=== PATIENT | female | born 1960 | race American Indian/Alaskan Native ===

== ENCOUNTER 2017-12-24 08:17 | Emergency (ER) | payer OTHER ==
[2017-12-24 08:37] VITALS: BP 159/86
[2017-12-24 09:20] LABS: Basophils # (Auto) 0.1 K/mm3 (0.0-0.1); Basophils % (Auto) 0.8 % (0.0-1.8); Eosinophils % (Auto) 0.2 % (0.0-4.3); Hematocrit 38.7 % (30.3-42.9); Lymphocytes # (Auto) 0.5 K/mm3 (1.2-5.4); Lymphocytes % (Auto) 5.5 % (13.4-35.0); Mean Corpuscular HGB Conc 31 % (30-34); Mean Corpuscular Volume 78 fl (79-97); Monocytes # (Auto) 0.4 K/mm3 (0.0-0.8); Monocytes % (Auto) 4.7 % (0.0-7.3); Platelet Count 497 K/mm3 (140-440); Red Blood Count 4.94 M/mm3 (3.65-5.03)
[2017-12-24 09:23] LABS: Mean Corpuscular Hemoglobin 24 pg (28-32); Red Cell Distribution Width 20.6 % (13.2-15.2)
[2017-12-24 09:38] LABS: Alanine Aminotransferase < 5 units/L (7-56); Albumin 3.9 g/dL (3.9-5); BUN/Creatinine Ratio 19; Blood Urea Nitrogen 21 mg/dL (7-17); Calcium 9.1 mg/dL (8.4-10.2); Hemolysis Index 4
== END 2017-12-24 11:07 | disposition left against medical advice (07) ==
LOC: ED 08:17
DX: R07.9 Chest pain, unspecified (principal); Z53.21 Procedure and treatment not carried out due to patient leaving prior to being seen by health care provider
CPT/HCPCS: 36415; 80053; 85025

== ENCOUNTER 2018-01-06 10:37 | Inpatient (IN) | payer OTHER ==
[2018-01-06] MEDS ORDERED: MORPHINE IV PRN (10:44)
[2018-01-06] MEDS: REGLAN IV SCH ×2 (12:31→18:21)
[2018-01-06] MEDS: ZOFRAN IV PRN ×2 (12:31→18:22)
[2018-01-06] MEDS: MORPHINE IV PRN ×2 (12:32→16:25)
[2018-01-06] MEDS: D5/0.45NS 1,000 ML IV SCH ×2 (12:33→19:40)
[2018-01-06 13:10] LABS: Basophils % (Auto) 0.4 % (0.0-1.8); Hematocrit 40.7 % (30.3-42.9); Lymphocytes # (Auto) 0.4 K/mm3 (1.2-5.4); Lymphocytes % (Auto) 5.3 % (13.4-35.0); Mean Corpuscular HGB Conc 32 % (30-34); Mean Corpuscular Volume 78 fl (79-97); Monocytes # (Auto) 0.6 K/mm3 (0.0-0.8); Monocytes % (Auto) 7.6 % (0.0-7.3); Platelet Count 423 K/mm3 (140-440); Red Blood Count 5.19 M/mm3 (3.65-5.03)
[2018-01-06 13:14] LABS: Mean Corpuscular Hemoglobin 25 pg (28-32); Red Cell Distribution Width 21.7 % (13.2-15.2)
[2018-01-06 13:18] LABS: Albumin 3.7 g/dL (3.9-5); Calcium 9.7 mg/dL (8.4-10.2)
[2018-01-06 13:21] LABS: INR 0.95 (0.87-1.13)
[2018-01-06 13:22] LABS: Partial Thromboplastin Time 28.3 Sec. (24.2-36.6)
[2018-01-06] MEDS: LOVENOX SUB-Q SCH (16:26)
[2018-01-06] MEDS: PROTONIX IV SCH (16:27)
--- NOTE | 2018-01-06 18:00 | History and Physical Report ---
History of Present Illness Date of examination: 01/06/18 Date of admission: 01/06/18 11:08 Chief complaint: Abdominal pain, n/V and inability to keep any food down for 4 days History of present illness: Pt is a 57 y/o lady with a history of Chronic afib, Diastolic heart failure, HTN , gastric bypass, pancreatitis who presented to my office today in company of her complaing of inability to keep any food down on account on intractable nausea sn vomting. vomits 4-5 x a day. Bilious. Associated with Upper abdominal pain. Dull in nature, 8-10/10 in severity. nonradiating. No aggravating or relieving factors. Denies any hematemesis or melena. No fever or chills. Pt was wheeled into my office on a wheel chair in severe abdominal pain with a bag continuing greenish vomitus. Direct admission was requested as pt reaffirmed that pt has not been able to eat for the past 4 days. On admission BUN was elevate and creatinine were eldvated to 19 and 1.4 respectively. transaminases were levated twith a total bili of 4.5 and elevated lipase of 239. Pt ws commence on iv hydration NPO, iv zofran pepcid and levaquin and Past History Past Medical History: atrial fib, diabetes, GERD, heart failure, hypertension Past Surgical History: Other (gastric bypas) Social history: denies: smoking, alcohol abuse, prescription drug abuse Family history: no significant family history Medications and Allergies Allergies Allergy/AdvReac Type Severity Reaction Status Date / Time amoxicillin [Amoxicillin] Allergy Unknown Verified 12/24/17 08:33 NSAIDS (Non-Steroidal Allergy Bleeding Verified 12/24/17 08:33 Anti-Inflamma prednisone Allergy Diarrhea Verified 12/24/17 08:33 Home Medications Medication Instructions Recorded Confirmed Last Taken Type Hydralazine HCl [hydrALAZINE] 100 mg PO TID 09/25/13 12/24/17 01/02/18 History Apixaban [Eliquis] 5 mg PO BID #60 tablet 12/29/17 01/02/18 Rx AtorvaSTATin [Lipitor] 20 mg PO QHS #30 tablet 12/29/17 01/02/18 Rx Bumetanide [Bumex 1 mg tab] 2 mg PO QDAY #30 tablet 12/29/17 01/02/18 Rx Carvedilol [Coreg] 12.5 mg PO BID #60 tablet 12/29/17 01/02/18 Rx Escitalopram [Lexapro] 10 mg PO DAILY #30 tablet 12/29/17 01/02/18 Rx Lisinopril [Zestril TAB] 20 mg PO BID #60 tablet 12/29/17 01/02/18 Rx Ondansetron [Zofran Odt] 4 mg PO Q8H PRN #30 tab.rapdis 12/29/17 01/02/18 Rx Spironolactone [Aldactone] 25 mg PO QDAY #30 tablet 12/29/17 01/02/18 Rx Sucralfate [Carafate] 1 gm PO Q6HR 30 Days oral.liqd 12/29/17 01/07/18 Rx Active Meds: Active Medications Enoxaparin Sodium (Lovenox) 40 mg SUB-Q QDAY [facility] Last Admin: 01/06/18 16:26 Dose: 40 mg Dextrose/Sodium Chloride (D5/0.45ns) 1,000 mls @ 150 mls/hr IV DIRECT [facility] Last Admin: 01/06/18 12:33 Dose: 150 mls/hr Metoclopramide HCl (Reglan) 10 mg IV Q8H [facility] Last Admin: 01/06/18 12:31 Dose: 10 mg Morphine Sulfate (Morphine) 2 mg IV Q4H PRN PRN Reason: Pain, Moderate (4-6) Last Admin: 01/06/18 16:25 Dose: 2 mg Ondansetron HCl (Zofran) 4 mg IV Q6H PRN PRN Reason: Nausea And Vomiting Last Admin: 01/06/18 12:31 Dose: 4 mg Pantoprazole Sodium (Protonix) 40 mg IV Q12H [facility] Last Admin: 01/06/18 16:27 Dose: 40 mg Review of Systems Constitutional: anorexia, fatigue, malaise, lethargy Ears, nose, mouth and throat: no deferred, no ear pain, no ear discharge Breasts: no deferred, no normal Cardiovascular: no chest pain, no orthopnea, no palpitations Respiratory: no cough, no cough with sputum, no excessive sputum Gastrointestinal: abdominal pain, nausea, vomiting, no diarrhea, no BRBPR Genitourinary Female: dyspareunia Musculoskeletal: no neck pain, no shooting arm pain, no low back pain Integumentary: no rash, no pruritis, no redness, no sores, no wounds Neurological: no head injury, no transient paralysis, no paralysis, no weakness , no parathesias, no tingling Psychiatric: anxiety, no memory loss, no change in sleep habits, no sleep disturbances Endocrine: no cold intolerance, no heat intolerance, no polyphagia, no excessive thirst Hematologic/Lymphatic: no easy bruising, no easy bleeding Allergic/Immunologic: no urticaria, no allergic rhinitis Exam - Constitutional Vitals: Temp Pulse Resp BP Pulse Ox 99.5 F 71 16 181/106 98 01/06/18 15:27 01/06/18 15:27 01/06/18 16:25 01/06/18 15:27 01/06/18 15:27 General appearance: Present: no acute distress, mild distress, well-nourished - EENT Eyes: Present: PERRL - Neck Neck: Present: supple, normal ROM - Respiratory Respiratory effort: normal Respiratory: bilateral: CTA - Cardiovascular Heart Sounds: Present: S1 & S2. Absent: rub, click - Extremities Extremities: pulses symmetrical, No edema Peripheral Pulses: within normal limits - Abdominal General gastrointestinal: Present: soft, non-tender, non-distended, normal bowel sounds - Integumentary Integumentary: Present: clear, warm, dry - Musculoskeletal Musculoskeletal: generalized weakness - Psychiatric Psychiatric: appropriate mood/affect, intact judgment & insight - Neurologic Neurologic: CNII-XII intact, moves all extremities Results - Labs CBC & Chem 7: 01/07/18 04:45 01/07/18 04:45 Labs: Abnormal lab results 01/06/18 01/06/18 01/06/18 Range/Units 12:15 12:15 12:15 RBC 5.19 H (3.65-5.03) M/mm3 MCV 78 L (79-97) fl MCH 25 L (28-32) pg RDW 21.7 H (13.2-15.2) % Lymph % (Auto) 5.3 L (13.4-35.0) % [place] % (Auto) 7.6 H (0.0-7.3) % Lymph # 0.4 L (1.2-5.4) K/mm3 Seg Neutrophils % 86.7 H (40.0-70.0) % Potassium 3.5 L (3.6-5.0) mmol/L Chloride 92.7 L (98-107) mmol/L Carbon Dioxide 16 L (22-30) mmol/L BUN 19 H (7-17) mg/dL Creatinine 1.4 H (0.7-1.2) mg/dL Glucose 116 H (65-100) mg/dL Phosphorus 2.20 L (2.5-4.5) mg/dL Total Bilirubin 4.50 H (0.1-1.2) mg/dL AST 200 H (5-40) units/L ALT 193 H (7-56) units/L Alkaline Phosphatase 887 H (35-129) units/L Albumin 3.7 L (3.9-5) g/dL Amylase (27-131) units/L Lipase (13-60) units/L 01/06/18 01/06/18 Range/Units 12:15 12:15 RBC (3.65-5.03) M/mm3 MCV (79-97) fl MCH (28-32) pg RDW (13.2-15.2) % Lymph % (Auto) (13.4-35.0) % [place] % (Auto) (0.0-7.3) % Lymph # (1.2-5.4) K/mm3 Seg Neutrophils % (40.0-70.0) % Potassium (3.6-5.0) mmol/L Chloride (98-107) mmol/L Carbon Dioxide (22-30) mmol/L BUN (7-17) mg/dL Creatinine (0.7-1.2) mg/dL Glucose (65-100) mg/dL Phosphorus (2.5-4.5) mg/dL Total Bilirubin (0.1-1.2) mg/dL AST (5-40) units/L ALT (7-56) units/L Alkaline Phosphatase (35-129) units/L Albumin (3.9-5) g/dL Amylase 239 H (27-131) units/L Lipase 251 H (13-60) units/L Assessment and Plan - Possible stoma stenosis from Gastic bypass NPO, IVF, iv protonix an zofran GI consult - ROCÍO- likey form acute tubular necrosis iv hydration and trend BUN CR - Gastroporesis NPO iv mophin and Zofran - GERD ibvprotonix - Acute on Chronic pancreatitis NPO IV hydration -Abormal liver enzymes Abdomina US for any evidence of biliray obstruction - Hypokalemai and hypophosphatemia Supplement DVT and GI ppx with lovenox and pepcid Spent 35 min during this admission
[2018-01-07] MEDS: APRESOLINE IV PRN (00:06)
[2018-01-07] MEDS: MORPHINE IV PRN ×6 (00:09→22:18)
[2018-01-07] MEDS: PROTONIX IV SCH ×2 (00:25→11:57)
[2018-01-07] MEDS: REGLAN IV SCH ×3 (03:14→19:36)
--- NOTE | 2018-01-07 03:21 | Ultrasound Report ---
FINAL REPORT EXAM: US ABDOMEN COMPLETE HISTORY: abdminal pain COMPARISON: CT of the abdomen and pelvis from December 2017. TECHNIQUE: Several real-time grayscale and color Doppler images were obtained. FINDINGS: There is increased echogenicity of the liver compatible with fatty infiltration. Dilatation the common bile duct measuring up to 10 millimeters. Gallbladder surgically absent. Dilatation the common bile duct may relate to patient's post cholecystectomy state. The spleen measures 7.7 centimeters in length within normal limits. The right kidney measures 10.5 centimeters in length. Left kidney measures 9.4 centimeters. No hydronephrosis. 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 Patient body habitus and bowel gas limits evaluation. Bowel gas obscures the pancreas. Technologist measures soft tissue structure in the right upper abdomen and questions mass. The major soft tissue structure represents wall thickened distal stomach. Similar findings seen on recent CT of the abdomen and pelvis. Recent CT of the abdomen pelvis demonstrated wall thickening and fat stranding at the margin of the distal stomach. Findings are concerning for gastritis. IMPRESSION: Gallbladder surgically absent. Mild dilatation the common bile duct which may relate to patient's post cholecystectomy state. Fatty infiltration of the liver. Persistent wall thickening of the distal stomach and gastric antrum concerning for gastritis. Neoplastic process involving the stomach is not excluded.
[2018-01-07] MEDS: D5W IV SCH ×2 (03:51→15:25)
[2018-01-07] MEDS: KCL IV SCH ×2 (03:51→15:25)
[2018-01-07] MEDS: NACL IV SCH ×2 (03:51→15:25)
[2018-01-07 05:15] LABS: Hemoglobin 11.5 gm/dl (10.1-14.3); Mean Corpuscular HGB Conc 33 % (30-34); Mean Corpuscular Volume 78 fl (79-97); Platelet Count 344 K/mm3 (140-440); Red Blood Count 4.51 M/mm3 (3.65-5.03)
[2018-01-07 05:20] LABS: Mean Corpuscular Hemoglobin 25 pg (28-32); Red Cell Distribution Width 21.6 % (13.2-15.2)
[2018-01-07 05:27] LABS: Albumin 3.2 g/dL (3.9-5); Calcium 8.8 mg/dL (8.4-10.2)
[2018-01-07 06:50] LABS: Band Neutrophils # (Manual) 0.6 K/mm3; Basophils % (Manual) 0 % (0.0-1.8); Eosinophils % (Manual) 0 % (0.0-4.3); Total Cells Counted 100
[2018-01-07 06:51] LABS: Anisocytosis 1+; Hypochromasia Rare; Macrocytosis Few
[2018-01-07] MEDS: LOVENOX SUB-Q SCH (09:31)
[2018-01-07] MEDS: APRESOLINE PO SCH ×2 (09:32→22:07)
[2018-01-07] MEDS: ZESTRIL PO SCH ×2 (09:32→22:07)
[2018-01-07] MEDS: COREG PO SCH ×2 (09:32→22:07)
[2018-01-07] MEDS: ZOFRAN IV PRN ×2 (09:35→18:10)
[2018-01-07] MEDS ORDERED: COREG PO SCH ×2 (10:00)
--- NOTE | 2018-01-07 20:58 | Progress Note ---
Assessment and Plan - Abdominal pain with N/V. Possible stomal stenosis from Gastric bypass - Pt had Lissette-En-Y in 2002 Continue with NPO, IVF, iv protonix an zofran GI consulted - ROCÍO vi hydration, Trend BUN and Cr - GERD Protonix Avoid NSAIDS - Acute on Chronic pancreatitis NPO IV hydration - Abnormal Liver enzymes- Total bili and transaminases Abdominal US Showed gastric wall thickening CBD dilatation thought to be secondary to post cholesystectomy for any evidence of biliary obstruction - Thickening of the wall of the stomach, concerning for neoplasm Awaitng GI consult for possible EGD and Bx - Hypokalemai and hypophosphatemia Supplement further DVT and GI ppx with lovenox and pepcid Subjective Date of service: 01/07/18 Principal diagnosis: Abdominla pain with N?V, pancratitis and fatty liver disease Interval history: Abdominal pain getting better. Nauseated but no vomiting Objective - Constitutional Vitals: Vital Signs - 12hr 01/07/18 14:27 Temperature 99.0 F Pulse Rate 51 L Respiratory 16 Rate Blood Pressure 125/73 O2 Sat by Pulse 98 Oximetry General appearance: Present: no acute distress, well-nourished - EENT Eyes: PERRL, EOM intact Ears: bilateral: bulging - Neck Neck: supple, normal ROM - Respiratory Respiratory: bilateral: CTA - Cardiovascular Rhythm: regular Heart Sounds: Present: S1 & S2. Absent: gallop, rub Extremities: pulses intact, No edema, normal color, Full ROM - Gastrointestinal General gastrointestinal: Present: soft, non-tender, non-distended, normal bowel sounds - Integumentary Integumentary: clear, warm, dry - Musculoskeletal Musculoskeletal: 1, strength equal bilaterally - Neurologic Neurologic: moves all extremities - Psychiatric Psychiatric: memory intact, appropriate mood/affect, intact judgment & insight - Labs CBC & Chem 7: 01/08/18 06:51 01/08/18 06:51 Labs: Abnormal lab results 01/07/18 01/07/18 Range/Units 04:45 04:45 MCV 78 L (79-97) fl MCH 25 L (28-32) pg RDW 21.6 H (13.2-15.2) % Seg Neuts % (Manual) 87.0 H (40.0-70.0) % Lymphocytes % (Manual) 1.0 L (13.4-35.0) % Lymphocytes # (Manual) 0.1 L (1.2-5.4) K/mm3 Potassium 3.3 L (3.6-5.0) mmol/L BUN 21 H (7-17) mg/dL Glucose 123 H (65-100) mg/dL Total Bilirubin 6.10 H (0.1-1.2) mg/dL AST 241 H (5-40) units/L ALT 158 H (7-56) units/L Alkaline Phosphatase 766 H (35-129) units/L Albumin 3.2 L (3.9-5) g/dL
[2018-01-08] MEDS: PROTONIX IV SCH ×2 (00:11→12:11)
[2018-01-08] MEDS: ZOFRAN IV PRN ×3 (00:11→23:08)
[2018-01-08] MEDS ORDERED: KCL IV SCH (01:00)
[2018-01-08] MEDS ORDERED: D5W IV SCH (01:00)
[2018-01-08] MEDS ORDERED: NACL IV SCH (01:00)
[2018-01-08] MEDS ORDERED: D5W/0.45% NACL/KCL 40 MEQ 40 MEQ/1,000 ML BAG IV SCH (01:00)
[2018-01-08 01:53] LABS: BUN/Creatinine Ratio 17; Blood Urea Nitrogen 19 mg/dL (7-17); Calcium 8.7 mg/dL (8.4-10.2); Hemolysis Index 17
[2018-01-08] MEDS: REGLAN IV SCH ×3 (03:22→18:33)
[2018-01-08] MEDS: NACL 0.9% 1000 ML 1,000 ML IV SCH ×2 (03:57→23:24)
[2018-01-08] MEDS: MORPHINE IV PRN ×5 (04:16→23:01)
[2018-01-08 07:30] LABS: Hematocrit 32.1 % (30.3-42.9); Hemoglobin 10.3 gm/dl (10.1-14.3); Mean Corpuscular HGB Conc 32 % (30-34); Mean Corpuscular Volume 78 fl (79-97); Platelet Count 293 K/mm3 (140-440); Red Blood Count 4.09 M/mm3 (3.65-5.03)
[2018-01-08 07:37] LABS: Mean Corpuscular Hemoglobin 25 pg (28-32); Red Cell Distribution Width 22.3 % (13.2-15.2)
[2018-01-08 07:49] LABS: Alanine Aminotransferase 138 units/L (7-56); Albumin 3.1 g/dL (3.9-5); BUN/Creatinine Ratio 18; Blood Urea Nitrogen 20 mg/dL (7-17); Calcium 8.7 mg/dL (8.4-10.2); Hemolysis Index 0
[2018-01-08] MEDS: LOVENOX SUB-Q SCH (09:11)
[2018-01-08] MEDS: APRESOLINE PO SCH ×2 (09:12→22:08)
[2018-01-08] MEDS: ZESTRIL PO SCH ×2 (09:12→22:09)
[2018-01-08] MEDS: COREG PO SCH ×2 (09:12→22:08)
[2018-01-08 10:57] LABS: Basophils % (Manual) 0 % (0.0-1.8); Eosinophils % (Manual) 0 % (0.0-4.3); Hypochromasia 1+; Total Cells Counted 100
[2018-01-08 10:58] LABS: Target Cells Few
[2018-01-08 10:59] LABS: Platelet Estimate Consistent w Auto
--- NOTE | 2018-01-08 11:24 | Event Note ---
Date: 01/08/18 - full GI consult dictated - MRCP given increase lFT's - EGD when stable
--- NOTE | 2018-01-08 12:05 | Progress Note ---
Assessment and Plan - Abdominal pain with nausea and vomiting. Possibly from stomal stenosis from Gastric bypass - Pt had Lissette-en-Y in 2002 Continue with NPO, IVF, iv protonix and zofran GI consulted. Input noted and appreciated. Pt stable CT of 12/25/18 showed none specific consolidation of fat strand adjacent to the distal end of the stomach and pancreas. consideration was for possible gastritis with inflammatory changes extending anteriorly adjacent to the stomach and mesentery Pt has a history of cervical cancer s/p surgery with ovarian cancer in 1995 - Thickening of the wall of the stomach, concerning for neoplasm GI input noted. For MRCP and EGD Discussed [facility] GI Dr. Pedersen - Elevated total bilirubin and Live enzymes Abdominal US Showed gastric wall thickening CBD dilatation thought to be secondary to post cholesystectomy. No other evidence of biliary obstruction - ROCÍO vi hydration, Trend BUN and Cr - GERD Protonix Avoid NSAIDS - Acute on Chronic Pancreatitis NPO IV hydration, - Elevated Alkaline Phosphatase; No evidence of obstruction. Worrisome for neoplasm - Hypokalemai and hypophosphatemia - corrected DVT and GI ppx with lovenox and pepcid Subjective Date of service: 01/08/18 Principal diagnosis: Abdominla pain with N?V, pancratitis and fatty liver disease Interval history: Pt seen and examined. Abdominal pain getting better. Nauseated but no vomiting. Reviewed lab reports as well as contaminated land consultant notes Objective - Constitutional Vitals: Vital Signs - 12hr 01/08/18 01/08/18 01/08/18 04:16 07:25 09:12 Temperature 98.0 F Pulse Rate 60 Respiratory 18 20 Rate Blood Pressure 125/71 121/75 O2 Sat by Pulse 97 Oximetry General appearance: Present: no acute distress, well-nourished - EENT Eyes: PERRL, EOM intact - Neck Neck: supple, normal ROM - Respiratory Respiratory effort: normal Respiratory: bilateral: CTA - Cardiovascular Rhythm: regular Heart Sounds: Present: S1 & S2. Absent: gallop, rub Extremities: pulses intact, No edema, normal color, Full ROM - Gastrointestinal General gastrointestinal: Present: soft, non-tender, non-distended, normal bowel sounds - Integumentary Integumentary: clear, warm, dry - Musculoskeletal Musculoskeletal: strength equal bilaterally - Neurologic Neurologic: moves all extremities - Psychiatric Psychiatric: memory intact, appropriate mood/affect, intact judgment & insight - Labs CBC & Chem 7: 01/08/18 06:51 01/08/18 06:51 Labs: Abnormal lab results 01/08/18 01/08/18 01/08/18 Range/Units 01:18 06:51 06:51 MCV 78 L (79-97) fl MCH 25 L (28-32) pg RDW 22.3 H (13.2-15.2) % Seg Neuts % (Manual) 92.0 H (40.0-70.0) % Lymphocytes % (Manual) 2.0 L (13.4-35.0) % Lymphocytes # (Manual) 0.1 L (1.2-5.4) K/mm3 Sodium 135 L (137-145) mmol/L Carbon Dioxide 20 L (22-30) mmol/L BUN 19 H 20 H (7-17) mg/dL Glucose 102 H 101 H (65-100) mg/dL Total Bilirubin 6.60 H (0.1-1.2) mg/dL AST 223 H (5-40) units/L ALT 138 H (7-56) units/L Alkaline Phosphatase 727 H (35-129) units/L Total Protein 5.6 L (6.3-8.2) g/dL Albumin 3.1 L (3.9-5) g/dL
--- NOTE | 2018-01-08 16:04 | Consultation ---
INDICATION: 1. Nausea and vomiting. 2. Abdominal pain. HISTORY OF PRESENT ILLNESS: The patient is a 57-year-old white female with a history of chronic AFib, heart failure, hypertension, status post gastric bypass and pancreatitis, now presents for abdominal pain. The patient reports that she has been unable to keep food down for the last 4-5 days. She reports she is having bilious emesis. She reports abdominal pain being in the epigastric area. She denies lower GI symptoms including diarrhea, constipation, or rectal bleeding. The patient reports she was at home for 4-5 days, her symptoms have persisted and subsequently, she was brought to the Emergency Room. GI is consulted to aid in management. The patient again with a history of AFib as noted above. PAST MEDICAL HISTORY: 1. AFib. 2. Diabetes. 3. GERD. 4. Heart failure. 5. Hypertension. PAST SURGICAL HISTORY: Status post gastric bypass. MEDICATIONS: See chart. ALLERGIES: AMOXICILLIN, NSAIDs, and PREDNISONE. SOCIAL HISTORY: Denies alcohol, tobacco, or IV drug abuse. FAMILY HISTORY: Negative for colon cancer, IBD, or liver disease. REVIEW OF SYSTEMS: GENERAL: Reports mild weakness. HEENT: No visual complaints or tinnitus. PULMONARY: No shortness of breath. CARDIOVASCULAR: No chest pain. GASTROINTESTINAL: Reports abdominal pain. All points of a 13-point review of systems otherwise negative. PHYSICAL EXAMINATION: VITAL SIGNS: Temperature of 98.0, pulse 60, respirations 20, and blood pressure 125/71. GENERAL: Fairly nourished female, in no acute distress. HEENT: Pupils are equal, round, and reactive. PULMONARY: Clear to auscultation bilaterally. CARDIOVASCULAR: Regular rate and rhythm. Normal S1, S2. ABDOMEN: Positive bowel sounds, soft. SKIN: No obvious rashes. LABORATORY DATA: Pertinent for white count of 5.3, hemoglobin and hematocrit of 10.3 and 32.1, and platelet count of 293. Chem-7 within normal limits. Total bilirubin 6.6, AST, ALT of 223 and 138 with an alkaline phosphatase of 727. Amylase and lipase initially 239 and 251. IMAGING: Recent ultrasound showed patient status post cholecystectomy with mildly dilated common bile duct and fatty liver. The patient reportedly had a recent CT scan showing inflammation around the stomach area. ASSESSMENT AND PLAN: A 57-year-old white female with a history of status post gastric bypass with chronic pancreatitis, now presents with abdominal pain with an increased lipase and increased liver function tests. The patient had a recent CT scan, raising the possibility of inflammation in the stomach. The patient now with noted increased liver function tests. Management as noted below. Pain secondary to peptic ulcer disease versus pancreatitis versus other. PLAN: 1. We will review CT scan and ultrasound done recently. 2. We will get liver-related labs including acute hepatitis panel. 3. MRCP to rule out biliary obstruction due to increase in liver function tests. 4. EGD based on MRCP results. 5. Antiemetics and pain medication per primary team. 6. Avoid liver toxic drugs. 7. We will follow. JOB# [id number] CAB/LYDIA MTDD
[2018-01-09] MEDS: PROTONIX IV SCH ×2 (00:18→12:11)
[2018-01-09] MEDS: MORPHINE IV PRN ×5 (03:20→21:54)
[2018-01-09] MEDS: REGLAN IV SCH ×3 (03:23→18:03)
[2018-01-09 06:19] LABS: Basophils % (Auto) 0.3 % (0.0-1.8); Eosinophils # (Auto) 0.1 K/mm3 (0.0-0.4); Eosinophils % (Auto) 1.2 % (0.0-4.3); Hematocrit 29.6 % (30.3-42.9); Hemoglobin 9.5 gm/dl (10.1-14.3); Lymphocytes # (Auto) 0.2 K/mm3 (1.2-5.4); Lymphocytes % (Auto) 3.6 % (13.4-35.0); Mean Corpuscular HGB Conc 32 % (30-34); Mean Corpuscular Volume 79 fl (79-97); Monocytes # (Auto) 0.7 K/mm3 (0.0-0.8); Monocytes % (Auto) 11.3 % (0.0-7.3); Platelet Count 298 K/mm3 (140-440); Red Blood Count 3.76 M/mm3 (3.65-5.03)
[2018-01-09 06:20] LABS: Mean Corpuscular Hemoglobin 25 pg (28-32); Red Cell Distribution Width 22.3 % (13.2-15.2)
[2018-01-09 06:41] LABS: Alanine Aminotransferase 126 units/L (7-56); Albumin 2.8 g/dL (3.9-5); BUN/Creatinine Ratio 19; Blood Urea Nitrogen 17 mg/dL (7-17); Calcium 8.4 mg/dL (8.4-10.2); Hemolysis Index 0
--- NOTE | 2018-01-09 11:20 | Cat Scan Report ---
CT ABDOMEN PELVIS WITH AND WITHOUT CONTRAST: HISTORY: Abdominal pain, evaluate for biliary obstruction. COMPARISON: CT abdomen pelvis with contrast dated 12/25/17. CT abdomen pelvis with contrast dated 08/16/15. TECHNIQUE: Helical CT in 1.25mm intervals before and after IV contrast. Sagittal and coronal reconstructions. FINDINGS: Lung bases: Mild cardiomegaly. The visualized lung bases are well aerated. Liver: Within normal limits. Biliary system: The gallbladder has been surgically removed. There is moderate intrahepatic biliary dilatation. The proximal common bile duct and hepatic ducts are dilated. There may be a stricture in the distal common bile duct. No obvious choledocholithiasis. Pancreas: Unremarkable. Spleen: Normal. Kidneys/ureters/bladder: Mild cortical thickening is suspected in both kidneys. There is an 8mm stone in the right renal pelvis. 2 calyceal stones in the inferior right kidney measure less than 5 mm. No left nephrolithiasis. The ureters and bladder are unremarkable. Adrenal glands: Low-density nodule measuring 1 cm in the left adrenal gland probably represents an adrenal adenoma. The right adrenal gland is within normal limits. Aorta: Mildly ectatic with scattered calcifications. Intestines: Previous surgical changes are noted in the proximal stomach. There appears to be diffuse gastric wall thickening in the antral region. The gastric wall measures up to 1.4 cm in this area. There is consolidation anterior and inferior to the stomach within the mesentery. There also appear to be multiple enlarged mesenteric lymph nodes inferior to the stomach. One of the largest lymph nodes measures 3.2 x 2.3 cm. The small bowel loops and colon are grossly unremarkable. Appendix: Appendectomy changes are suspected. Pelvic viscera: Hysterectomy. Ascites: None. Adenopathy: None. Musculoskeletal: The bony structures are mildly demineralized with degenerative change. No focal bony lesion is identified. The sacral neural stimulator device is noted. IMPRESSION: Abnormal stomach. Previous surgical changes in the stomach are noted, correlate with history. There appears to be marked gastric antral thickening with soft tissue or inflammatory infiltration into the mesentery. Enlarged mesenteric lymph nodes are identified. A neoplastic process such as gastric adenocarcinoma or gastric lymphoma should be considered. An inflammatory origin for this is thought less likely but could also be considered. Moderate delay dilatation. The probable stricture of the distal common bile duct. Right nephrolithiasis, nonobstructing. Surgical changes as described.
[2018-01-09] MEDS: LOVENOX SUB-Q SCH (11:46)
[2018-01-09] MEDS: COREG PO SCH ×2 (11:47→21:52)
[2018-01-09] MEDS: ZESTRIL PO SCH ×2 (11:47→21:46)
[2018-01-09] MEDS: APRESOLINE PO SCH ×2 (11:48→21:46)
--- NOTE | 2018-01-09 12:53 | Gastroenterology Progress Note ---
Assessment and Plan GI: upper abdominal pain w/ noted increasing LFT's - pt unable to get MRCP and will repeat ct scan today - probable egd in am based on ct scan results - pt may need ercp or other intervention based on ct scan but given previous surgery ERCP will be difficult - continue other meds and diet - will follow Subjective Date of service: 01/09/18 Principal diagnosis: Abdominla pain with N?V, pancratitis and fatty liver disease Interval history: pt reports some upper abdominal pain, denies other complaints Objective - Constitutional Vitals: Temp Pulse Resp BP Pulse Ox 99.0 F 57 L 20 148/77 95 01/09/18 07:17 01/09/18 07:17 01/09/18 07:17 01/09/18 11:47 01/09/18 07:17 General appearance: no acute distress - Respiratory Respiratory: bilateral: CTA - Cardiovascular Rhythm: regular Heart Sounds: Present: S1 & S2 - Gastrointestinal General gastrointestinal: Present: soft, non-tender, non-distended - Labs CBC & Chem 7: 01/09/18 05:03 01/09/18 05:03 Labs: Laboratory Results - last 24 hr 01/09/18 01/09/18 01/09/18 05:03 05:03 05:03 WBC 6.0 RBC 3.76 Hgb 9.5 L Hct 29.6 L MCV 79 MCH 25 L MCHC 32 RDW 22.3 H Plt Count 298 Lymph % (Auto) 3.6 L [place] % (Auto) 11.3 H Eos % (Auto) 1.2 Baso % (Auto) 0.3 Lymph # 0.2 L [place] # 0.7 Eos # 0.1 Baso # 0.0 Seg Neutrophils % 83.6 H Seg Neutrophils # 5.0 Sodium 137 Potassium 3.9 Chloride 102.1 Carbon Dioxide 22 Anion Gap 17 BUN 17 Creatinine 0.9 Estimated GFR > 60 BUN/Creatinine Ratio 19 Glucose 106 H Calcium 8.4 Total Bilirubin 7.00 H AST 212 H ALT 126 H Alkaline Phosphatase 698 H Total Protein 5.4 L Albumin 2.8 L Albumin/Globulin Ratio 1.1 Lipase 145 H
--- NOTE | 2018-01-09 14:59 | Progress Note ---
Assessment and Plan - Abdominal pain with N/V. resolving with NPO Pt had Lissette-En-Y in 2002 Continue with clear liquid and IVF, iv protonix an zofran - Possible gastric neoplasm per CT abdomen and pelvis that was done 01/09/18 with enlarged mesentric lymph nodes for EGD. GI following - Abnormal Liver enzymes- Total bili and transaminases- worsening Abdominal US Showed gastric wall thickening CBD dilatation likley secondarry to obstruction per CT abdomen and pelvis - ROCÍO - resolved vi hydration, Trend BUN and Cr - GERD Protonix Avoid NSAIDS - Acute on Chronic pancreatitis NPO IV hydration - Hypokalemai and hypophosphatemia Supplement further DVT and GI ppx with lovenox and pepcid Subjective Date of service: 01/09/18 Principal diagnosis: Abdominla pain with N?V, pancratitis and fatty liver disease Interval history: Abdominal pain getting better. Nauseated but no vomiting Objective - Constitutional Vitals: Vital Signs - 12hr 01/09/18 01/09/18 01/09/18 03:20 07:17 11:47 Temperature 99.0 F Pulse Rate 57 L Respiratory 20 20 Rate Blood Pressure 149/75 148/77 O2 Sat by Pulse 95 Oximetry General appearance: Present: no acute distress, well-nourished - EENT Eyes: PERRL, EOM intact, scleral icterus - Neck Neck: supple, normal ROM - Respiratory Respiratory effort: normal Respiratory: bilateral: CTA - Cardiovascular Rhythm: regular Heart Sounds: Present: S1 & S2. Absent: gallop, rub Extremities: pulses intact, No edema, normal color, Full ROM - Gastrointestinal General gastrointestinal: Present: soft, non-tender, non-distended, normal bowel sounds - Integumentary Integumentary: clear, warm, dry - Musculoskeletal Musculoskeletal: 1, strength equal bilaterally - Neurologic Neurologic: moves all extremities - Psychiatric Psychiatric: memory intact, appropriate mood/affect, intact judgment & insight - Labs CBC & Chem 7: 01/09/18 05:03 01/09/18 05:03 Labs: Abnormal lab results 01/09/18 01/09/18 01/09/18 Range/Units 05:03 05:03 05:03 Hgb 9.5 L (10.1-14.3) gm/dl Hct 29.6 L (30.3-42.9) % MCH 25 L (28-32) pg RDW 22.3 H (13.2-15.2) % Lymph % (Auto) 3.6 L (13.4-35.0) % [place] % (Auto) 11.3 H (0.0-7.3) % Lymph # 0.2 L (1.2-5.4) K/mm3 Seg Neutrophils % 83.6 H (40.0-70.0) % Glucose 106 H (65-100) mg/dL Total Bilirubin 7.00 H (0.1-1.2) mg/dL AST 212 H (5-40) units/L ALT 126 H (7-56) units/L Alkaline Phosphatase 698 H (35-129) units/L Total Protein 5.4 L (6.3-8.2) g/dL Albumin 2.8 L (3.9-5) g/dL Lipase 145 H (13-60) units/L
[2018-01-09] MEDS: NACL 0.9% 1000 ML 1,000 ML IV SCH (16:20)
[2018-01-10] MEDS: PROTONIX IV SCH ×2 (00:02→12:30)
[2018-01-10] MEDS: ZOFRAN IV PRN (00:02)
[2018-01-10] MEDS ORDERED: AMBIEN PO ONE (01:24)
[2018-01-10] MEDS: REGLAN IV SCH ×3 (03:23→18:14)
[2018-01-10] MEDS: MORPHINE IV PRN ×4 (03:24→21:44)
[2018-01-10] MEDS: NACL 0.9% 1000 ML 1,000 ML IV SCH ×3 (07:11→21:49)
--- NOTE | 2018-01-10 09:58 | Progress Note ---
Assessment and Plan - Abdominal pain with N/V resolving Pt had Lissette-En-Y in 2002 Continue with clear liquid and IVF, iv protonix an zofran - Possible gastric neoplasm per CT abdomen and pelvis that was done 01/09/18 with enlarged mesentric lymph nodes Gastric wall thickening for EGD. GI following - Abnormal Liver enzymes- Total bili and transaminases- worsening Abdominal US Showed gastric wall thickening CBD dilatation likley secondarry to obstruction per CT abdomen and pelvis - GERD Protonix Avoid NSAIDS - Hypokalemai and hypophosphatemia Supplement further DVT and GI ppx with lovenox and pepcid Subjective Date of service: 01/10/18 Principal diagnosis: Abdominla pain with N?V, pancratitis and fatty liver disease Interval history: Abdominal pain getting better. Nauseated but no vomiting Objective - Constitutional Vitals: Vital Signs - 12hr 01/09/18 01/09/18 01/10/18 22:00 23:28 07:18 Temperature 98.6 F 98.8 F Pulse Rate 56 L 54 L Pulse Rate [ 70 Right Radial] Respiratory 18 16 Rate Blood Pressure 117/59 148/79 O2 Sat by Pulse 97 97 98 Oximetry General appearance: Present: no acute distress, well-nourished - EENT Eyes: PERRL, EOM intact - Neck Neck: supple, normal ROM - Respiratory Respiratory effort: normal Respiratory: bilateral: CTA - Cardiovascular Rhythm: regular Heart Sounds: Present: S1 & S2. Absent: gallop, rub Extremities: pulses intact, No edema, normal color, Full ROM - Gastrointestinal General gastrointestinal: Present: soft, non-tender, non-distended, normal bowel sounds - Integumentary Integumentary: clear, warm, dry - Musculoskeletal Musculoskeletal: 1, strength equal bilaterally - Neurologic Neurologic: moves all extremities - Psychiatric Psychiatric: memory intact, appropriate mood/affect, intact judgment & insight - Labs CBC & Chem 7: 01/09/18 05:03 01/09/18 05:03
[2018-01-10] MEDS: LOVENOX SUB-Q SCH (10:34)
[2018-01-10 11:10] LABS: Iron 52 ug/dL (37-170); Total Iron Binding Capacity 248 mcg/dL (250-450)
[2018-01-10] MEDS ORDERED: DILAUDID ONE (13:33)
--- NOTE | 2018-01-10 13:57 | Anesthesia Day of Surgery ---
Anesthesia Day of Surgery - Day of Surgery Patient Examined: Yes Patient H&P Reviewed: Yes Patient is NPO: Yes Beta Blockers: Yes Cardiac Clearance: No Pulmonary Clearance: No
--- NOTE | 2018-01-10 13:57 | Anesthesia Consultation ---
Anesthesia Consult and Med Hx Date of service: 01/10/18 - Airway Anesthetic Teeth Evaluation: Good ROM Head & Neck: Adequate Mental/Hyoid Distance: Adequate Mallampati Class: Class III Intubation Access Assessment: Probably Good - Pulmonary Exam CTA: Yes - Cardiac Exam Cardiac Exam: No Murmur - Pre-Operative Health Status ASA Pre-Surgery Classification: ASA3 (HTN,CHF AFIB) Proposed Anesthetic Plan: MAC - Pulmonary Hx Smoking: No Hx Asthma: Yes Hx Respiratory Symptoms: No SOB: No COPD: No Hx Pneumonia: No Hx Sleep Apnea: No - Cardiovascular System Hx Hypertension: Yes Hx Coronary Artery Disease: Yes (HX. CHF) Hx Heart Attack/AMI: No Hx Angina: No Hx Cardia Arrhythmia: Yes (A fib ) Hx Pacemaker: No Hx Internal Defibrillator: No Hx Valvular Heart Disease: No Hx Heart Murmur: (hx. AFIB) Hx Peripheral Vascular Disease: No - Central Nervous System Hx Neuromuscular Disorder: No Hx Seizures: No CVA: No Hx Psychiatric Problems: No - Gastrointestinal Hx Ulcer: Yes (x3) Hx Gastroesophageal Reflux Disease: No (NAUSEA) - Endocrine Hx Renal Disease: No Hx End Stage Renal Disease: No Hx Cirrhosis: No Hx Liver Disease: No Hx Insulin Dependent Diabetes: No Hx Non-Insulin Dependent Diabetes: No Hx Thyroid Disease: No Hx Hypothyroidism: No Hx Hyperthyroidism: No - Hematic Hx Anemia: Yes Hx Sickle Cell Disease: No - Other Systems Hx Alcohol Use: No Hx Substance Use: No Hx Cancer: Yes Hx Obesity: Yes (BMI 35)
[2018-01-10] MEDS ORDERED: DIPRIVAN 10 MG/ML IV ONE ×2 (14:25)
[2018-01-10] MEDS ORDERED: WATER FOR IRRIG STERILE IR ONE (14:26)
--- NOTE | 2018-01-10 15:16 | Post Operative Note ---
Pre-op diagnosis: abdominal pain Post-op diagnosis: same Findings: EGD: hiatal hernia - gastric bypass noted - moderate/severe inflammation with ulcers and irregular inflamed mucosa noted extending anastomosis to duodenal side anastomosis (bx's) - though irregular not obviously malignant - remaining duodenum appeared normal Procedure: EGD Anesthesia: MAC Surgeon: RADHA LANDEROS Estimated blood loss: none Pathology: list Specimen disposition: to lab Condition: stable Disposition: floor
[2018-01-10] MEDS: APRESOLINE PO SCH ×2 (17:28→21:51)
[2018-01-10] MEDS: COREG PO SCH ×2 (17:28→21:52)
[2018-01-10] MEDS: ZESTRIL PO SCH ×2 (17:29→21:52)
[2018-01-10] MEDS: CARAFATE PO SCH (18:13)
[2018-01-11] MEDS: CARAFATE PO SCH ×5 (00:34→23:31)
[2018-01-11] MEDS: PROTONIX IV SCH ×2 (00:34→15:46)
[2018-01-11] MEDS: MORPHINE IV PRN ×6 (02:35→23:31)
[2018-01-11] MEDS: REGLAN IV SCH ×3 (02:35→19:14)
[2018-01-11 07:14] LABS: Hemoglobin 9.1 gm/dl (10.1-14.3); Red Blood Count 3.56 M/mm3 (3.65-5.03)
[2018-01-11 07:15] LABS: Mean Corpuscular HGB Conc 33 % (30-34); Mean Corpuscular Volume 79 fl (79-97); Platelet Count 266 K/mm3 (140-440)
[2018-01-11 07:18] LABS: Mean Corpuscular Hemoglobin 26 pg (28-32); Red Cell Distribution Width 22.7 % (13.2-15.2)
[2018-01-11 07:28] LABS: INR 0.97 (0.87-1.13)
--- NOTE | 2018-01-11 07:45 | Operative Report ---
INDICATION: 1. Abnormal CT scan. 2. Abdominal pain. MEDICATIONS: Propofol per [facility]ENO ATTENDANT. COMPLICATIONS: None. DESCRIPTION OF PROCEDURE: The patient was brought to procedure suite. The patient had the procedure discussed with her at length. All risks, complications, and benefits were discussed, which the patient signed for the procedure performed. The patient was placed in left lateral decubitus position. Mouth block was placed in the patient's oral cavity. After adequate sedation medication as above, endoscope placed in the mouth and brought to the level of the second portion of duodenum. Retroflexion view was performed. The patient's vital signs remained stable throughout the procedure. FINDINGS: There is a medium hiatal hernia at GE junction at 30 cm from the gums. Esophagus otherwise appeared grossly normal. There was noted to be ____ over the surgical site from gastric bypass noted in the distal gastric body. The proximal stomach was visualized, otherwise appeared to be normal. There was moderate erythema with inflammation and ulceration noted around the anastomosis site. Biopsies were taken. Just distal to the anastomosis site on duodenum side, there was noted to be 2 ulcers approximately 8 mm, white based, and superficial. Surrounding these ulcers was irregular, inflamed, erythematous mucosa of almost a circumferential pattern going towards the efferent limb. This was about a two-third circumferential just beyond the surgical site. Site was irregular and inflamed. There was still possible malignant would favor more ulcers with inflammation and erythema, but again malignancy is still possible. Multiple biopsies were taken and sent to pathology. The visualized afferent and efferent limbs of small bowel; otherwise, appeared normal. Retroflexion showed no other pathology other than noted above. The patient tolerated the procedure well. No complications during the procedure. IMPRESSION: 1. Hiatal hernia. 2. Otherwise, normal esophagus. 3. Proximal stomach to area of gastric bypass intact. 4. Inflamed, irregular, erythematous raised mucosa around the anastomosis and just distal to that with noted ulcers, multiple biopsies taken. Favor ulcer with inflammation, but malignancy is still possible. 5. Duodenum otherwise appeared normal. RECOMMENDATIONS: 1. Followup biopsy results. 2. PPI b.i.d. and Carafate suspension q.i.d. 3. Start p.o. 4. Given EGD findings and the patient is status post gastric bypass, the patient is not a great candidate for ERCP given possible biliary obstruction. We will consider other options. 5. We will follow. [facility]# [id number] YELENA/NTS
[2018-01-11 08:08] LABS: Alanine Aminotransferase 89 units/L (7-56); Albumin 2.8 g/dL (3.9-5); BUN/Creatinine Ratio 19; Blood Urea Nitrogen 13 mg/dL (7-17); Calcium 8.4 mg/dL (8.4-10.2); Hemolysis Index 1
[2018-01-11 08:57] LABS: Anisocytosis 2+; Basophils % (Manual) 0 % (0.0-1.8); Hypochromasia 1+; Target Cells Rare; Total Cells Counted 100
[2018-01-11 08:58] LABS: Platelet Estimate Consistent w Auto
--- NOTE | 2018-01-11 09:29 | Progress Note ---
Assessment and Plan - Abdominal pain with N/V resolving EGD showed "Moderate/severe inflammation with ulcers and irregular inflamed mucosa noted extending into anastomosis of gastric bypass site and to duodenal side of anastomosis (bx's) though irregular not obviously malignant. Hiatial hernia noted" Pt had Lissette-En-Y Gastic bypass in 2002 Continue with clear liquid and IVF, iv protonix and zofran - Possible gastric neoplasm per CT abdomen and pelvis that was done 01/09/18 with enlarged mesentric lymph nodes Gastric wall thickening for EGD. GI following -Biliary iobstruction Could this possilby be a pancreatic head neoplasm? Transminases improving. Alkaline Phosphatse and T. bili stil increasingTotal bili and transaminases- worsening Abdominal US Showed gastric wall thickening CBD dilatation likley secondarry to obstruction per CT abdomen and pelvis - Anemia of chonic disease - GERD Protonix Avoid NSAIDS - Hypokalemai and hypophosphatemia Supplement further DVT and GI ppx with lovenox and pepcid Subjective Date of service: 01/11/18 Principal diagnosis: Abdominla pain with N?V, pancratitis and fatty liver disease Interval history: Abdominal pain getting better. Nauseated but no vomiting. Had EGD yesterday Objective - Constitutional Vitals: Vital Signs - 12hr 01/11/18 07:23 Temperature 99.4 F Pulse Rate 54 L Respiratory 20 Rate Blood Pressure 143/70 O2 Sat by Pulse 96 Oximetry General appearance: Present: no acute distress, well-nourished - EENT Eyes: PERRL, EOM intact - Neck Neck: supple, normal ROM - Respiratory Respiratory effort: normal Respiratory: bilateral: CTA - Cardiovascular Rhythm: regular Heart Sounds: Present: S1 & S2. Absent: gallop, rub Extremities: pulses intact, No edema, normal color, Full ROM - Gastrointestinal General gastrointestinal: Present: soft, non-tender - Integumentary Integumentary: clear, warm, dry - Musculoskeletal Musculoskeletal: 1, strength equal bilaterally - Neurologic Neurologic: moves all extremities - Psychiatric Psychiatric: memory intact, appropriate mood/affect, intact judgment & insight - Labs CBC & Chem 7: 01/11/18 05:08 01/11/18 05:08 Labs: Abnormal lab results 01/10/18 01/10/18 01/11/18 Range/Units 10:21 10:21 05:08 RBC 3.56 L (3.65-5.03) M/mm3 Hgb 9.1 L (10.1-14.3) gm/dl Hct 28.0 L (30.3-42.9) % MCH 26 L (28-32) pg RDW 22.7 H (13.2-15.2) % Seg Neuts % (Manual) 95.0 H (40.0-70.0) % Lymphocytes % (Manual) 0 L (13.4-35.0) % Lymphocytes # (Manual) 0.0 L (1.2-5.4) K/mm3 Carbon Dioxide (22-30) mmol/L Glucose (65-100) mg/dL TIBC 248 L (250-450) mcg/dL Total Bilirubin (0.1-1.2) mg/dL AST (5-40) units/L ALT (7-56) units/L Alkaline Phosphatase (35-129) units/L Total Protein (6.3-8.2) g/dL Albumin (3.9-5) g/dL Vitamin B12 1087 H (211-911) pg/mL 01/11/18 Range/Units 05:08 RBC (3.65-5.03) M/mm3 Hgb (10.1-14.3) gm/dl Hct (30.3-42.9) % MCH (28-32) pg RDW (13.2-15.2) % Seg Neuts % (Manual) (40.0-70.0) % Lymphocytes % (Manual) (13.4-35.0) % Lymphocytes # (Manual) (1.2-5.4) K/mm3 Carbon Dioxide 20 L (22-30) mmol/L Glucose 112 H (65-100) mg/dL TIBC (250-450) mcg/dL Total Bilirubin 8.00 H (0.1-1.2) mg/dL AST 111 H (5-40) units/L ALT 89 H (7-56) units/L Alkaline Phosphatase 767 H (35-129) units/L Total Protein 5.4 L (6.3-8.2) g/dL Albumin 2.8 L (3.9-5) g/dL Vitamin B12 (211-911) pg/mL
[2018-01-11] MEDS: ZESTRIL PO SCH ×2 (10:32→21:07)
[2018-01-11] MEDS: LOVENOX SUB-Q SCH ×2 (10:33→10:50)
[2018-01-11] MEDS: COREG PO SCH ×2 (10:34→21:05)
[2018-01-11] MEDS: APRESOLINE PO SCH ×2 (10:35→21:07)
[2018-01-11] MEDS: NACL 0.9% 1000 ML 1,000 ML IV SCH (10:47)
--- NOTE | 2018-01-11 10:52 | Consultation ---
History of Present Illness - Reason for Consult Consult date: 01/11/18 - History of Present Illness 57 y/o female seen in consult for possible biliary obstruction. She presented with severe n/v for several days. Workup included EGD, which demonstrated significant ulceration in duodenum, but no obvious signs of malignancy. Her relevant surgical history includes gastric bypass surgery in 2002, cholecystectomy, and placement of a bladder stimulator. She has diastolic CHF and Afib for which she takes Eliquis at home. She has not taken this for ten days due to n/v. No other anticoagulant/antiplatelet use. She cannot get MRCP due to the stimulator. Past History Past Medical History: atrial fib, diabetes, GERD, heart failure, hypertension Past Surgical History: Other (gastric bypas) Social history: denies: smoking, alcohol abuse, prescription drug abuse Family history: no significant family history Medications and Allergies Allergies Allergy/AdvReac Type Severity Reaction Status Date / Time amoxicillin [Amoxicillin] Allergy Unknown Verified 12/24/17 08:33 NSAIDS (Non-Steroidal Allergy Bleeding Verified 12/24/17 08:33 Anti-Inflamma prednisone Allergy Diarrhea Verified 12/24/17 08:33 Home Medications Medication Instructions Recorded Confirmed Last Taken Type Hydralazine HCl [hydrALAZINE] 100 mg PO TID 09/25/13 12/24/17 01/02/18 History Apixaban [Eliquis] 5 mg PO BID #60 tablet 12/29/17 01/02/18 Rx AtorvaSTATin [Lipitor] 20 mg PO QHS #30 tablet 12/29/17 01/02/18 Rx Bumetanide [Bumex 1 mg tab] 2 mg PO QDAY #30 tablet 12/29/17 01/02/18 Rx Carvedilol [Coreg] 12.5 mg PO BID #60 tablet 12/29/17 01/02/18 Rx Escitalopram [Lexapro] 10 mg PO DAILY #30 tablet 12/29/17 01/02/18 Rx Lisinopril [Zestril TAB] 20 mg PO BID #60 tablet 12/29/17 01/02/18 Rx Ondansetron [Zofran Odt] 4 mg PO Q8H PRN #30 tab.rapdis 12/29/17 01/02/18 Rx Spironolactone [Aldactone] 25 mg PO QDAY #30 tablet 12/29/17 01/02/18 Rx Sucralfate [Carafate] 1 gm PO Q6HR 30 Days oral.liqd 12/29/17 01/07/18 Rx Active Meds: Active Medications Carvedilol (Coreg) 12.5 mg PO BID [facility] Last Admin: 01/11/18 10:34 Dose: 12.5 mg Enoxaparin Sodium (Lovenox) 40 mg SUB-Q QDAY [facility] Last Admin: 01/11/18 10:50 Dose: Not Given Hydralazine HCl (Apresoline) 10 mg IV Q6HR PRN PRN Reason: Systolic BP greater than 160 Last Admin: 01/07/18 00:06 Dose: 10 mg Hydralazine HCl (Apresoline) 100 mg PO BID [facility] Last Admin: 01/11/18 10:35 Dose: 100 mg Sodium Chloride (Nacl 0.9% 1000 Ml) 1,000 mls @ 75 mls/hr IV DIRECT [facility] Last Admin: 01/11/18 10:47 Dose: 75 mls/hr Lisinopril (Zestril) 20 mg PO BID [facility] Last Admin: 01/11/18 10:32 Dose: 20 mg Metoclopramide HCl (Reglan) 10 mg IV Q8H [facility] Last Admin: 01/11/18 02:35 Dose: 10 mg Morphine Sulfate (Morphine) 4 mg IV Q4H PRN PRN Reason: Pain , Severe (7-10) Last Admin: 01/11/18 10:36 Dose: 4 mg Ondansetron HCl (Zofran) 4 mg IV Q6H PRN PRN Reason: Nausea And Vomiting Last Admin: 01/10/18 00:02 Dose: 4 mg Pantoprazole Sodium (Protonix) 40 mg IV Q12H [facility] Stop: 01/11/18 14:59 Last Admin: 01/11/18 00:34 Dose: 40 mg Pantoprazole Sodium (Protonix) 40 mg PO BID [facility] Sucralfate (Carafate) 1 gm PO Q6HR [facility] Last Admin: 01/11/18 05:54 Dose: 1 gm Exam - Constitutional Vitals: Temp Pulse Resp BP Pulse Ox 99.4 F 54 L 20 143/70 96 01/11/18 07:23 01/11/18 10:34 01/11/18 07:23 01/11/18 10:34 01/11/18 07:23 General appearance: Present: no acute distress - EENT Eyes: Present: PERRL ENT: hearing intact, clear oral mucosa - Neck Neck: Present: supple, normal ROM - Respiratory Respiratory effort: normal - Abdominal General gastrointestinal: Present: soft, non-tender, non-distended, normal bowel sounds - Psychiatric Psychiatric: appropriate mood/affect - Neurologic Neurologic: CNII-XII intact Results - Labs CBC & Chem 7: 01/11/18 05:08 01/11/18 05:08 Labs: Abnormal lab results 01/10/18 01/10/18 01/10/18 Range/Units 10:21 10:21 13:56 RBC (3.65-5.03) M/mm3 Hgb (10.1-14.3) gm/dl Hct (30.3-42.9) % MCH (28-32) pg RDW (13.2-15.2) % Seg Neuts % (Manual) (40.0-70.0) % Lymphocytes % (Manual) (13.4-35.0) % Lymphocytes # (Manual) (1.2-5.4) K/mm3 Carbon Dioxide (22-30) mmol/L Glucose (65-100) mg/dL POC Glucose 110 H (70-105) TIBC 248 L (250-450) mcg/dL Total Bilirubin (0.1-1.2) mg/dL AST (5-40) units/L ALT (7-56) units/L Alkaline Phosphatase (35-129) units/L Total Protein (6.3-8.2) g/dL Albumin (3.9-5) g/dL Vitamin B12 1087 H (211-911) pg/mL 01/11/18 01/11/18 Range/Units 05:08 05:08 RBC 3.56 L (3.65-5.03) M/mm3 Hgb 9.1 L (10.1-14.3) gm/dl Hct 28.0 L (30.3-42.9) % MCH 26 L (28-32) pg RDW 22.7 H (13.2-15.2) % Seg Neuts % (Manual) 95.0 H (40.0-70.0) % Lymphocytes % (Manual) 0 L (13.4-35.0) % Lymphocytes # (Manual) 0.0 L (1.2-5.4) K/mm3 Carbon Dioxide 20 L (22-30) mmol/L Glucose 112 H (65-100) mg/dL POC Glucose (70-105) TIBC (250-450) mcg/dL Total Bilirubin 8.00 H (0.1-1.2) mg/dL AST 111 H (5-40) units/L ALT 89 H (7-56) units/L Alkaline Phosphatase 767 H (35-129) units/L Total Protein 5.4 L (6.3-8.2) g/dL Albumin 2.8 L (3.9-5) g/dL Vitamin B12 (211-911) pg/mL - Imaging and Cardiology CT scan - abdomen: report reviewed, image reviewed US - abdomen: report reviewed, image reviewed Assessment and Plan There is concern for biliary obstruction given her elevated AP, Tbili, and AST/ ALT. Lipase is only marginally elevated. Etiology of the potential obstruction includes mucosal inflammation near the ampulla, much less likely malignancy. Calculi are not likely due to her history of cholecystectomy. The abdominal exan is relatively benign, but per nursing, she is on a significant amount of narcotic medication. Her CBD is dilated on US and CT, but this could be due to being post cholecystectomy. While MRCP would have been the ideal evaluation, this is precluded due to the stimulator. I will perform PTC with possible intervention. This was discussed in detail with the patient.
[2018-01-11] MEDS ORDERED: XYLOCAINE 2% INFILTRATI ONE (12:02)
[2018-01-11] MEDS ORDERED: HEPARIN 10,000 UNITS/10 ML ONE (12:02)
[2018-01-11] MEDS ORDERED: NACL 0.9% 500 ML IR ONE (12:02)
--- NOTE | 2018-01-11 12:09 | Gastroenterology Progress Note ---
Assessment and Plan GI: pt w/ abdominal pain, ct scan possible gastric pathology - EGD w/ irregular ulcerated mucosa surgical area/duodenum - follow EGD bx results - continue PPI/Carafate Biliary: increase LFT's w/ possible biliary stricture - given EGD findings and s/p gastric bypass ercp not good option - pt for PTC today, further rec based on ptc results Subjective Date of service: 01/11/18 Principal diagnosis: Abdominla pain with N?V, pancratitis and fatty liver disease Interval history: reprots still some abdominal pain but improved Objective - Constitutional Vitals: Temp Pulse Resp BP Pulse Ox 99.3 F 69 18 142/73 97 01/11/18 11:47 01/11/18 11:47 01/11/18 11:47 01/11/18 11:47 01/11/18 11:47 General appearance: no acute distress - Respiratory Respiratory: bilateral: CTA - Cardiovascular Rhythm: regular Heart Sounds: Present: S1 & S2 - Gastrointestinal General gastrointestinal: Present: soft, non-tender, non-distended - Labs CBC & Chem 7: 01/11/18 05:08 01/11/18 05:08 Labs: Laboratory Results - last 24 hr 01/10/18 01/11/18 01/11/18 13:56 05:08 05:08 WBC 7.1 RBC 3.56 L Hgb 9.1 L Hct 28.0 L MCV 79 MCH 26 L MCHC 33 RDW 22.7 H Plt Count 266 Add Manual Diff Complete Total Counted 100 Seg Neuts % (Manual) 95.0 H Band Neutrophils % 0 Lymphocytes % (Manual) 0 L Reactive Lymphs % (Man) 0 Monocytes % (Manual) 4.0 Eosinophils % (Manual) 1.0 Basophils % (Manual) 0 Metamyelocytes % 0 Myelocytes % 0 Promyelocytes % 0 Blast Cells % 0 Nucleated RBC % Not Reportable Seg Neutrophils # Man 6.7 Band Neutrophils # 0.0 Lymphocytes # (Manual) 0.0 L Abs React Lymphs (Man) 0.0 Monocytes # (Manual) 0.3 Eosinophils # (Manual) 0.1 Basophils # (Manual) 0.0 Metamyelocytes # 0.0 Myelocytes # 0.0 Promyelocytes # 0.0 Blast Cells # 0.0 WBC Morphology Not Reportable Hypersegmented Neuts Not Reportable Hyposegmented Neuts Not Reportable Hypogranular Neuts Not Reportable Smudge Cells Not Reportable Toxic Granulation Not Reportable Toxic Vacuolation Not Reportable Dohle Bodies Not Reportable Pelger-Huet Anomaly Not Reportable Fermin Rods Not Reportable Platelet Estimate Consistent w auto Clumped Platelets Not Reportable Plt Clumps, EDTA Not Reportable Large Platelets Not Reportable Giant Platelets Not Reportable Platelet Satelliting Not Reportable Plt Morphology Comment Not Reportable RBC Morphology Not Reportable Dimorphic RBCs Not Reportable Polychromasia Not Reportable Hypochromasia 1+ Poikilocytosis Not Reportable Anisocytosis 2+ Microcytosis 1+ Macrocytosis Not Reportable Spherocytes Not Reportable Pappenheimer Bodies Not Reportable Sickle Cells Not Reportable Target Cells Rare Tear Drop Cells Not Reportable Ovalocytes Not Reportable Helmet Cells Not Reportable [place] Bodies Not Reportable [place] Rings Not Reportable Ola Cells Not Reportable Bite Cells Not Reportable Crenated Cell Not Reportable Elliptocytes Not Reportable Acanthocytes (Spur) Not Reportable Rouleaux Not Reportable Hemoglobin C Crystals Not Reportable Schistocytes Not Reportable Malaria parasites Not Reportable Marko Bodies Not Reportable Hem Pathologist Commnt No PT 13.4 INR 0.97 Sodium Potassium Chloride Carbon Dioxide Anion Gap BUN Creatinine Estimated GFR BUN/Creatinine Ratio Glucose POC Glucose 110 H Calcium Total Bilirubin AST ALT Alkaline Phosphatase Total Protein Albumin Albumin/Globulin Ratio 01/11/18 05:08 WBC RBC Hgb Hct MCV MCH MCHC RDW Plt Count Add Manual Diff Total Counted Seg Neuts % (Manual) Band Neutrophils % Lymphocytes % (Manual) Reactive Lymphs % (Man) Monocytes % (Manual) Eosinophils % (Manual) Basophils % (Manual) Metamyelocytes % Myelocytes % Promyelocytes % Blast Cells % Nucleated RBC % Seg Neutrophils # Man Band Neutrophils # Lymphocytes # (Manual) Abs React Lymphs (Man) Monocytes # (Manual) Eosinophils # (Manual) Basophils # (Manual) Metamyelocytes # Myelocytes # Promyelocytes # Blast Cells # WBC Morphology Hypersegmented Neuts Hyposegmented Neuts Hypogranular Neuts Smudge Cells Toxic Granulation Toxic Vacuolation Dohle Bodies Pelger-Huet Anomaly [place] Rods Platelet Estimate Clumped Platelets Plt Clumps, EDTA Large Platelets Giant Platelets Platelet Satelliting Plt Morphology Comment RBC Morphology Dimorphic RBCs Polychromasia Hypochromasia Poikilocytosis Anisocytosis Microcytosis Macrocytosis Spherocytes Pappenheimer Bodies Sickle Cells Target Cells Tear Drop Cells Ovalocytes Helmet Cells Cast[place] Bodies [place] Rings Hyacinth Cells Bite Cells Crenated Cell Elliptocytes Acanthocytes (Spur) Rouleaux Hemoglobin C Crystals Schistocytes Malaria parasites Marko Bodies Hem Pathologist Commnt PT INR Sodium 138 Potassium 3.8 Chloride 104.5 Carbon Dioxide 20 L Anion Gap 17 BUN 13 Creatinine 0.7 Estimated GFR > 60 BUN/Creatinine Ratio 19 Glucose 112 H POC Glucose Calcium 8.4 Total Bilirubin 8.00 H AST 111 H ALT 89 H Alkaline Phosphatase 767 H Total Protein 5.4 L Albumin 2.8 L Albumin/Globulin Ratio 1.1
[2018-01-11] MEDS ORDERED: NACL 0.9% 250ML 250 ML ONE (12:12)
[2018-01-11] MEDS ORDERED: LEVAQUIN 500MG/100ML 500 MG/100 ML BAG IV ONE (12:15)
[2018-01-11] MEDS: VERSED ONE ×4 (12:42→13:35)
[2018-01-11] MEDS: SUBLIMAZE ONE ×5 (12:42→13:09)
[2018-01-11] MEDS ORDERED: SUBLIMAZE ONE (13:24)
[2018-01-11] MEDS: ZOFRAN IV PRN (14:34)
--- NOTE | 2018-01-11 14:59 | Event Note ---
Date: 01/11/18 Spoke with both the GI physician and primary physician. A percutaneous biliary drain has been placed. There can occasionally be a SIRS response after biliary system manipulation. As such, I suggested that the patient be placed on broad- spectrum IV antibiotics, be given a fluid bolus, and be monitored more closely for the next 12 hours or so.
--- NOTE | 2018-01-11 15:05 | Operative Report ---
Operative Report Operative Report: Procedure: 1. Percutaneous transhepatic cholangiography 2. Percutaneous placement of a transhepatic biliary drainage catheter Date of Procedure: 01/11/2018 History/Indication: 57-year-old female with a history of gastric bypass and cholecystectomy, now presenting with several days of nausea and vomiting. Her LFTs, bilirubin, and alkaline phosphatase were all found to be elevated. MRCP is contraindicated due to a neural stimulator. Physician: Félix Eagle MD Technique/Procedural Details: The patient was placed in the supine position. Preoperative Levaquin was administered. The patient was prepped and draped in the usual sterile fashion. A timeout was performed. Preliminary sonographic evaluation of the right upper quadrant was performed. An appropriate access site was chosen using both ultrasound and fluoroscopic landmarks. Local anesthetic was administered. Under fluoroscopic guidance, a 21-gauge needle was advanced into the liver between the right 10th and 11th rib space. A small amount of contrast was injected until the biliary system was opacified. A inferior/posterior right biliary radical was identified and accessed under fluoroscopic guidance. An 018 [place] wire was advanced through the needle and into the distal common bile duct. A 4 [place] vertebral catheter was advanced over the wire, and the wire was removed. Contrast injection was performed to confirm placement. A Glidewire was used to allow the 4 [place] vertebral catheter to maneuver into the small bowel. Contrast was again injected to confirm placement within the small bowel. The vertebral catheter was exchanged for multiple tissue dilators over a superstiff Amplatz wire. Thereafter, an 8 [place] Flexima biliary catheter was advanced into the small bowel. Contrast was again injected. The locking loop was formed. A drainage bag was connected. The catheter was secured to the skin with 2-0 Prolene and a stat lock. A post drainage image was acquired. Sterile dressings were placed. The patient tolerated the procedure well and remained hemodynamically stable throughout. Discussion: There is dilatation of the central and more peripheral bile ducts bilaterally. Additionally, the entirety of the biliary tree appears somewhat irregular, suggestive of an ongoing/chronic process. There is severe dilatation of the midportion of the common bile duct, with distal stenosis. The opacified portion of the afferent limb appears normal. There is successful placement of an 8 [place] biliary drainage catheter via a right posterior/inferior biliary radical. The newly placed drain pills and decompresses the biliary system adequately. Further evaluation of the etiology of common bile duct stenosis will have to be performed. This may be done either via MRI after explant of the neurostimulator , which the patient says she does not use any longer. Additionally, a further attempt at ERCP with visualization of the common bile duct, possibly in the form of a rendezvous procedure, can be considered as well. These details were discussed with the referring hogshead hand. Specimen: None EBL: <5 cc Sedation start time: 12:42 Sedation end time: 13:58
[2018-01-11] MEDS: PROTONIX PO SCH (21:07)
[2018-01-11 23:17] LABS: ANA Screen, IFA Positive (Negative)
[2018-01-12] MEDS: APRESOLINE IV PRN ×2 (01:10→16:19)
[2018-01-12] MEDS: REGLAN IV SCH ×3 (03:03→20:28)
[2018-01-12] MEDS: MORPHINE IV PRN ×2 (03:03→06:52)
[2018-01-12] MEDS: NACL 0.9% 1000 ML 1,000 ML IV SCH ×2 (03:09→20:28)
[2018-01-12 06:46] LABS: Hematocrit 28.3 % (30.3-42.9); Hemoglobin 8.9 gm/dl (10.1-14.3); Mean Corpuscular HGB Conc 31 % (30-34); Mean Corpuscular Volume 80 fl (79-97); Platelet Count 276 K/mm3 (140-440); Red Blood Count 3.51 M/mm3 (3.65-5.03)
[2018-01-12] MEDS: CARAFATE PO SCH ×3 (06:52→20:33)
[2018-01-12 06:55] LABS: Mean Corpuscular Hemoglobin 25 pg (28-32); Red Cell Distribution Width 23.2 % (13.2-15.2)
[2018-01-12 07:00] LABS: Alanine Aminotransferase 67 units/L (7-56); Albumin 2.7 g/dL (3.9-5); BUN/Creatinine Ratio 19; Blood Urea Nitrogen 13 mg/dL (7-17); Calcium 8.3 mg/dL (8.4-10.2); Hemolysis Index 4
[2018-01-12 07:37] LABS: Total Cells Counted 100
[2018-01-12 07:38] LABS: Basophils % (Manual) 0 % (0.0-1.8); Eosinophils % (Manual) 0 % (0.0-4.3); RBC Morphology Normal
--- NOTE | 2018-01-12 08:43 | Progress Note ---
Assessment and Plan - Gastric vs biliary malignancy. EGD showed "Moderate/severe inflammation with ulcers and irregular inflamed mucosa noted extending into anastomosis of gastric bypass site and to duodenal side of anastomosis (bx's) though irregular not obviously malignant. Hiatial hernia noted" Pt had Lissette-En-Y Gastic bypass in 2002 Oncology consult. Communicatdd with Dr. Anderson Continue with clear liquid and IVF, iv protonix and zofran optimize pain control -Biliary obstruction Possilbe CA head of pancrease Could this possilby be a pancreatic head neoplasm? Transminases improving. Alkaline Phosphatse and T. bili stil increasing Total bili and transaminases- worsening Abdominal US Showed gastric wall thickening CBD dilatation likley secondarry to obstruction per CT abdomen and pelvis - Anemia of chonic disease - GERD Protonix Avoid NSAIDS - Hypokalemai and hypophosphatemia Supplement further DVT and GI ppx with lovenox and pepcid Subjective Date of service: 01/12/18 Principal diagnosis: Abdominla pain with N?V, pancratitis and fatty liver disease Interval history: Abdominal pain getting worse. Nauseated but no vomiting. Had EGD 01/10/18 Objective - Constitutional Vitals: Vital Signs - 12hr 01/12/18 01:03 Temperature 99.1 F Pulse Rate 80 Respiratory 17 Rate Blood Pressure 184/90 O2 Sat by Pulse 95 Oximetry General appearance: Present: no acute distress, well-nourished - EENT Eyes: PERRL, EOM intact Ears: bilateral: normal - Neck Neck: supple, normal ROM - Respiratory Respiratory effort: normal Respiratory: bilateral: CTA - Breasts Breasts: normal - Cardiovascular Rhythm: regular Heart Sounds: Present: S1 & S2. Absent: gallop, rub Extremities: pulses intact, No edema, normal color, Full ROM - Gastrointestinal General gastrointestinal: Present: tender, normal bowel sounds - Integumentary Integumentary: clear, warm, dry - Musculoskeletal Musculoskeletal: 1, strength equal bilaterally - Neurologic Neurologic: moves all extremities - Psychiatric Psychiatric: memory intact, appropriate mood/affect, intact judgment & insight - Labs CBC & Chem 7: 01/12/18 05:50 01/12/18 05:50 Labs: Abnormal lab results 01/09/18 01/10/18 01/11/18 Range/Units 05:03 13:56 05:08 RBC (3.65-5.03) M/mm3 Hgb (10.1-14.3) gm/dl Hct (30.3-42.9) % MCH (28-32) pg RDW (13.2-15.2) % Seg Neuts % (Manual) 95.0 H (40.0-70.0) % Lymphocytes % (Manual) 0 L (13.4-35.0) % Seg Neutrophils # Man (1.8-7.7) K/mm3 Lymphocytes # (Manual) 0.0 L (1.2-5.4) K/mm3 Sodium (137-145) mmol/L Carbon Dioxide (22-30) mmol/L Glucose (65-100) mg/dL POC Glucose 110 H (70-105) Calcium (8.4-10.2) mg/dL Total Bilirubin (0.1-1.2) mg/dL AST (5-40) units/L ALT (7-56) units/L Alkaline Phosphatase (35-129) units/L Total Protein (6.3-8.2) g/dL Albumin (3.9-5) g/dL SOHAIL Screen Positive H (Negative) SOHAIL Titer 1:320 H (Negative) 01/12/18 01/12/18 Range/Units 05:50 05:50 RBC 3.51 L (3.65-5.03) M/mm3 Hgb 8.9 L (10.1-14.3) gm/dl Hct 28.3 L (30.3-42.9) % MCH 25 L (28-32) pg RDW 23.2 H (13.2-15.2) % Seg Neuts % (Manual) 79.0 H (40.0-70.0) % Lymphocytes % (Manual) (13.4-35.0) % Seg Neutrophils # Man 8.4 H (1.8-7.7) K/mm3 Lymphocytes # (Manual) (1.2-5.4) K/mm3 Sodium 133 L (137-145) mmol/L Carbon Dioxide 19 L (22-30) mmol/L Glucose 101 H (65-100) mg/dL POC Glucose (70-105) Calcium 8.3 L (8.4-10.2) mg/dL Total Bilirubin 4.10 H (0.1-1.2) mg/dL AST 58 H (5-40) units/L ALT 67 H (7-56) units/L Alkaline Phosphatase 688 H (35-129) units/L Total Protein 5.5 L (6.3-8.2) g/dL Albumin 2.7 L (3.9-5) g/dL SOHAIL Screen (Negative) SOHAIL Titer (Negative)
[2018-01-12] MEDS ORDERED: DILAUDID IV PRN ×2 (08:52→11:44)
[2018-01-12] MEDS ORDERED: ZOSYN/NS 3.375GM/50ML 3.375 GM/50 ML BAG IV SCH (09:00)
[2018-01-12] MEDS: FLAGYL 500 MG/100 ML 500 MG/100 ML BAG IV SCH ×3 (10:15→22:25)
[2018-01-12] MEDS: APRESOLINE PO SCH ×2 (11:16→22:26)
[2018-01-12] MEDS: COREG PO SCH ×2 (11:17→22:30)
[2018-01-12] MEDS: PROTONIX PO SCH ×2 (11:17→22:26)
[2018-01-12] MEDS: ZESTRIL PO SCH ×2 (11:17→22:26)
[2018-01-12] MEDS ORDERED: DILAUDID IV ONE (11:47)
[2018-01-12] MEDS: LEVAQUIN 750MG/150ML 750 MG/150 ML BAG IV SCH (12:15)
[2018-01-12] MEDS: LOVENOX SUB-Q SCH (12:16)
[2018-01-12] MEDS ORDERED: ZOSYN/NS 2.25 GM/50ML 2.25 GM/50 ML BAG IV SCH (14:00)
[2018-01-12] MEDS: DILAUDID IV PRN ×2 (16:15→20:27)
--- NOTE | 2018-01-12 17:30 | Gastroenterology Progress Note ---
Assessment and Plan GI: pt presents w/ abdominal pain, abnormal ct scan with possible gastric malignancy/biliary stricture with increase lft's - EGD bx's pre-junior consistent with malignancy, final results pending - s/p PTC - awaiting Oncology consult - discussed w/ EUH surgery, would prefer pt to have biliary drain capped off and then be seen as outpt for further management - follow labs - can consider d/c when stable - no changes, will follow Subjective Date of service: 01/12/18 Principal diagnosis: Abdominla pain with N?V, pancratitis and fatty liver disease Interval history: - reports still w/ abdominal pain but improving Objective - Constitutional Vitals: Temp Pulse Resp BP Pulse Ox 99.8 F H 87 20 173/87 93 01/12/18 16:13 01/12/18 16:13 01/12/18 16:13 01/12/18 16:19 01/12/18 16:13 General appearance: no acute distress - Respiratory Respiratory: bilateral: CTA - Cardiovascular Rhythm: regular Heart Sounds: Present: S1 & S2 - Gastrointestinal General gastrointestinal: Present: soft, non-tender, non-distended - Labs CBC & Chem 7: 01/12/18 05:50 01/12/18 05:50 Labs: Laboratory Results - last 24 hr 01/09/18 01/10/18 01/12/18 05:03 10:21 05:50 WBC 10.6 RBC 3.51 L Hgb 8.9 L Hct 28.3 L MCV 80 MCH 25 L MCHC 31 RDW 23.2 H Plt Count 276 Add Manual Diff Complete Total Counted 100 Seg Neuts % (Manual) 79.0 H Band Neutrophils % 0 Lymphocytes % (Manual) 17.0 Reactive Lymphs % (Man) 0 Monocytes % (Manual) 4.0 Eosinophils % (Manual) 0 Basophils % (Manual) 0 Metamyelocytes % 0 Myelocytes % 0 Promyelocytes % 0 Blast Cells % 0 Nucleated RBC % Not Reportable Seg Neutrophils # Man 8.4 H Band Neutrophils # 0.0 Lymphocytes # (Manual) 1.8 Abs React Lymphs (Man) 0.0 Monocytes # (Manual) 0.4 Eosinophils # (Manual) 0.0 Basophils # (Manual) 0.0 Metamyelocytes # 0.0 Myelocytes # 0.0 Promyelocytes # 0.0 Blast Cells # 0.0 WBC Morphology Not Reportable Hypersegmented Neuts Not Reportable Hyposegmented Neuts Not Reportable Hypogranular Neuts Not Reportable Smudge Cells Not Reportable Toxic Granulation Not Reportable Toxic Vacuolation Not Reportable Dohle Bodies Not Reportable Pelger-Huet Anomaly Not Reportable Fermin Rods Not Reportable Platelet Estimate Not Reportable Clumped Platelets Not Reportable Plt Clumps, EDTA Not Reportable Large Platelets Not Reportable Giant Platelets Not Reportable Platelet Satelliting Not Reportable Plt Morphology Comment Not Reportable RBC Morphology Normal Dimorphic RBCs Not Reportable Polychromasia Not Reportable Hypochromasia Not Reportable Poikilocytosis Not Reportable Anisocytosis Not Reportable Microcytosis Not Reportable Macrocytosis Not Reportable Spherocytes Not Reportable Pappenheimer Bodies Not Reportable Sickle Cells Not Reportable Target Cells Not Reportable Tear Drop Cells Not Reportable Ovalocytes Not Reportable Helmet Cells Not Reportable [place] Bodies Not Reportable [place] Rings Not Reportable [place] Cells Not Reportable Bite Cells Not Reportable Crenated Cell Not Reportable Elliptocytes Not Reportable Acanthocytes (Spur) Not Reportable Rouleaux Not Reportable Hemoglobin C Crystals Not Reportable Schistocytes Not Reportable Malaria parasites Not Reportable Marko Bodies Not Reportable Hem Pathologist Commnt No Sodium Potassium Chloride Carbon Dioxide Anion Gap BUN Creatinine Estimated GFR BUN/Creatinine Ratio Glucose Calcium Total Bilirubin AST ALT Alkaline Phosphatase Total Protein Albumin Albumin/Globulin Ratio RBC Folic Acid 927 SOHAIL Screen Positive H SOHAIL Titer 1:320 H SOHAIL Pattern Nucleolar 01/12/18 05:50 WBC RBC Hgb Hct MCV MCH MCHC RDW Plt Count Add Manual Diff Total Counted Seg Neuts % (Manual) Band Neutrophils % Lymphocytes % (Manual) Reactive Lymphs % (Man) Monocytes % (Manual) Eosinophils % (Manual) Basophils % (Manual) Metamyelocytes % Myelocytes % Promyelocytes % Blast Cells % Nucleated RBC % Seg Neutrophils # Man Band Neutrophils # Lymphocytes # (Manual) Abs React Lymphs (Man) Monocytes # (Manual) Eosinophils # (Manual) Basophils # (Manual) Metamyelocytes # Myelocytes # Promyelocytes # Blast Cells # WBC Morphology Hypersegmented Neuts Hyposegmented Neuts Hypogranular Neuts Smudge Cells Toxic Granulation Toxic Vacuolation Dohle Bodies Pelger-Huet Anomaly [place] Rods Platelet Estimate Clumped Platelets Plt Clumps, EDTA Large Platelets Giant Platelets Platelet Satelliting Plt Morphology Comment RBC Morphology Dimorphic RBCs Polychromasia Hypochromasia Poikilocytosis Anisocytosis Microcytosis Macrocytosis Spherocytes Pappenheimer Bodies Sickle Cells Target Cells Tear Drop Cells Ovalocytes Helmet Cells [place] Bodies [place] Rings Hyacinth Cells Bite Cells Crenated Cell Elliptocytes Acanthocytes (Spur) Rouleaux Hemoglobin C Crystals Schistocytes Malaria parasites Marko Bodies Hem Pathologist Commnt Sodium 133 L Potassium 3.7 Chloride 100.5 Carbon Dioxide 19 L Anion Gap 17 BUN 13 Creatinine 0.7 Estimated GFR > 60 BUN/Creatinine Ratio 19 Glucose 101 H Calcium 8.3 L Total Bilirubin 4.10 H AST 58 H ALT 67 H Alkaline Phosphatase 688 H Total Protein 5.5 L Albumin 2.7 L Albumin/Globulin Ratio 1.0 RBC Folic Acid SOHAIL Screen SOHAIL Titer SOHAIL Pattern
--- NOTE | 2018-01-12 19:06 | Hem/Onc Consultation ---
History of Present Illness - Reason for Consult Consult date: 01/12/18 - History of Present Illness dictated awaiting path will d/w gi Past History Past Medical History: atrial fib, diabetes, GERD, heart failure, hypertension Past Surgical History: Other (gastric bypas) Social history: denies: smoking, alcohol abuse, prescription drug abuse Family history: no significant family history Medications and Allergies Allergies Allergy/AdvReac Type Severity Reaction Status Date / Time amoxicillin [Amoxicillin] Allergy Unknown Verified 12/24/17 08:33 NSAIDS (Non-Steroidal Allergy Bleeding Verified 12/24/17 08:33 Anti-Inflamma prednisone Allergy Diarrhea Verified 12/24/17 08:33 Home Medications Medication Instructions Recorded Confirmed Last Taken Type Hydralazine HCl [hydrALAZINE] 100 mg PO TID 09/25/13 12/24/17 01/02/18 History Apixaban [Eliquis] 5 mg PO BID #60 tablet 12/29/17 01/02/18 Rx AtorvaSTATin [Lipitor] 20 mg PO QHS #30 tablet 12/29/17 01/02/18 Rx Bumetanide [Bumex 1 mg tab] 2 mg PO QDAY #30 tablet 12/29/17 01/02/18 Rx Carvedilol [Coreg] 12.5 mg PO BID #60 tablet 12/29/17 01/02/18 Rx Escitalopram [Lexapro] 10 mg PO DAILY #30 tablet 12/29/17 01/02/18 Rx Lisinopril [Zestril TAB] 20 mg PO BID #60 tablet 12/29/17 01/02/18 Rx Ondansetron [Zofran Odt] 4 mg PO Q8H PRN #30 tab.rapdis 12/29/17 01/02/18 Rx Spironolactone [Aldactone] 25 mg PO QDAY #30 tablet 12/29/17 01/02/18 Rx Sucralfate [Carafate] 1 gm PO Q6HR 30 Days oral.liqd 12/29/17 01/07/18 Rx Active Meds: Active Medications Carvedilol (Coreg) 12.5 mg PO BID [facility] Last Admin: 01/12/18 11:17 Dose: 12.5 mg Enoxaparin Sodium (Lovenox) 40 mg SUB-Q QDAY [facility] Last Admin: 01/12/18 12:16 Dose: 40 mg Hydralazine HCl (Apresoline) 10 mg IV Q6HR PRN PRN Reason: Systolic BP greater than 160 Last Admin: 01/12/18 16:19 Dose: 10 mg Hydralazine HCl (Apresoline) 100 mg PO BID [facility] Last Admin: 01/12/18 11:16 Dose: 100 mg Hydromorphone HCl (Dilaudid) 2 mg IV Q4H PRN PRN Reason: Pain , Severe (7-10) Last Admin: 01/12/18 16:15 Dose: 2 mg Sodium Chloride (Nacl 0.9% 1000 Ml) 1,000 mls @ 75 mls/hr IV DIRECT [facility] Last Admin: 01/12/18 03:09 Dose: 75 mls/hr Levofloxacin/Dextrose (Levaquin 750mg/150ml) 750 mg in 150 mls @ 100 mls/hr IV Q24HR [facility] Last Admin: 01/12/18 12:15 Dose: 100 mls/hr Metronidazole (Flagyl 500 Mg/100 Ml) 500 mg in 100 mls @ 100 mls/hr IV Q8HR [facility] Last Admin: 01/12/18 16:16 Dose: 100 mls/hr Lisinopril (Zestril) 20 mg PO BID [facility] Last Admin: 01/12/18 11:17 Dose: 20 mg Metoclopramide HCl (Reglan) 10 mg IV Q8H [facility] Last Admin: 01/12/18 12:14 Dose: 10 mg Ondansetron HCl (Zofran) 4 mg IV Q6H PRN PRN Reason: Nausea And Vomiting Last Admin: 01/11/18 14:34 Dose: 4 mg Pantoprazole Sodium (Protonix) 40 mg PO BID [facility] Last Admin: 01/12/18 11:17 Dose: 40 mg Sucralfate (Carafate) 1 gm PO Q6HR [facility] Last Admin: 01/12/18 12:16 Dose: 1 gm Exam - Constitutional Vitals: Last Vital Signs Temp 99.8 F H 01/12/18 16:13 Pulse 87 01/12/18 16:13 Resp 20 01/12/18 16:13 BP 173/87 01/12/18 16:19 Pulse Ox 93 01/12/18 16:13 Results - Labs lab Results: Laboratory Results - last 24 hr 01/09/18 01/10/18 01/12/18 05:03 10:21 05:50 WBC 10.6 RBC 3.51 L Hgb 8.9 L Hct 28.3 L MCV 80 MCH 25 L MCHC 31 RDW 23.2 H Plt Count 276 Add Manual Diff Complete Total Counted 100 Seg Neuts % (Manual) 79.0 H Band Neutrophils % 0 Lymphocytes % (Manual) 17.0 Reactive Lymphs % (Man) 0 Monocytes % (Manual) 4.0 Eosinophils % (Manual) 0 Basophils % (Manual) 0 Metamyelocytes % 0 Myelocytes % 0 Promyelocytes % 0 Blast Cells % 0 Nucleated RBC % Not Reportable Seg Neutrophils # Man 8.4 H Band Neutrophils # 0.0 Lymphocytes # (Manual) 1.8 Abs React Lymphs (Man) 0.0 Monocytes # (Manual) 0.4 Eosinophils # (Manual) 0.0 Basophils # (Manual) 0.0 Metamyelocytes # 0.0 Myelocytes # 0.0 Promyelocytes # 0.0 Blast Cells # 0.0 WBC Morphology Not Reportable Hypersegmented Neuts Not Reportable Hyposegmented Neuts Not Reportable Hypogranular Neuts Not Reportable Smudge Cells Not Reportable Toxic Granulation Not Reportable Toxic Vacuolation Not Reportable Dohle Bodies Not Reportable Pelger-Huet Anomaly Not Reportable Fermin Rods Not Reportable Platelet Estimate Not Reportable Clumped Platelets Not Reportable Plt Clumps, EDTA Not Reportable Large Platelets Not Reportable Giant Platelets Not Reportable Platelet Satelliting Not Reportable Plt Morphology Comment Not Reportable RBC Morphology Normal Dimorphic RBCs Not Reportable Polychromasia Not Reportable Hypochromasia Not Reportable Poikilocytosis Not Reportable Anisocytosis Not Reportable Microcytosis Not Reportable Macrocytosis Not Reportable Spherocytes Not Reportable Pappenheimer Bodies Not Reportable Sickle Cells Not Reportable Target Cells Not Reportable Tear Drop Cells Not Reportable Ovalocytes Not Reportable Helmet Cells Not Reportable [place] Bodies Not Reportable [place] Rings Not Reportable [place] Cells Not Reportable Bite Cells Not Reportable Crenated Cell Not Reportable Elliptocytes Not Reportable Acanthocytes (Spur) Not Reportable Rouleaux Not Reportable Hemoglobin C Crystals Not Reportable Schistocytes Not Reportable Malaria parasites Not Reportable Marko Bodies Not Reportable Hem Pathologist Commnt No Sodium Potassium Chloride Carbon Dioxide Anion Gap BUN Creatinine Estimated GFR BUN/Creatinine Ratio Glucose Calcium Total Bilirubin AST ALT Alkaline Phosphatase Total Protein Albumin Albumin/Globulin Ratio RBC Folic Acid 927 SOHAIL Screen Positive H SOHAIL Titer 1:320 H SOHAIL Pattern Nucleolar 01/12/18 05:50 WBC RBC Hgb Hct MCV MCH MCHC RDW Plt Count Add Manual Diff Total Counted Seg Neuts % (Manual) Band Neutrophils % Lymphocytes % (Manual) Reactive Lymphs % (Man) Monocytes % (Manual) Eosinophils % (Manual) Basophils % (Manual) Metamyelocytes % Myelocytes % Promyelocytes % Blast Cells % Nucleated RBC % Seg Neutrophils # Man Band Neutrophils # Lymphocytes # (Manual) Abs React Lymphs (Man) Monocytes # (Manual) Eosinophils # (Manual) Basophils # (Manual) Metamyelocytes # Myelocytes # Promyelocytes # Blast Cells # WBC Morphology Hypersegmented Neuts Hyposegmented Neuts Hypogranular Neuts Smudge Cells Toxic Granulation Toxic Vacuolation Dohle Bodies Pelger-Huet Anomaly [place] Rods Platelet Estimate Clumped Platelets Plt Clumps, EDTA Large Platelets Giant Platelets Platelet Satelliting Plt Morphology Comment RBC Morphology Dimorphic RBCs Polychromasia Hypochromasia Poikilocytosis Anisocytosis Microcytosis Macrocytosis Spherocytes Pappenheimer Bodies Sickle Cells Target Cells Tear Drop Cells Ovalocytes Helmet Cells [place] Bodies [place] Rings [place] Cells Bite Cells Crenated Cell Elliptocytes Acanthocytes (Spur) Rouleaux Hemoglobin C Crystals Schistocytes Malaria parasites Marko Bodies Hem Pathologist Commnt Sodium 133 L Potassium 3.7 Chloride 100.5 Carbon Dioxide 19 L Anion Gap 17 BUN 13 Creatinine 0.7 Estimated GFR > 60 BUN/Creatinine Ratio 19 Glucose 101 H Calcium 8.3 L Total Bilirubin 4.10 H AST 58 H ALT 67 H Alkaline Phosphatase 688 H Total Protein 5.5 L Albumin 2.7 L Albumin/Globulin Ratio 1.0 RBC Folic Acid SOHAIL Screen SOHAIL Titer SOHAIL Pattern
[2018-01-13] MEDS: CARAFATE PO SCH ×4 (00:05→17:09)
--- NOTE | 2018-01-13 00:20 | Consultation ---
REFERRING PHYSICIAN: Dr. Becki Ramos. REASON FOR CONSULTATION: GI malignancy. HISTORY OF PRESENT ILLNESS: The patient is a very pleasant female with history of chronic atrial fibrillation, diastolic heart failure, hypertension, gastric bypass in 2002, history of pancreatitis in the past. She also has had history of cervical and ovarian cancer back in 1995 requiring hysterectomy who presented to the hospital with worsening nausea, vomiting in the last few weeks. The patient states over the last year she has had nausea, vomiting and in fact, about 2 years ago, even underwent EGD, which was unremarkable. Because of persistent nausea, vomiting, which was not relieved with any medication, to the point she was not able to take her pills. She was directly admitted to the hospital. Her lab work in the hospital did show evidence of elevated bilirubin along with liver function tests. Her alkaline phosphatase was 887, bilirubin 4.5, AST 200, ALT 193. She also had elevated lipase and amylase. The patient did undergo ultrasound of the abdomen first on 01/06/2018 where she was found to have mild dilatation of the common bile duct and fatty infiltration of the liver. There was persistent wall thickening in the distal stomach and gastric antrum concerning gastritis. She then underwent a CT of the abdomen and pelvis on 01/09/2018 where she was found to have previous surgical changes in the stomach from gastric bypass, but there appeared to be marked gastric antral thickening of the soft tissue or inflammatory infiltration into the mesentery. The enlarged mesenteric lymph nodes were identified. There was right nephrolithiasis which was nonobstructing. The patient underwent EGD on 01/10/2018 and she was found to have moderate to severe inflammation with ulcers and irregular inflamed mucosa extending anastomosis to duodenal site where the biopsies were done. Because of her obstructive jaundice, the patient underwent percutaneous transhepatic cholangiography and percutaneous placement of transhepatic biliary drainage catheter. Her pathology was back on her stomach and duodenal biopsies and although it is preliminary it is consistent with malignant cells, awaiting special stains. Because of diagnosis of malignancy, Hematology consult was called. The patient states that she has had significant abdominal pain. PAST MEDICAL HISTORY: Positive as mentioned in history of present illness of history of cervical cancer and ovarian cancer in the past. FAMILY HISTORY: Positive for ovarian cancer in the mother. No history of breast cancer in the family, but there is history of breast masses in her. The patient has had breast reduction many years ago. SOCIAL HISTORY: Does not smoke or drink. PHYSICAL EXAMINATION: GENERAL: The patient is awake and oriented. HEENT: Unremarkable. CHEST: Clear. BREASTS: Bilateral breasts showed breast reduction. No masses noted. LUNGS: Chest is clear. HEART: Irregularly irregular. ABDOMEN: Slightly distended. There is a right upper quadrant drainage tube with biliary contents in the bag. EXTREMITIES: No clubbing, cyanosis, or edema. ASSESSMENT AND PLAN: 1. Abnormal duodenal mucosa at the site of anastomosis, biopsy showing malignant cells. Awaiting final pathology. 2. Mesenteric lymph nodes. 3. History of ovarian and cervical cancer in the past. RECOMMENDATION AND PLAN: At this time, awaiting final pathology. I will discuss this case with Dr. Pedersen also. Once we have the final pathology will be discussing chemotherapy, etc. I will order CA-125, CA 19-9 and CEA. We will follow. JOB# [id number] SIERRAS/NTS
[2018-01-13] MEDS: DILAUDID IV PRN ×6 (00:34→22:36)
[2018-01-13] MEDS: ZOFRAN IV PRN ×3 (00:35→22:37)
[2018-01-13] MEDS: REGLAN IV SCH ×3 (03:07→18:45)
[2018-01-13] MEDS: FLAGYL 500 MG/100 ML 500 MG/100 ML BAG IV SCH ×3 (05:36→22:26)
[2018-01-13 06:12] LABS: Basophils % (Auto) 0.1 % (0.0-1.8); Hemoglobin 8.5 gm/dl (10.1-14.3); Lymphocytes # (Auto) 0.2 K/mm3 (1.2-5.4); Lymphocytes % (Auto) 1.4 % (13.4-35.0); Mean Corpuscular HGB Conc 32 % (30-34); Mean Corpuscular Hemoglobin 25 pg (28-32); Mean Corpuscular Volume 80 fl (79-97); Monocytes # (Auto) 1.4 K/mm3 (0.0-0.8); Monocytes % (Auto) 11.2 % (0.0-7.3); Platelet Count 265 K/mm3 (140-440); Red Blood Count 3.36 M/mm3 (3.65-5.03)
[2018-01-13 06:13] LABS: Red Cell Distribution Width 23.4 % (13.2-15.2)
[2018-01-13 06:20] LABS: INR 0.96 (0.87-1.13)
[2018-01-13 06:34] LABS: Alanine Aminotransferase 48 units/L (7-56); Albumin 2.5 g/dL (3.9-5); BUN/Creatinine Ratio 20; Blood Urea Nitrogen 14 mg/dL (7-17); Calcium 8.5 mg/dL (8.4-10.2); Hemolysis Index 0
[2018-01-13] MEDS: LEVAQUIN 750MG/150ML 750 MG/150 ML BAG IV SCH (09:29)
[2018-01-13] MEDS: APRESOLINE PO SCH ×2 (09:30→22:26)
[2018-01-13] MEDS: COREG PO SCH ×2 (09:30→22:27)
[2018-01-13] MEDS: ZESTRIL PO SCH ×2 (09:30→22:27)
[2018-01-13] MEDS: PROTONIX PO SCH ×2 (09:30→22:26)
[2018-01-13] MEDS: LOVENOX SUB-Q SCH (11:50)
[2018-01-13] MEDS: NACL 0.9% 1000 ML 1,000 ML IV SCH (13:17)
--- NOTE | 2018-01-13 16:05 | Gastroenterology Progress Note ---
Assessment and Plan GI: pt w/ egd bx's consistent with malignancy, biliary obstruction s/p stent placement - LFT's continue to improve - case discussed w/ Dr. Anderson, final EGD pending - IR (Dr. Carranza) to see later today - if can be stable opt to have outpt f/u [facility] - consider transfer based on progress - no changes, will follow Subjective Date of service: 01/13/18 Principal diagnosis: Abdominla pain with N?V, pancratitis and fatty liver disease Interval history: - pt reports feeling somewhat better Objective - Constitutional Vitals: Temp Pulse Resp BP Pulse Ox 98.7 F 67 18 146/85 93 01/13/18 07:38 01/13/18 09:30 01/13/18 09:53 01/13/18 09:30 01/13/18 07:38 General appearance: no acute distress - EENT Eyes: PERRL - Respiratory Respiratory: bilateral: CTA - Cardiovascular Rhythm: regular Heart Sounds: Present: S1 & S2 - Gastrointestinal General gastrointestinal: Present: soft, non-tender, non-distended - Labs CBC & Chem 7: 01/13/18 05:06 01/13/18 05:06 Labs: Laboratory Results - last 24 hr 01/13/18 01/13/18 01/13/18 05:06 05:06 05:06 WBC 12.2 H RBC 3.36 L Hgb 8.5 L Hct 27.0 L MCV 80 MCH 25 L MCHC 32 RDW 23.4 H Plt Count 265 Lymph % (Auto) 1.4 L [place] % (Auto) 11.2 H Eos % (Auto) 0.0 Baso % (Auto) 0.1 Lymph # 0.2 L [place] # 1.4 H Eos # 0.0 Baso # 0.0 Seg Neutrophils % 87.3 H Seg Neutrophils # 10.6 H PT 13.3 INR 0.96 Sodium 136 L Potassium 3.9 Chloride 100.0 Carbon Dioxide 21 L Anion Gap 19 BUN 14 Creatinine 0.7 Estimated GFR > 60 BUN/Creatinine Ratio 20 Glucose 108 H Calcium 8.5 Total Bilirubin 3.00 H AST 23 ALT 48 Alkaline Phosphatase 519 H Total Protein 5.6 L Albumin 2.5 L Albumin/Globulin Ratio 0.8
[2018-01-13] MEDS ORDERED: NORCO 7.5/325 PO PRN (16:35)
--- NOTE | 2018-01-13 17:15 | Progress Note ---
Assessment and Plan 57-year-old female with obstructive jaundice of unclear etiology. Total bilirubin is trending down. Once it has plateaued, then capping trial can be performed. Given pleuritic chest pain and shoulder pain, I will order a chest x-ray, but I suspect this is secondary to biliary tube placement. Patient will require Powerade or Gatorade and will need to drink enough of this so that it is a one-to-one ratio with bile loss to prevent dehydration and electrolyte loss. Will continue to follow Subjective Date of service: 01/13/18 Principal diagnosis: Abdominla pain with N?V, pancratitis and fatty liver disease Interval history: Has diffuse abdominal pain. Pain partially improved from biliary drain placement, but now has pleuritic pain due to the intercostal location of the biliary tube which is expected. Complains of some shoulder pain. Objective - Constitutional Vitals: Vital Signs - 12hr 01/13/18 01/13/18 01/13/18 05:22 06:37 07:38 Temperature 99.3 F 98.7 F Pulse Rate 66 67 Respiratory 18 20 20 Rate Blood Pressure 146/85 Blood Pressure 158/76 [Left] O2 Sat by Pulse 98 93 Oximetry 01/13/18 01/13/18 01/13/18 09:23 09:30 09:53 Temperature Pulse Rate 67 Respiratory 18 18 Rate Blood Pressure 146/85 Blood Pressure [Left] O2 Sat by Pulse Oximetry 01/13/18 15:41 Temperature 99.6 F Pulse Rate 70 Respiratory 20 Rate Blood Pressure 140/83 Blood Pressure [Left] O2 Sat by Pulse 95 Oximetry General appearance: Present: no acute distress - EENT Eyes: EOM intact ENT: hearing intact - Respiratory Respiratory effort: normal Extremities: normal color - Gastrointestinal General gastrointestinal: Present: tender (diffuse mild abdominal discomfort with more discomfort around the biliary drain), other (normal appearing bile in bag, 300 mL) - Psychiatric Psychiatric: appropriate mood/affect, cooperative - Labs CBC & Chem 7: 01/13/18 05:06 01/13/18 05:06 Labs: Abnormal lab results 01/13/18 01/13/18 Range/Units 05:06 05:06 WBC 12.2 H (4.5-11.0) K/mm3 RBC 3.36 L (3.65-5.03) M/mm3 Hgb 8.5 L (10.1-14.3) gm/dl Hct 27.0 L (30.3-42.9) % MCH 25 L (28-32) pg RDW 23.4 H (13.2-15.2) % Lymph % (Auto) 1.4 L (13.4-35.0) % [place] % (Auto) 11.2 H (0.0-7.3) % Lymph # 0.2 L (1.2-5.4) K/mm3 [place] # 1.4 H (0.0-0.8) K/mm3 Seg Neutrophils % 87.3 H (40.0-70.0) % Seg Neutrophils # 10.6 H (1.8-7.7) K/mm3 Sodium 136 L (137-145) mmol/L Carbon Dioxide 21 L (22-30) mmol/L Glucose 108 H (65-100) mg/dL Total Bilirubin 3.00 H (0.1-1.2) mg/dL Alkaline Phosphatase 519 H (35-129) units/L Total Protein 5.6 L (6.3-8.2) g/dL Albumin 2.5 L (3.9-5) g/dL
--- NOTE | 2018-01-13 17:30 | Progress Note ---
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 Biopsy report following showed malignant cell of unknown origin though irregular not obviously malignant. Hiatial hernia noted" Pt had Lissette-En-Y Gastic bypass in 2002 Continue with clear liquid and IVF, iv protonix and zofran. graded oral feeding commence GI followign Oncologist Dr. Anderson following - Possible gastric neoplasm per CT abdomen and pelvis that was done 01/09/18 with enlarged mesentric lymph nodes Gastric wall thickening for EGD. GI following -Biliary obstruction s/p stent placement 12/14/17 by IR with drainage of bile and improving serum T.bili and Alk Phosph levels To cap drainage when drainage plateaus and transfer to [place] or f/u with GI as out pt. Transminases improving. Alkaline Phosphatse and T. bili stil increasingTotal bili and transaminases- worsening Abdominal US Showed gastric wall thickening CBD dilatation likley secondarry distal obstruction - Anemia of chonic disease - Hypokalemai and hypophosphatemia Supplement further DVT and GI ppx with lovenox and pepcid Subjective Date of service: 01/13/18 Principal diagnosis: Abdominla pain with N?V, pancratitis and fatty liver disease Interval history: Pt seen and examined. Abdominal pain getting better. Nauseated but no vomiting. Had EGD 01/10/18 and stent placement on 01/11/18. still draining bile. No fever or chills Objective - Constitutional Vitals: Vital Signs - 12hr 01/13/18 01/13/18 01/13/18 06:37 07:38 09:23 Temperature 99.3 F 98.7 F Pulse Rate 66 67 Respiratory 20 20 18 Rate Blood Pressure 146/85 Blood Pressure 158/76 [Left] O2 Sat by Pulse 98 93 Oximetry 01/13/18 01/13/18 01/13/18 09:30 09:53 15:41 Temperature 99.6 F Pulse Rate 67 70 Respiratory 18 20 Rate Blood Pressure 146/85 140/83 Blood Pressure [Left] O2 Sat by Pulse 95 Oximetry General appearance: Present: no acute distress, well-nourished - EENT Eyes: PERRL, EOM intact Ears: bilateral: normal - Neck Neck: supple, normal ROM - Respiratory Respiratory effort: normal Respiratory: bilateral: CTA - Cardiovascular Rhythm: regular Heart Sounds: Present: S1 & S2. Absent: gallop, rub Extremities: pulses intact, No edema, normal color, Full ROM - Gastrointestinal General gastrointestinal: Present: soft, non-tender, non-distended, normal bowel sounds - Integumentary Integumentary: clear, warm, dry - Musculoskeletal Musculoskeletal: 1, strength equal bilaterally - Neurologic Neurologic: moves all extremities - Psychiatric Psychiatric: memory intact, appropriate mood/affect, intact judgment & insight - Labs CBC & Chem 7: 01/13/18 05:06 01/13/18 05:06 Labs: Abnormal lab results 01/13/18 01/13/18 Range/Units 05:06 05:06 WBC 12.2 H (4.5-11.0) K/mm3 RBC 3.36 L (3.65-5.03) M/mm3 Hgb 8.5 L (10.1-14.3) gm/dl Hct 27.0 L (30.3-42.9) % MCH 25 L (28-32) pg RDW 23.4 H (13.2-15.2) % Lymph % (Auto) 1.4 L (13.4-35.0) % [place] % (Auto) 11.2 H (0.0-7.3) % Lymph # 0.2 L (1.2-5.4) K/mm3 [place] # 1.4 H (0.0-0.8) K/mm3 Seg Neutrophils % 87.3 H (40.0-70.0) % Seg Neutrophils # 10.6 H (1.8-7.7) K/mm3 Sodium 136 L (137-145) mmol/L Carbon Dioxide 21 L (22-30) mmol/L Glucose 108 H (65-100) mg/dL Total Bilirubin 3.00 H (0.1-1.2) mg/dL Alkaline Phosphatase 519 H (35-129) units/L Total Protein 5.6 L (6.3-8.2) g/dL Albumin 2.5 L (3.9-5) g/dL
--- NOTE | 2018-01-13 20:30 | XRay Report ---
FINAL REPORT EXAM: XR CHEST 1V AP HISTORY: pleuritic pain, likely secondary to biliary interv TECHNIQUE: upright single view chest PRIORS: None. FINDINGS: Cardiac and mediastinal contours are unremarkable. No focal pulmonary infiltrate is identified. No pleural fluid collection seen. Pulmonary vasculature is unremarkable. IMPRESSION: Negative single-view chest
[2018-01-14] MEDS: CARAFATE PO SCH ×5 (00:57→23:44)
[2018-01-14] MEDS: DILAUDID IV PRN ×5 (02:42→23:43)
[2018-01-14] MEDS: REGLAN IV SCH ×2 (02:43→19:11)
[2018-01-14] MEDS: NACL 0.9% 1000 ML 1,000 ML IV SCH (02:54)
[2018-01-14] MEDS: FLAGYL 500 MG/100 ML 500 MG/100 ML BAG IV SCH ×3 (05:55→22:46)
[2018-01-14] MEDS: ZOFRAN IV PRN ×3 (06:39→23:43)
--- NOTE | 2018-01-14 09:01 | Hem/Onc Progress Note ---
Assessment and Plan path adeno- awaiting sp stains limited tissue to process- d/w Dr horner- pathologist. may need more tissue with EUS and bx at [facility] if necessary will add po oxycodone for better pain control Subjective Date of service: 01/14/18 Interval history: Pt c/o pain in the site of tube. q 4 h dilaudid not lasting for q4 Objective - Constitutional Vitals: Last Vital Signs Temp 99.1 F 01/14/18 07:49 Pulse 70 01/14/18 07:49 Resp 20 01/14/18 07:49 BP 137/61 01/14/18 07:49 Pulse Ox 91 01/14/18 07:49 Pain Intensity (0-10): 6/10 General appearance: mild distress Performance status: 3-limited selfcare - Neck Neck: supple - Respiratory Respiratory effort: Positive: normal Respiratory: bilateral: diminished - Cardiovascular Rhythm: regular Extremities: No edema - Gastrointestinal General gastrointestinal: Present: soft, other (biliary drainage tube present)
--- NOTE | 2018-01-14 09:23 | Progress Note ---
Assessment and Plan - Gastric vs biliary malignancy. intrabiliary drain inseted by IP 01/11/18 still draining much - 1050 over the past 24 hrs Oncology consult. Communicated with Dr. Anderson Continue increase fluid and regular diet and IVF, iv protonix and zofran Pain control with narcotics -Biliary obstruction s/p CBD drain with decreasign T. bili Possilbe CA head of pancrease Transminases improving. Alkaline Phosphatse and T. bili decreasing - Anemia of chonic disease - GERD Protonix Avoid NSAIDS DVT and GI ppx with lovenox and pepcid Disposition: To cap biliary drain and d/c home or transfer to [place] per GI Subjective Date of service: 01/14/18 Principal diagnosis: Abdominla pain with N?V, pancratitis and fatty liver disease Interval history: Abdominal pain getting worse. Nauseated but no vomiting. Had EGD 01/10/18 and Stent placement by IP 01/11/18 Objective - Constitutional Vitals: Vital Signs - 12hr 01/13/18 01/13/18 01/13/18 22:00 22:19 22:27 Temperature Pulse Rate 72 76 Respiratory 20 19 Rate Respiratory 18 Rate [Abdomen] Respiratory 18 Rate [Head] Respiratory 18 Rate [Medial Chest] Blood Pressure 145/63 145/63 O2 Sat by Pulse 95 97 Oximetry 01/13/18 01/13/18 01/13/18 22:36 22:56 23:06 Temperature 99.4 F Pulse Rate 78 Respiratory 20 18 20 Rate Respiratory Rate [Abdomen] Respiratory Rate [Head] Respiratory Rate [Medial Chest] Blood Pressure 147/78 O2 Sat by Pulse 92 Oximetry 01/14/18 01/14/18 01/14/18 02:42 03:12 06:39 Temperature Pulse Rate Respiratory 20 18 18 Rate Respiratory Rate [Abdomen] Respiratory Rate [Head] Respiratory Rate [Medial Chest] Blood Pressure O2 Sat by Pulse Oximetry 01/14/18 01/14/18 07:06 07:49 Temperature 99.1 F Pulse Rate 70 Respiratory 18 20 Rate Respiratory Rate [Abdomen] Respiratory Rate [Head] Respiratory Rate [Medial Chest] Blood Pressure 137/61 O2 Sat by Pulse 91 Oximetry General appearance: Present: no acute distress, well-nourished - EENT Eyes: PERRL, EOM intact - Neck Neck: supple, normal ROM - Respiratory Respiratory effort: normal Respiratory: bilateral: CTA - Cardiovascular Rhythm: regular Heart Sounds: Present: S1 & S2. Absent: gallop, rub Extremities: pulses intact, No edema, normal color, Full ROM - Gastrointestinal General gastrointestinal: Present: soft, non-tender, non-distended, normal bowel sounds, other (Drain from the CBD still producin much- 1050ml past 24 hr) - Integumentary Integumentary: clear, warm, dry - Musculoskeletal Musculoskeletal: 1, strength equal bilaterally - Neurologic Neurologic: moves all extremities - Psychiatric Psychiatric: memory intact, appropriate mood/affect, intact judgment & insight - Labs CBC & Chem 7: 01/17/18 05:29 03 05:29
[2018-01-14] MEDS: LEVAQUIN 750MG/150ML 750 MG/150 ML BAG IV SCH (09:29)
[2018-01-14] MEDS: LOVENOX SUB-Q SCH (09:29)
[2018-01-14] MEDS: COREG PO SCH ×2 (09:30→22:45)
[2018-01-14] MEDS: APRESOLINE PO SCH ×2 (09:30→22:44)
[2018-01-14] MEDS: ROXICODONE PO PRN ×2 (09:31→14:12)
[2018-01-14] MEDS: PROTONIX PO SCH ×2 (09:32→22:44)
[2018-01-14] MEDS: ZESTRIL PO SCH ×2 (09:32→22:44)
[2018-01-14 11:37] LABS: Alanine Aminotransferase 32 units/L (7-56); Albumin 2.6 g/dL (3.9-5); BUN/Creatinine Ratio 19; Blood Urea Nitrogen 15 mg/dL (7-17); Calcium 8.7 mg/dL (8.4-10.2); Hemolysis Index 1
--- NOTE | 2018-01-14 15:56 | Gastroenterology Progress Note ---
Assessment and Plan GI: pt biliary stricture s/p PTC, h/o gastric bypass s/p egd w/ malignancy unclear etiology noted - Onc input noted - LFT's improving - probably d/c w/ follow up [place] when cleared by IR and Oncology - no changes at this time, will follow Subjective Date of service: 01/14/18 Principal diagnosis: Abdominla pain with N?V, pancratitis and fatty liver disease Interval history: - reports feeling better, denies specific GI complaints Objective - Constitutional Vitals: Temp Pulse Resp BP Pulse Ox 99.1 F 70 18 137/61 91 01/14/18 07:49 01/14/18 09:32 01/14/18 14:12 01/14/18 09:32 01/14/18 07:49 General appearance: no acute distress - EENT Eyes: PERRL - Respiratory Respiratory: bilateral: CTA - Cardiovascular Rhythm: regular Heart Sounds: Present: S1 & S2 - Gastrointestinal General gastrointestinal: Present: soft, non-tender, non-distended - Labs CBC & Chem 7: 01/13/18 05:06 01/14/18 10:17 Labs: Laboratory Results - last 24 hr 01/14/18 10:17 Sodium 137 Potassium 4.1 Chloride 101.9 Carbon Dioxide 20 L Anion Gap 19 BUN 15 Creatinine 0.8 Estimated GFR > 60 BUN/Creatinine Ratio 19 Glucose 139 H Calcium 8.7 Total Bilirubin 2.40 H AST 11 ALT 32 Alkaline Phosphatase 400 H Total Protein 5.8 L Albumin 2.6 L Albumin/Globulin Ratio 0.8
[2018-01-14 16:48] LABS: Basophils % (Auto) 0.2 % (0.0-1.8); Eosinophils % (Auto) 0.1 % (0.0-4.3); Hematocrit 27.9 % (30.3-42.9); Hemoglobin 8.6 gm/dl (10.1-14.3); Lymphocytes # (Auto) 0.1 K/mm3 (1.2-5.4); Lymphocytes % (Auto) 1.2 % (13.4-35.0); Mean Corpuscular HGB Conc 31 % (30-34); Mean Corpuscular Volume 82 fl (79-97); Monocytes # (Auto) 1.4 K/mm3 (0.0-0.8); Monocytes % (Auto) 11.6 % (0.0-7.3); Platelet Count 316 K/mm3 (140-440)
[2018-01-14 16:57] LABS: Mean Corpuscular Hemoglobin 25 pg (28-32); Red Cell Distribution Width 23.9 % (13.2-15.2)
[2018-01-14 16:59] LABS: Mean Platelet Volume 8.2 fl (6-12)
--- NOTE | 2018-01-14 17:09 | Progress Note ---
Assessment and Plan 57-year-old female with obstructive jaundice of unclear etiology. Total bilirubin is still trending down. Once it has plateaued, then capping trial can be performed. Chest x-ray negative. No pleural process or biliary leakage into pleural space. Leukocytosis trending up, concerning for possible low-grade cholangitis given diffuse abdominal pain. Discussed with Dr. Ramos, and he requested I contact ID which I did. Bile cultures ordered. Patient will require Powerade or Gatorade and will need to drink enough of this so that it is a one-to-one ratio with bile loss to prevent dehydration and electrolyte loss. Will followup on wednesday. Can consider transfer to [place]. Subjective Date of service: 01/14/18 Principal diagnosis: Abdominla pain with N?V, pancratitis and fatty liver disease Interval history: Improved diffuse abdominal pain. Has pain with breathing which is expected due to intercostal location of the biliary tube which is expected. Objective - Constitutional Vitals: Vital Signs - 12hr 01/14/18 01/14/18 01/14/18 06:39 07:06 07:49 Temperature 99.1 F Pulse Rate 70 Respiratory 18 18 20 Rate Blood Pressure 137/61 O2 Sat by Pulse 91 Oximetry 01/14/18 01/14/18 01/14/18 09:30 09:32 14:12 Temperature Pulse Rate 70 70 Respiratory 18 Rate Blood Pressure 137/61 137/61 O2 Sat by Pulse Oximetry 01/14/18 15:56 Temperature Pulse Rate Respiratory 18 Rate Blood Pressure O2 Sat by Pulse Oximetry General appearance: Present: no acute distress - EENT Eyes: EOM intact ENT: hearing intact - Respiratory Respiratory effort: normal - Gastrointestinal General gastrointestinal: Present: tender (diffuse mild) - Psychiatric Psychiatric: appropriate mood/affect, cooperative - Labs CBC & Chem 7: 01/14/18 16:19 01/14/18 10:17 Labs: Abnormal lab results 01/14/18 01/14/18 Range/Units 10:17 16:19 WBC 12.1 H (4.5-11.0) K/mm3 RBC 3.40 L (3.65-5.03) M/mm3 Hgb 8.6 L (10.1-14.3) gm/dl Hct 27.9 L (30.3-42.9) % MCH 25 L (28-32) pg RDW 23.9 H (13.2-15.2) % Lymph % (Auto) 1.2 L (13.4-35.0) % [place] % (Auto) 11.6 H (0.0-7.3) % Lymph # 0.1 L (1.2-5.4) K/mm3 [place] # 1.4 H (0.0-0.8) K/mm3 Seg Neutrophils % 86.9 H (40.0-70.0) % Seg Neutrophils # 10.5 H (1.8-7.7) K/mm3 Carbon Dioxide 20 L (22-30) mmol/L Glucose 139 H (65-100) mg/dL Total Bilirubin 2.40 H (0.1-1.2) mg/dL Alkaline Phosphatase 400 H (35-129) units/L Total Protein 5.8 L (6.3-8.2) g/dL Albumin 2.6 L (3.9-5) g/dL - Imaging and cardiology Chest x-ray: report reviewed, image reviewed
[2018-01-15] MEDS: ROXICODONE PO PRN ×3 (00:54→15:17)
[2018-01-15] MEDS: DILAUDID IV PRN ×5 (03:36→22:45)
[2018-01-15] MEDS: FLAGYL 500 MG/100 ML 500 MG/100 ML BAG IV SCH ×2 (03:38→05:39)
[2018-01-15] MEDS: REGLAN IV SCH ×4 (04:00→22:45)
[2018-01-15] MEDS: NACL 0.9% 1000 ML 1,000 ML IV SCH ×2 (04:18→19:42)
[2018-01-15] MEDS: CARAFATE PO SCH ×3 (05:39→18:08)
[2018-01-15 06:33] LABS: Basophils % (Auto) 0.1 % (0.0-1.8); Eosinophils % (Auto) 0.3 % (0.0-4.3); Hematocrit 26.2 % (30.3-42.9); Hemoglobin 8.5 gm/dl (10.1-14.3); Lymphocytes # (Auto) 0.2 K/mm3 (1.2-5.4); Lymphocytes % (Auto) 1.8 % (13.4-35.0); Mean Corpuscular HGB Conc 32 % (30-34); Mean Corpuscular Hemoglobin 26 pg (28-32); Mean Corpuscular Volume 81 fl (79-97); Monocytes # (Auto) 1.2 K/mm3 (0.0-0.8); Monocytes % (Auto) 11.1 % (0.0-7.3); Platelet Count 297 K/mm3 (140-440); Red Blood Count 3.24 M/mm3 (3.65-5.03)
[2018-01-15 06:35] LABS: Red Cell Distribution Width 23.8 % (13.2-15.2)
[2018-01-15 06:43] LABS: INR 1.09 (0.87-1.13)
[2018-01-15 06:57] LABS: Alanine Aminotransferase 23 units/L (7-56); Albumin 2.2 g/dL (3.9-5); BUN/Creatinine Ratio 17; Blood Urea Nitrogen 12 mg/dL (7-17); Calcium 8.3 mg/dL (8.4-10.2); Hemolysis Index 6
[2018-01-15] MEDS: PROTONIX PO SCH (09:06)
[2018-01-15] MEDS: APRESOLINE PO SCH ×2 (09:06→22:37)
[2018-01-15] MEDS: ZESTRIL PO SCH ×2 (09:06→22:37)
[2018-01-15] MEDS: COREG PO SCH ×2 (09:07→22:36)
[2018-01-15] MEDS: LOVENOX SUB-Q SCH (09:08)
--- NOTE | 2018-01-15 10:34 | Progress Note ---
Assessment and Plan Patient with significant upper abdominal pain. Will obtain a contrasted CT of the abdomen and pelvis to evaluate. Additionally, the patient's pain is well- controlled on oral narcotics. We will increase her dosage. Subjective Date of service: 01/15/18 Principal diagnosis: Abdominla pain with N?V, pancratitis and fatty liver disease Interval history: Patient status post placement of her continuous biliary drain. White count trending down. Patient still complains of significant upper abdominal pain. Objective - Constitutional Vitals: Vital Signs - 12hr 01/15/18 01/15/18 01/15/18 00:54 01:54 03:36 Temperature Pulse Rate Respiratory 22 22 22 Rate Blood Pressure O2 Sat by Pulse Oximetry 01/15/18 01/15/18 01/15/18 04:06 07:40 09:06 Temperature 99.3 F Pulse Rate 72 72 Respiratory 20 16 Rate Blood Pressure 162/82 162/82 O2 Sat by Pulse 98 Oximetry 01/15/18 09:07 Temperature Pulse Rate 72 Respiratory Rate Blood Pressure 162/82 O2 Sat by Pulse Oximetry General appearance: Present: no acute distress, obese - EENT Eyes: PERRL, EOM intact ENT: hearing intact - Neck Neck: supple - Respiratory Respiratory effort: normal - Breasts Breasts: deferred - Gastrointestinal General gastrointestinal: Present: non-tender, other (drain) - Genitourinary Female genitourinary: deferred - Integumentary Integumentary: clear - Psychiatric Psychiatric: appropriate mood/affect, cooperative - Labs CBC & Chem 7: 01/15/18 06:05 01/15/18 06:05 Labs: Abnormal lab results 01/12/18 01/14/18 01/14/18 Range/Units 18:52 10:17 16:19 WBC 12.1 H (4.5-11.0) K/mm3 RBC 3.40 L (3.65-5.03) M/mm3 Hgb 8.6 L (10.1-14.3) gm/dl Hct 27.9 L (30.3-42.9) % MCH 25 L (28-32) pg RDW 23.9 H (13.2-15.2) % Lymph % (Auto) 1.2 L (13.4-35.0) % [place] % (Auto) 11.6 H (0.0-7.3) % Lymph # 0.1 L (1.2-5.4) K/mm3 [place] # 1.4 H (0.0-0.8) K/mm3 Seg Neutrophils % 86.9 H (40.0-70.0) % Seg Neutrophils # 10.5 H (1.8-7.7) K/mm3 Sodium (137-145) mmol/L Carbon Dioxide 20 L (22-30) mmol/L Glucose 139 H (65-100) mg/dL Calcium (8.4-10.2) mg/dL Total Bilirubin 2.40 H (0.1-1.2) mg/dL Alkaline Phosphatase 400 H (35-129) units/L Total Protein 5.8 L (6.3-8.2) g/dL Albumin 2.6 L (3.9-5) g/dL [place] 125 Antigen 58 H (<35) U/mL 01/15/18 01/15/18 Range/Units 06:05 06:05 WBC (4.5-11.0) K/mm3 RBC 3.24 L (3.65-5.03) M/mm3 Hgb 8.5 L (10.1-14.3) gm/dl Hct 26.2 L (30.3-42.9) % MCH 26 L (28-32) pg RDW 23.8 H (13.2-15.2) % Lymph % (Auto) 1.8 L (13.4-35.0) % [place] % (Auto) 11.1 H (0.0-7.3) % Lymph # 0.2 L (1.2-5.4) K/mm3 [place] # 1.2 H (0.0-0.8) K/mm3 Seg Neutrophils % 86.7 H (40.0-70.0) % Seg Neutrophils # 9.4 H (1.8-7.7) K/mm3 Sodium 136 L (137-145) mmol/L Carbon Dioxide 19 L (22-30) mmol/L Glucose 109 H (65-100) mg/dL Calcium 8.3 L (8.4-10.2) mg/dL Total Bilirubin 1.90 H (0.1-1.2) mg/dL Alkaline Phosphatase 333 H (35-129) units/L Total Protein 5.3 L (6.3-8.2) g/dL Albumin 2.2 L (3.9-5) g/dL [place] 125 Antigen (<35) U/mL
[2018-01-15] MEDS ORDERED: NACL 0.9% 1000 ML 1,000 ML ONE (10:44)
--- NOTE | 2018-01-15 12:22 | Progress Note ---
Assessment and Plan - Patient Problems (1) Chronic back pain Current Visit: No Status: Acute Plan to address problem: Adjust current pain medication dose and increase frequency. Continue anti- emetics (2) Intractable nausea and vomiting Current Visit: No Status: Acute Qualifiers: Vomiting type: unspecified Qualified Code(s): R11.2 - Nausea with vomiting , unspecified Plan to address problem: Continue IV hydration, encourage oral fluid intake antiemetics as ordered (3) S/P laparoscopic cholecystectomy Current Visit: No Status: Acute Plan to address problem: Awaiting CT with oral contrast as ordered by gastroneurologist Subjective Date of service: 01/15/18 Principal diagnosis: Abdominla pain with N?V, pancratitis and fatty liver disease Interval history: Covering Dr. Dr. Ramos Patient seen and examined chart reviewed, patient complaining of pain in the right side of the abdomen around the abdomen catheter , denied any fever and no chills, appetite remains poor only able to tolerate liquid diet for now denied any difficulty swallowing. Objective - Exam Narrative Exam: GENERAL: Acutely ill-looking, uncomfortable due to pain HEENT: Moderately , jaundiced no cyanosis NECK: [No JVD, no thyroid enlargement and no lymphadenopathy.] CHEST/LUNGS: [Good air exchange bilaterally, no wheeze, no rales and no rhonchi. ] [No chest wall tenderness, percussion is normal, symmetrical chest wall.] HEART/CARDIOVASCULAR: [Regular rate and rhythm, S1 and S2 only, no murmur.] ABDOMEN: [Abdomen is soft, uniformly distended, tenderness in the right lumbar region minimal guarding posteriorly rebound tenderness. SKIN: [Warm and dry, no rash.] NEURO: [Awake, alert, oriented x3, speech normal. Power 5/5 in all the extremities.] EXTREMITIES: [No pedal edema, good peripheral pulses, no finger or toe clubbing. ] - Constitutional Vitals: Vital Signs - 12hr 01/15/18 01/15/18 01/15/18 00:54 01:54 03:36 Temperature Pulse Rate Respiratory 22 22 22 Rate Blood Pressure O2 Sat by Pulse Oximetry 01/15/18 01/15/18 01/15/18 04:06 07:40 09:06 Temperature 99.3 F Pulse Rate 72 72 Respiratory 20 16 Rate Blood Pressure 162/82 162/82 O2 Sat by Pulse 98 Oximetry 01/15/18 09:07 Temperature Pulse Rate 72 Respiratory Rate Blood Pressure 162/82 O2 Sat by Pulse Oximetry - Labs CBC & Chem 7: 01/15/18 06:05 01/15/18 06:05 Labs: Abnormal lab results 01/12/18 01/14/18 01/15/18 Range/Units 18:52 16:19 06:05 WBC 12.1 H (4.5-11.0) K/mm3 RBC 3.40 L 3.24 L (3.65-5.03) M/mm3 Hgb 8.6 L 8.5 L (10.1-14.3) gm/dl Hct 27.9 L 26.2 L (30.3-42.9) % MCH 25 L 26 L (28-32) pg RDW 23.9 H 23.8 H (13.2-15.2) % Lymph % (Auto) 1.2 L 1.8 L (13.4-35.0) % [place] % (Auto) 11.6 H 11.1 H (0.0-7.3) % Lymph # 0.1 L 0.2 L (1.2-5.4) K/mm3 [place] # 1.4 H 1.2 H (0.0-0.8) K/mm3 Seg Neutrophils % 86.9 H 86.7 H (40.0-70.0) % Seg Neutrophils # 10.5 H 9.4 H (1.8-7.7) K/mm3 Sodium (137-145) mmol/L Carbon Dioxide (22-30) mmol/L Glucose (65-100) mg/dL Calcium (8.4-10.2) mg/dL Total Bilirubin (0.1-1.2) mg/dL Alkaline Phosphatase (35-129) units/L Total Protein (6.3-8.2) g/dL Albumin (3.9-5) g/dL [place] 125 Antigen 58 H (<35) U/mL 01/15/18 Range/Units 06:05 WBC (4.5-11.0) K/mm3 RBC (3.65-5.03) M/mm3 Hgb (10.1-14.3) gm/dl Hct (30.3-42.9) % MCH (28-32) pg RDW (13.2-15.2) % Lymph % (Auto) (13.4-35.0) % [place] % (Auto) (0.0-7.3) % Lymph # (1.2-5.4) K/mm3 [place] # (0.0-0.8) K/mm3 Seg Neutrophils % (40.0-70.0) % Seg Neutrophils # (1.8-7.7) K/mm3 Sodium 136 L (137-145) mmol/L Carbon Dioxide 19 L (22-30) mmol/L Glucose 109 H (65-100) mg/dL Calcium 8.3 L (8.4-10.2) mg/dL Total Bilirubin 1.90 H (0.1-1.2) mg/dL Alkaline Phosphatase 333 H (35-129) units/L Total Protein 5.3 L (6.3-8.2) g/dL Albumin 2.2 L (3.9-5) g/dL [place] 125 Antigen (<35) U/mL
--- NOTE | 2018-01-15 15:28 | Gastroenterology Progress Note ---
Assessment and Plan - Patient Problems (1) Malignant biliary obstruction Current Visit: Yes Status: Acute Plan to address problem: - Unclear if gastric or small bowel cancer causing obstruction, or pancreas/ biliary source eroding in to gastric area. - Agree with current Onco workup. - Has been referred to Dr Henson at [place] for EUS/?bypass surgery. - OK to clamp biliary drain and send home per our service (I have sent a message to IR). Subjective Date of service: 01/15/18 Principal diagnosis: Malignant biliary obstruction Interval history: The patient has some pain at the biliary drain site, but no change, and admits her urine is much less orange. She has had no fevers and chills, and is tolerating her diet so far. Anxious for next step (consult at [place]/likely EUS) . Objective - Constitutional Vitals: Temp Pulse Resp BP Pulse Ox 99.6 F 67 14 131/62 97 01/15/18 14:28 01/15/18 14:28 01/15/18 14:28 01/15/18 14:28 01/15/18 14:28 General appearance: no acute distress - EENT Eyes: PERRL, scleral icterus - Respiratory Respiratory effort: normal Respiratory: bilateral: CTA - Cardiovascular Rhythm: regular Heart Sounds: Present: S1 & S2 - Gastrointestinal General gastrointestinal: Present: soft, tender, non-distended, other (PTC drain with bag/yellow bile present) - Labs CBC & Chem 7: 01/15/18 06:05 01/15/18 06:05 Labs: Laboratory Results - last 24 hr 01/12/18 01/14/18 01/15/18 18:52 16:19 06:05 WBC 12.1 H 10.8 RBC 3.40 L 3.24 L Hgb 8.6 L 8.5 L Hct 27.9 L 26.2 L MCV 82 81 MCH 25 L 26 L MCHC 31 32 RDW 23.9 H 23.8 H Plt Count 316 297 Lymph % (Auto) 1.2 L 1.8 L [place] % (Auto) 11.6 H 11.1 H Eos % (Auto) 0.1 0.3 Baso % (Auto) 0.2 0.1 Lymph # 0.1 L 0.2 L [place] # 1.4 H 1.2 H Eos # 0.0 0.0 Baso # 0.0 0.0 Seg Neutrophils % 86.9 H 86.7 H Seg Neutrophils # 10.5 H 9.4 H PT INR Sodium Potassium Chloride Carbon Dioxide Anion Gap BUN Creatinine Estimated GFR BUN/Creatinine Ratio Glucose Calcium Total Bilirubin AST ALT Alkaline Phosphatase Total Protein Albumin Albumin/Globulin Ratio CA 125 Antigen 58 H 01/15/18 01/15/18 06:05 06:05 WBC RBC Hgb Hct MCV MCH MCHC RDW Plt Count Lymph % (Auto) [place] % (Auto) Eos % (Auto) Baso % (Auto) Lymph # [place] # Eos # Baso # Seg Neutrophils % Seg Neutrophils # PT 14.7 INR 1.09 Sodium 136 L Potassium 3.9 Chloride 102.1 Carbon Dioxide 19 L Anion Gap 19 BUN 12 Creatinine 0.7 Estimated GFR > 60 BUN/Creatinine Ratio 17 Glucose 109 H Calcium 8.3 L Total Bilirubin 1.90 H AST 9 ALT 23 Alkaline Phosphatase 333 H Total Protein 5.3 L Albumin 2.2 L Albumin/Globulin Ratio 0.7 CA 125 Antigen
--- NOTE | 2018-01-15 16:20 | Cat Scan Report ---
FINAL REPORT PROCEDURE: CT ABDOMEN PELVIS W CON TECHNIQUE: Computerized axial tomography of the abdomen and pelvis was performed after the IV injection of iodinated nonionic contrast. HISTORY: abdominal pain COMPARISON: Prior CT scan abdomen and pelvis 12/25/2017 FINDINGS: Lower Lung noel: Small amount of dependent atelectasis visualized. There appear to be a few calcified granulomas in the lung bases. Calcifications are visualized in the coronary arteries indicating atherosclerotic disease. Heart is enlarged. Upper Abdomen: Since the prior exam a percutaneous internal external biliary drain is been placed. The catheter projects through the liver into the biliary system and into the region of the 3rd portion of the duodenum. The liver showed no focal abnormality. The intrahepatic ducts do not appear to be distended. Minimal ascites collected along the edges of the liver. The right adrenal gland is unremarkable. Nodular densities again visualized in the left adrenal gland without interval change measuring approximately 1.7 x 1.6 centimeter. Postsurgical changes are again seen involving the stomach. A suture line appears to be in place. The spleen does not appear to be enlarged. The lynch of the stomach appear diffusely thickened. This was seen on the prior study. On axial image 39 series 102 there appears to be a asymmetric density in the lumen of the left side of the stomach measuring 2.2 x 3.0 centimeters. I cannot exclude large polyp or mass. On axial image 63 series 102 there is gross irregularity of the anterior surface of the stomach extending into the adjacent mesentery. This extends over approximately 3.6 x 4.9 centimeters. The head of the pancreas appears mildly enlarged. The fat plane between the head of the pancreas and stomach is poorly defined. This could be related to acute inflammatory change from pancreatitis versus a mass. Small amount of ascites is seen collected along edge of the spleen with some fluid collecting in the left and right pericolonic gutters. There is moderate subcutaneous edema throughout the abdomen and pelvis laterally. Kidneys, Ureters and Urinary bladder: There appear to be several small, subcentimeter renal cortical cysts. There is a fat-density nodule measuring 1.2 centimeter posterior medial aspect of the right kidney suggesting a lipoma or small angiomyolipoma. No hydronephrosis visualized. There is a nonobstructing calculus in the collecting system of the right kidney. This has decreased in size compared to the prior study. This now measures 4.3 millimeters. No other renal calculi are visualized. Retroperitoneum: Atherosclerotic changes are seen in the abdominal aorta. No aneurysm is visualized. Nonspecific subcentimeter lymph nodes are seen in the retroperitoneum. No pathologically enlarged lymph nodes are identified. Bowel: Additional postsurgical changes are seen in a loop of small bowel in the left upper quadrant. A suture line appears to be present without obstruction. There is diffuse wall thickening seen in the anus and rectum visualized on images 140 through image 158 suggesting a nonspecific colitis. This could represent an infectious colitis. I cannot exclude inflammatory bowel disease or malignancy. Reproductive organs: Uterus appears to be surgically absent. No abnormal adnexal masses are identified. Other: No acute bony abnormalities are identified. Electronic stimulating device implanted in the left side of the buttocks with electronic stimulating lead projecting through the left side of the sacrum. IMPRESSION: Interval placement percutaneous internal external biliary drain as described above. No evidence of biliary distention on today's study. No discrete liver lesions are identified. There is a stable indeterminate nodule in the left adrenal gland. This could represent adrenal adenoma although other masses cannot be excluded. If clinically indicated dynamic contrast-enhanced CT scan or MRI of the adrenal glands could be obtained for further characterization. Postsurgical changes of the stomach visualized. Suture lines are visualized. The lynch are markedly irregularly thickened including the left side of the stomach with a possible mass in the lumen of the stomach and gross irregularity of the surface of the right side of the stomach anteriorly. Severe gastritis could present this manner. I cannot exclude primary or metastatic malignancy in the stomach. The fat plane between the pancreatic head and stomach is poorly defined. This could be from inflammatory change. I cannot exclude a small mass in the pancreatic head. This has not changed significantly. Surgical changes also seen in loops of small bowel left side of the abdomen. Small amount of ascites present. Interval development of diffuse body wall edema. Dependent atelectasis seen in both lung bases with small calcified granulomas. Atherosclerosis coronary arteries. Prior hysterectomy. Small renal cortical cyst suspected. Small lipoma or angiomyolipoma of the right kidney visualized as described. Diffuse wall thickening seen in is and distal rectum as described suggesting a nonspecific colitis. Wall this could represent malignancy this appears more prominent than the last exam performed 12/25/2017 therefore infectious colitis more likely.
--- NOTE | 2018-01-15 17:55 | Hem/Onc Progress Note ---
Assessment and Plan - Patient Problems (1) Malignant biliary obstruction Current Visit: Yes Status: Acute Plan to address problem: Plan is to transfer to [place]. Will follow. Subjective Date of service: 01/15/18 Interval history: No new complains. Objective - Constitutional Vitals: Last Vital Signs Temp 99.6 F 01/15/18 14:28 Pulse 67 01/15/18 14:28 Resp 14 01/15/18 14:28 BP 131/62 01/15/18 14:28 Pulse Ox 97 01/15/18 14:28 - EENT Eyes: PERRL ENT: hearing intact Lymph node exam: negative cervical - Respiratory Respiratory effort: Positive: normal Respiratory: bilateral: CTA - Labs Lab Results: Laboratory Results - last 24 hr 01/12/18 01/15/18 01/15/18 18:52 06:05 06:05 WBC 10.8 RBC 3.24 L Hgb 8.5 L Hct 26.2 L MCV 81 MCH 26 L MCHC 32 RDW 23.8 H Plt Count 297 Lymph % (Auto) 1.8 L [place] % (Auto) 11.1 H Eos % (Auto) 0.3 Baso % (Auto) 0.1 Lymph # 0.2 L [place] # 1.2 H Eos # 0.0 Baso # 0.0 Seg Neutrophils % 86.7 H Seg Neutrophils # 9.4 H PT 14.7 INR 1.09 Sodium Potassium Chloride Carbon Dioxide Anion Gap BUN Creatinine Estimated GFR BUN/Creatinine Ratio Glucose Calcium Total Bilirubin AST ALT Alkaline Phosphatase Total Protein Albumin Albumin/Globulin Ratio CA 125 Antigen 58 H 01/15/18 06:05 WBC RBC Hgb Hct MCV MCH MCHC RDW Plt Count Lymph % (Auto) [place] % (Auto) Eos % (Auto) Baso % (Auto) Lymph # [place] # Eos # Baso # Seg Neutrophils % Seg Neutrophils # PT INR Sodium 136 L Potassium 3.9 Chloride 102.1 Carbon Dioxide 19 L Anion Gap 19 BUN 12 Creatinine 0.7 Estimated GFR > 60 BUN/Creatinine Ratio 17 Glucose 109 H Calcium 8.3 L Total Bilirubin 1.90 H AST 9 ALT 23 Alkaline Phosphatase 333 H Total Protein 5.3 L Albumin 2.2 L Albumin/Globulin Ratio 0.7 CA 125 Antigen
[2018-01-16] MEDS: CARAFATE PO SCH ×4 (00:53→19:01)
[2018-01-16] MEDS: DILAUDID IV PRN ×5 (03:49→21:50)
[2018-01-16] MEDS: REGLAN IV SCH ×3 (03:50→21:28)
[2018-01-16 07:45] LABS: Basophils % (Auto) 0.2 % (0.0-1.8); Eosinophils # (Auto) 0.1 K/mm3 (0.0-0.4); Eosinophils % (Auto) 0.5 % (0.0-4.3); Hematocrit 27.4 % (30.3-42.9); Hemoglobin 8.5 gm/dl (10.1-14.3); Lymphocytes # (Auto) 0.2 K/mm3 (1.2-5.4); Lymphocytes % (Auto) 1.6 % (13.4-35.0); Mean Corpuscular HGB Conc 31 % (30-34); Mean Corpuscular Volume 82 fl (79-97); Monocytes # (Auto) 1.2 K/mm3 (0.0-0.8); Monocytes % (Auto) 10.7 % (0.0-7.3); Platelet Count 316 K/mm3 (140-440); Red Blood Count 3.34 M/mm3 (3.65-5.03)
[2018-01-16 08:03] LABS: Alanine Aminotransferase 17 units/L (7-56); Albumin 2.3 g/dL (3.9-5); BUN/Creatinine Ratio 16; Blood Urea Nitrogen 11 mg/dL (7-17); Calcium 8.3 mg/dL (8.4-10.2); Hemolysis Index 9
[2018-01-16 08:04] LABS: Mean Corpuscular Hemoglobin 26 pg (28-32); Red Cell Distribution Width 24.4 % (13.2-15.2)
--- NOTE | 2018-01-16 10:35 | Progress Note ---
Assessment and Plan Biliary tube capped. Would recheck total bilirubin tomorrow. If stable, patient may be transferred with drain capped. Subjective Date of service: 01/16/18 Principal diagnosis: Malignant biliary obstruction Interval history: But no significant complaints of abdominal pain, her pain is well-controlled. Biliary tube with adequate drainage. Objective - Constitutional Vitals: Vital Signs - 12hr 01/15/18 01/15/18 01/16/18 22:36 22:37 07:20 Temperature 98.6 F Pulse Rate 65 65 55 L Respiratory 16 Rate Blood Pressure 158/81 158/81 134/67 O2 Sat by Pulse 97 Oximetry General appearance: Present: no acute distress - EENT Eyes: PERRL ENT: hearing intact - Neck Neck: supple, normal ROM - Respiratory Respiratory effort: normal - Breasts Breasts: deferred - Gastrointestinal General gastrointestinal: Present: soft, other (internal external drain) Rectal Exam: deferred - Genitourinary Female genitourinary: deferred - Psychiatric Psychiatric: appropriate mood/affect, cooperative - Labs CBC & Chem 7: 01/16/18 06:20 01/16/18 06:20 Labs: Abnormal lab results 01/12/18 01/16/18 01/16/18 Range/Units 18:52 06:20 06:20 WBC 11.4 H (4.5-11.0) K/mm3 RBC 3.34 L (3.65-5.03) M/mm3 Hgb 8.5 L (10.1-14.3) gm/dl Hct 27.4 L (30.3-42.9) % MCH 26 L (28-32) pg RDW 24.4 H (13.2-15.2) % Lymph % (Auto) 1.6 L (13.4-35.0) % [place] % (Auto) 10.7 H (0.0-7.3) % Lymph # 0.2 L (1.2-5.4) K/mm3 [place] # 1.2 H (0.0-0.8) K/mm3 Seg Neutrophils % 87.0 H (40.0-70.0) % Seg Neutrophils # 9.9 H (1.8-7.7) K/mm3 Sodium 135 L (137-145) mmol/L Carbon Dioxide 20 L (22-30) mmol/L Glucose 112 H (65-100) mg/dL Calcium 8.3 L (8.4-10.2) mg/dL Total Bilirubin 1.70 H (0.1-1.2) mg/dL Alkaline Phosphatase 295 H (35-129) units/L Total Protein 5.3 L (6.3-8.2) g/dL Albumin 2.3 L (3.9-5) g/dL CA 19-9 Antigen 86 H (<34) U/mL
[2018-01-16] MEDS: NACL 0.9% 1000 ML 1,000 ML IV SCH (11:21)
[2018-01-16] MEDS: APRESOLINE PO SCH ×2 (11:22→22:00)
[2018-01-16] MEDS: PROTONIX PO SCH (11:23)
[2018-01-16] MEDS: LOVENOX SUB-Q SCH (11:23)
[2018-01-16] MEDS: COREG PO SCH ×2 (11:23→22:00)
[2018-01-16] MEDS: ZESTRIL PO SCH ×2 (11:24→22:00)
--- NOTE | 2018-01-16 12:11 | Gastroenterology Progress Note ---
Assessment and Plan - Patient Problems (1) Malignant biliary obstruction Current Visit: Yes Status: Acute Plan to address problem: - Unclear if gastric or small bowel cancer causing obstruction, or pancreas/ biliary source eroding in to gastric area. - Agree with current Onco workup. - Has been referred to Dr Henson at [place] for EUS/?bypass surgery. - OK to clamp biliary drain and send home per our service (I have sent a message to IR). - Will f/u with Dr Pedersen next week (and Onco/Onco Surgery) in our office. - Would d/c on 5 more days levofloxacin. - Will sign off; please call if needed. Subjective Date of service: 01/16/18 Principal diagnosis: Malignant biliary obstruction Interval history: The patient is tolerating small amounts of her diet, and has no severe RUQ pain or N/V. Objective - Constitutional Vitals: Temp Pulse Resp BP Pulse Ox 98.6 F 55 L 16 134/67 97 01/16/18 07:20 01/16/18 07:20 01/16/18 07:20 01/16/18 07:20 01/16/18 07:20 General appearance: no acute distress - Respiratory Respiratory effort: normal Respiratory: bilateral: CTA - Cardiovascular Rhythm: regular Heart Sounds: Present: S1 & S2 - Gastrointestinal General gastrointestinal: Present: soft, non-tender, non-distended - Labs CBC & Chem 7: 01/16/18 06:20 01/16/18 06:20 Labs: Laboratory Results - last 24 hr 01/12/18 01/16/18 01/16/18 18:52 06:20 06:20 WBC 11.4 H RBC 3.34 L Hgb 8.5 L Hct 27.4 L MCV 82 MCH 26 L MCHC 31 RDW 24.4 H Plt Count 316 Lymph % (Auto) 1.6 L [place] % (Auto) 10.7 H Eos % (Auto) 0.5 Baso % (Auto) 0.2 Lymph # 0.2 L [place] # 1.2 H Eos # 0.1 Baso # 0.0 Seg Neutrophils % 87.0 H Seg Neutrophils # 9.9 H Sodium 135 L Potassium 3.8 Chloride 102.7 Carbon Dioxide 20 L Anion Gap 16 BUN 11 Creatinine 0.7 Estimated GFR > 60 BUN/Creatinine Ratio 16 Glucose 112 H Calcium 8.3 L Total Bilirubin 1.70 H AST 9 ALT 17 Alkaline Phosphatase 295 H Total Protein 5.3 L Albumin 2.3 L Albumin/Globulin Ratio 0.8 CA 19-9 Antigen 86 H
[2018-01-16] MEDS ORDERED: VANCOMYCIN VIAL 1,000 MG in NACL 0.9% 100 ML IV SCH (13:00)
[2018-01-16] MEDS ORDERED: VANCOMYCIN 1,750 MG in NACL 0.9% 500 ML 500 ML IV ONE ×2 (13:00→16:00)
[2018-01-16] MEDS ORDERED: VANCOMYCIN PHARMACY TO DOSE IV SCH (13:00)
--- NOTE | 2018-01-16 14:16 | Progress Note ---
Assessment and Plan - Patient Problems (1) Chronic back pain Current Visit: No Status: Acute Plan to address problem: Adjust current pain medication dose and increase frequency. Continue anti- emetics (2) Intractable nausea and vomiting Current Visit: No Status: Acute Qualifiers: Vomiting type: unspecified Qualified Code(s): R11.2 - Nausea with vomiting , unspecified Plan to address problem: Continue IV hydration, encourage oral fluid intake antiemetics as ordered (3) S/P laparoscopic cholecystectomy Current Visit: No Status: Acute Plan to address problem: Biliary stent drain clamped Per IR . Patient being transferred to [place] for [facility] evaluation CT scan report noted showing thickening of the disctal rectl wall possibley secondary to malignancy versus colitis Patient being started on antibiotics by ID (Meropenem and Vancomycin ) Continue to monitor labs. Subjective Date of service: 01/16/18 Principal diagnosis: Malignant biliary obstruction Interval history: Covering Dr Ramos Patient seen and examined . Complains of ongoing nausea but abdominal pain slightly better . Patient denied chest pain and no shortness of breath ,no fever reported . Biliary drain catheter now clamped . Objective - Exam Narrative Exam: GENERAL: Acutely ill-looking, uncomfortable due to pain HEENT: Moderately , jaundiced no cyanosis NECK: [No JVD, no thyroid enlargement and no lymphadenopathy.] CHEST/LUNGS: [Good air exchange bilaterally, no wheeze, no rales and no rhonchi. ] [No chest wall tenderness, percussion is normal, symmetrical chest wall.] HEART/CARDIOVASCULAR: [Regular rate and rhythm, S1 and S2 only, no murmur.] ABDOMEN: [Abdomen is soft, uniformly distended, tenderness in the right lumbar region minimal guarding posteriorly rebound tenderness Biliary stent drain in place clamped . SKIN: [Warm and dry, no rash.] NEURO: [Awake, alert, oriented x3, speech normal. Power 5/5 in all the extremities.] EXTREMITIES: [No pedal edema, good peripheral pulses, no finger or toe clubbing. ] - Constitutional Vitals: Vital Signs - 12hr 01/16/18 07:20 Temperature 98.6 F Pulse Rate 55 L Respiratory 16 Rate Blood Pressure 134/67 O2 Sat by Pulse 97 Oximetry - Labs CBC & Chem 7: 01/17/18 05:29 01/17/18 05:29 Labs: Abnormal lab results 01/12/18 01/16/1818 Range/Units 18:52 06:20 06:20 WBC 11.4 H (4.5-11.0) K/mm3 RBC 3.34 L (3.65-5.03) M/mm3 Hgb 8.5 L (10.1-14.3) gm/dl Hct 27.4 L (30.3-42.9) % MCH 26 L (28-32) pg RDW 24.4 H (13.2-15.2) % Lymph % (Auto) 1.6 L (13.4-35.0) % [place] % (Auto) 10.7 H (0.0-7.3) % Lymph # 0.2 L (1.2-5.4) K/mm3 [place] # 1.2 H (0.0-0.8) K/mm3 Seg Neutrophils % 87.0 H (40.0-70.0) % Seg Neutrophils # 9.9 H (1.8-7.7) K/mm3 Sodium 135 L (137-145) mmol/L Carbon Dioxide 20 L (22-30) mmol/L Glucose 112 H (65-100) mg/dL Calcium 8.3 L (8.4-10.2) mg/dL Total Bilirubin 1.70 H (0.1-1.2) mg/dL Alkaline Phosphatase 295 H (35-129) units/L Total Protein 5.3 L (6.3-8.2) g/dL Albumin 2.3 L (3.9-5) g/dL CA 19-9 Antigen 86 H (<34) U/mL
[2018-01-16] MEDS: MERREM 1,000 MG in NACL 0.9% 100 ML IV SCH ×2 (15:00→22:26)
--- NOTE | 2018-01-16 16:03 | Consultation ---
History of Present Illness - Reason for Consult Consult date: 01/16/18 elevated LFTs and leukocytosis ?cholangitis Requesting physician: BETHANY LITTLE - History of Present Illness 57 years old female with a history of Chronic afib, Diastolic heart failure, HTN , gastric bypass, pancreatitis; admitted on 01/06/18 due to 10-day history of intractable nausea and vomiting - 4-5 x a day, bilious associated with epigastric pain. Pain 8-10/10 in severity. Denies fever or chills. Patient was unable to take anything by mouth. Reports 20+ Lb weight loss. In the ED, initial temperature 97.7, heart rate 74, respirations 24, O2 sat 100 , blood pressure 208/108. Initial white count 8.2. Hemoglobin 13. Platelets 423. Creatinine 1.4. . Lipase 251. SOHAIL 1:320. Transaminases were elevated twith a total bili of 4.5 and elevated lipase of 239. Underwent EGD showed inflammed mucosa around anastomosis. Biopsy consistent with ? malignancy. Percutaneous transhepatic cholangiography and drainage on 01/11. S/P internal external biliary drain insertion on 01/12. Biliary culture from 01/14 ESBL Ecoli and Enterococcus. Microbiology: Biliary cultures: 01/14 ESBL Ecoli and Enterococcus. Current Antimicrobials: none Previous Antimicrobials: Past History Past Medical History: atrial fib, diabetes, GERD, heart failure, hypertension Past Surgical History: Other (gastric bypas) Social history: denies: smoking, alcohol abuse, prescription drug abuse Family history: no significant family history Medications and Allergies Allergies Allergy/AdvReac Type Severity Reaction Status Date / Time amoxicillin [Amoxicillin] Allergy Unknown Verified 12/24/17 08:33 NSAIDS (Non-Steroidal Allergy Bleeding Verified 12/24/17 08:33 Anti-Inflamma prednisone Allergy Diarrhea Verified 12/24/17 08:33 Home Medications Medication Instructions Recorded Confirmed Last Taken Type Hydralazine HCl [hydrALAZINE] 100 mg PO TID 09/25/13 01/14/18 01/02/18 History Apixaban [Eliquis] 5 mg PO BID #60 tablet 12/29/17 01/14/18 01/02/18 Rx AtorvaSTATin [Lipitor] 20 mg PO QHS #30 tablet 12/29/17 01/14/18 01/02/18 Rx Bumetanide [Bumex 1 mg tab] 2 mg PO QDAY #30 tablet 12/29/17 01/14/18 01/02/18 Rx Carvedilol [Coreg] 12.5 mg PO BID #60 tablet 12/29/17 01/14/18 01/02/18 Rx Escitalopram [Lexapro] 10 mg PO DAILY #30 tablet 12/29/17 01/14/18 01/02/18 Rx Lisinopril [Zestril TAB] 20 mg PO BID #60 tablet 12/29/17 01/14/18 01/02/18 Rx Ondansetron [Zofran Odt] 4 mg PO Q8H PRN #30 tab.rapdis 12/29/17 01/14/18 Rx Spironolactone [Aldactone] 25 mg PO QDAY #30 tablet 12/29/17 01/14/18 01/02/18 Rx Sucralfate [Carafate] 1 gm PO Q6HR 30 Days oral.liqd 12/29/17 01/07/18 Rx Active Meds: Active Medications Carvedilol (Coreg) 12.5 mg PO BID [facility]LY [facility], [facility] Last Admin: 01/16/18 11:23 Dose: 12.5 mg Enoxaparin Sodium (Lovenox) 40 mg SUB-Q QDAY [facility], [facility] Last Admin: 01/16/18 11:23 Dose: 40 mg Hydralazine HCl (Apresoline) 10 mg IV Q6HR PRN PRN Reason: Systolic BP greater than 160 Last Admin: 01/12/18 16:19 Dose: 10 mg Hydralazine HCl (Apresoline) 100 mg PO BID [facility]1983 Last Admin: 01/16/18 11:22 Dose: 100 mg Hydromorphone HCl (Dilaudid) 2 mg IV Q4H PRN PRN Reason: Pain , Severe (7-10) Last Admin: 01/16/18 11:22 Dose: 2 mg Sodium Chloride (Nacl 0.9% 1000 Ml) 1,000 mls @ 75 mls/hr IV DIRECT [facility] Last Admin: 01/16/18 11:21 Dose: 75 mls/hr Meropenem 1,000 mg/ Sodium (Chloride) 100 mls @ 100 mls/hr IV Q8HR [facility], [facility]1983; Protocol Vancomycin HCl 1,500 mg/ (Sodium Chloride) 515 mls @ 333.333 mls/hr IV Q12H [facility] Vancomycin HCl 1,750 mg/ (Sodium Chloride) 517.5 mls @ 333.333 mls/hr IV ONCE ONE Stop: 01/16/18 17:33 Lisinopril (Zestril) 20 mg PO BID [facility] Last Admin: 01/16/18 11:24 Dose: 20 mg Metoclopramide HCl (Reglan) 10 mg IV Q8H [facility] Last Admin: 01/16/18 11:24 Dose: 10 mg Ondansetron HCl (Zofran) 4 mg IV Q6H PRN PRN Reason: Nausea And Vomiting Last Admin: 01/14/18 11:21 Dose: 4 mg Oxycodone HCl (Roxicodone) 10 mg PO Q4H PRN PRN Reason: Pain, Moderate (4-6) Last Admin: 01/15/18 15:17 Dose: 10 mg Pantoprazole Sodium (Protonix) 40 mg PO DAILY [facility] Last Admin: 01/16/18 11:23 Dose: 40 mg Sucralfate (Carafate) 1 gm PO Q6HR [facility] Last Admin: 01/16/18 11:24 Dose: 1 gm Vancomycin HCl (Vancomycin Pharmacy To Dose) 1 each IV PKCONSULT [facility], [facility] Physical Examination - Physical Exam Narrative exam: General appearance: Alert in NAD, conversant Eyes: anicteric sclerae, moist conjunctivae; no lid-lag; PERRLA HENT: Atraumatic; oropharynx clear Neck: Trachea midline; supple, no thyromegaly or lymphadenopathy Lungs: CTA, with normal respiratory effort and no intercostal retractions CV: RRR, no murmurs Abdomen: Soft, +TTP RUQ + drain capped Extremities: No peripheral edema or extremity lymphadenopathy Skin: Normal temperature, turgor and texture; no rash, ulcers or subcutaneous nodules Psych: Appropriate affect, alert and oriented to person, place and time. Neuro: alert and oriented x 3. Moving all extermities Lines: No CVL / PICC - Constitutional Vitals: Vital Signs Temp Pulse Resp BP Pulse Ox 98.6 F 55 L 16 134/67 97 01/16/18 07:20 01/16/18 07:20 01/16/18 07:20 01/16/18 07:20 01/16/18 07:20 Temperature -Last 24 Hours Temperature 98.6 F Temperature 98.9 F Results - Labs CBC & Chem 7: 01/16/18 06:20 01/16/18 06:20 Labs: Abnormal lab results 01/12/18 01/16/18 01/16/18 Range/Units 18:52 06:20 06:20 WBC 11.4 H (4.5-11.0) K/mm3 RBC 3.34 L (3.65-5.03) M/mm3 Hgb 8.5 L (10.1-14.3) gm/dl Hct 27.4 L (30.3-42.9) % MCH 26 L (28-32) pg RDW 24.4 H (13.2-15.2) % Lymph % (Auto) 1.6 L (13.4-35.0) % [place] % (Auto) 10.7 H (0.0-7.3) % Lymph # 0.2 L (1.2-5.4) K/mm3 [place] # 1.2 H (0.0-0.8) K/mm3 Seg Neutrophils % 87.0 H (40.0-70.0) % Seg Neutrophils # 9.9 H (1.8-7.7) K/mm3 Sodium 135 L (137-145) mmol/L Carbon Dioxide 20 L (22-30) mmol/L Glucose 112 H (65-100) mg/dL Calcium 8.3 L (8.4-10.2) mg/dL Total Bilirubin 1.70 H (0.1-1.2) mg/dL Alkaline Phosphatase 295 H (35-129) units/L Total Protein 5.3 L (6.3-8.2) g/dL Albumin 2.3 L (3.9-5) g/dL CA 19-9 Antigen 86 H (<34) U/mL Assessment and Plan Assessment: 1) Presumed biliary obstruction with infection: ? cholangitis -EGD showed inflammed mucosa around gastric anastomosis. -S/p Gastric Biopsy consistent with ? malignancy. -S/p Percutaneous transhepatic cholangiography and drainage on 01/11. -S/P internal external biliary drain insertion on 01/12. -Biliary culture from 01/14 ESBL Ecoli and Enterococcus. 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 lupus Plan: -start meropenem and vancomcyin for now -Team considering transferring to [place] -contact isolation -C-reactive protein (CRP) Thank you for your consultation, will follow up with you. Clau Ron MD Infectious Diseases Specialist [facility] ([facility] M [phone] O [phone]
[2018-01-16] MEDS: ZOFRAN IV PRN (17:30)
[2018-01-17] MEDS: CARAFATE PO SCH ×4 (01:16→18:17)
[2018-01-17] MEDS: DILAUDID IV PRN ×5 (01:55→22:34)
[2018-01-17] MEDS: VANCOMYCIN 1,500 MG in NACL 0.9% 500 ML 500 ML IV SCH ×2 (04:06→16:09)
[2018-01-17] MEDS: REGLAN IV SCH ×3 (04:07→19:21)
[2018-01-17] MEDS: MERREM 1,000 MG in NACL 0.9% 100 ML IV SCH ×3 (06:09→22:31)
[2018-01-17] MEDS: ZOFRAN IV PRN (06:12)
[2018-01-17 06:24] LABS: Basophils % (Auto) 0.1 % (0.0-1.8); Eosinophils # (Auto) 0.1 K/mm3 (0.0-0.4); Eosinophils % (Auto) 0.6 % (0.0-4.3); Hematocrit 25.4 % (30.3-42.9); Lymphocytes # (Auto) 0.2 K/mm3 (1.2-5.4); Lymphocytes % (Auto) 1.3 % (13.4-35.0); Mean Corpuscular HGB Conc 32 % (30-34); Mean Corpuscular Volume 82 fl (79-97); Monocytes # (Auto) 1.3 K/mm3 (0.0-0.8); Monocytes % (Auto) 10.4 % (0.0-7.3); Platelet Count 312 K/mm3 (140-440); Red Blood Count 3.11 M/mm3 (3.65-5.03)
[2018-01-17 06:25] LABS: Mean Corpuscular Hemoglobin 26 pg (28-32); Red Cell Distribution Width 23.8 % (13.2-15.2)
[2018-01-17 06:44] LABS: Alanine Aminotransferase 13 units/L (7-56); Albumin 2.3 g/dL (3.9-5); BUN/Creatinine Ratio 14; Blood Urea Nitrogen 10 mg/dL (7-17); Hemolysis Index 10
--- NOTE | 2018-01-17 07:52 | Event Note ---
Date: 01/17/18 Total bilirubin okay with drained capped. Patient okay for discharge from an interventional radiology standpoint.
[2018-01-17] MEDS: ROXICODONE PO PRN ×2 (09:08→14:43)
--- NOTE | 2018-01-17 09:29 | Hem/Onc Progress Note ---
Assessment and Plan path adeno- awaiting sp stains limited tissue to process- d/w Dr horner- pathologist. may need more tissue with EUS and bx at [place] if necessary Patient will week. Prefers transferred to [place] rather than going through outpatient due to still not being able to take care of herself. Next Jacob down. CA 19-9 and CEA 125 are high but could be nonspecific. Awaiting CEA Subjective Date of service: 01/17/18 Interval history: Pt c/o pain in the site of tube. q 4 h dilaudid not lasting for q4. On oxycodone every 4 hours also. Complains of weakness. Very anxious. Objective - Exam Narrative Exam: Anxious. - Constitutional Vitals: Last Vital Signs Temp 99.9 F H 01/17/18 07:10 Pulse 85 01/17/18 07:10 Resp 18 01/17/18 09:08 BP 134/63 01/17/18 07:10 Pulse Ox 94 01/17/18 07:10 Pain Intensity (0-10): 5/10 Performance status: 3-limited selfcare - Neck Neck: supple - Respiratory Respiratory effort: Positive: normal Respiratory: bilateral: diminished - Cardiovascular Rhythm: regular Extremities: No edema - Gastrointestinal General gastrointestinal: Present: soft, tender - Labs Lab Results: Laboratory Results - last 24 hr 01/16/18 01/17/18 01/17/18 17:02 05:29 05:29 WBC 12.8 H RBC 3.11 L Hgb 8.0 L Hct 25.4 L MCV 82 MCH 26 L MCHC 32 RDW 23.8 H Plt Count 312 Lymph % (Auto) 1.3 L [place] % (Auto) 10.4 H Eos % (Auto) 0.6 Baso % (Auto) 0.1 Lymph # 0.2 L [place] # 1.3 H Eos # 0.1 Baso # 0.0 Seg Neutrophils % 87.6 H Seg Neutrophils # 11.2 H Sodium 135 L Potassium 3.8 Chloride 102.6 Carbon Dioxide 21 L Anion Gap 15 BUN 10 Creatinine 0.7 Estimated GFR > 60 BUN/Creatinine Ratio 14 Glucose 99 Calcium 8.0 L Total Bilirubin 1.50 H AST 9 ALT 13 Alkaline Phosphatase 258 H C-Reactive Protein 12.90 H Total Protein 5.1 L Albumin 2.3 L Albumin/Globulin Ratio 0.8
--- NOTE | 2018-01-17 09:34 | Progress Note ---
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 Intrabiliary drain inseted by IP 01/11/18 still draining much - 1050 over the past 24 hrs Oncology consult. Communicated with Dr. Anderson Continue increase fluid and regular diet and IVF, iv protonix and zofran Pain control with narcotics -Biliary obstruction s/p CBD drain inserted 01/11/18 with decreasing T. bili from 8.0 on 01/11 to 1.5 today [place] head of pancrease Transminases improving. Alkaline Phosphatse and T. 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 Robbins, continue with iv Merepenem and vanc for possible 2weeks. Pt may be discharge with a PICC line for home iv antibiotic - chronic Afib- stable. Rate controlled - Diastolic heart failure continue with lisinopril andcoreg - GERD Protonix Avoid NSAIDS DVT and GI ppx with lovenox and pepcid Disposition: To cap biliary drain and d/c home per Gi and IR. D/c with ID, Dr Robbins who rrequest a PICC line placed for home iv antibiotic b/c ESBL and Enterococcus specie grown from the biliary fluid. Subjective Date of service: 01/17/18 Principal diagnosis: Abdominla pain with N?V, pancratitis and fatty liver disease Interval history: Still having abdominal pain nausea and vomiting though controlled and antiemetic. Had EGD 01/10/18 and Stent placement by IP 01/11/18 Objective - Constitutional Vitals: Vital Signs - 12hr 01/16/18 01/17/18 01/17/18 22:00 07:10 09:08 Temperature 99.9 F H Pulse Rate 85 85 Respiratory 16 18 Rate Blood Pressure 155/76 134/63 O2 Sat by Pulse 94 Oximetry General appearance: Present: no acute distress, well-nourished - EENT Eyes: PERRL, EOM intact - Neck Neck: supple, normal ROM - Respiratory Respiratory: bilateral: CTA - Cardiovascular Rhythm: regular Heart Sounds: Present: S1 & S2. Absent: gallop, rub Extremities: pulses intact, No edema, normal color, Full ROM - Gastrointestinal General gastrointestinal: Present: soft, non-tender, non-distended, normal bowel sounds - Integumentary Integumentary: clear, warm, dry - Musculoskeletal Musculoskeletal: 1, strength equal bilaterally - Neurologic Neurologic: moves all extremities - Psychiatric Psychiatric: memory intact, appropriate mood/affect, intact judgment & insight - Labs CBC & Chem 7: 01/17/18 05:29 01/17/18 05:29 Labs: Abnormal lab results 01/16/18 01/17/18 01/17/18 Range/Units 17:02 05:29 05:29 WBC 12.8 H (4.5-11.0) K/mm3 RBC 3.11 L (3.65-5.03) M/mm3 Hgb 8.0 L (10.1-14.3) gm/dl Hct 25.4 L (30.3-42.9) % MCH 26 L (28-32) pg RDW 23.8 H (13.2-15.2) % Lymph % (Auto) 1.3 L (13.4-35.0) % [place] % (Auto) 10.4 H (0.0-7.3) % Lymph # 0.2 L (1.2-5.4) K/mm3 [place] # 1.3 H (0.0-0.8) K/mm3 Seg Neutrophils % 87.6 H (40.0-70.0) % Seg Neutrophils # 11.2 H (1.8-7.7) K/mm3 Sodium 135 L (137-145) mmol/L Carbon Dioxide 21 L (22-30) mmol/L Calcium 8.0 L (8.4-10.2) mg/dL Total Bilirubin 1.50 H (0.1-1.2) mg/dL Alkaline Phosphatase 258 H (35-129) units/L C-Reactive Protein 12.90 H (0.00-1.30) mg/dL Total Protein 5.1 L (6.3-8.2) g/dL Albumin 2.3 L (3.9-5) g/dL
[2018-01-17] MEDS: LOVENOX SUB-Q SCH (11:24)
[2018-01-17] MEDS: PROTONIX PO SCH (11:25)
[2018-01-17] MEDS: APRESOLINE PO SCH ×2 (11:25→22:29)
[2018-01-17] MEDS: ZESTRIL PO SCH ×2 (11:25→22:28)
[2018-01-17] MEDS: COREG PO SCH ×2 (11:25→22:30)
[2018-01-17] MEDS: NACL 0.9% 1000 ML 1,000 ML IV SCH (12:07)
--- NOTE | 2018-01-17 14:47 | Progress Note ---
Assessment and Plan Assessment: 1) Presumed biliary obstruction with infection: ? cholangitis -EGD showed inflammed mucosa around gastric anastomosis. -S/p Gastric Biopsy consistent with ? malignancy. -S/p Percutaneous transhepatic cholangiography and drainage on 01/11. -S/P internal external biliary drain insertion on 01/12. -Biliary culture from 01/14 ESBL Ecoli and Enterococcus sp. 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 lupus Plan: -continue meropenem and vancomcyin for now -consider transferring to [place] - pain is not control -contact isolation Thank you for your consultation, will follow up with you. Clau Ron MD Infectious Diseases Specialist [facility] ([facility]) M [phone] O [phone] Subjective Date of service: 01/17/18 Principal diagnosis: Abdominla pain with N?V, pancratitis and fatty liver disease Interval history: Feels the same, still severe RUQ pain 07/18. Tmax 99.9 Microbiology: Biliary cultures: 01/14 ESBL Ecoli and Enterococcus. Current Antimicrobials: Meroepenem 01/16 vanco 01/16 Previous Antimicrobials: Objective - Exam Narrative Exam: General appearance: Alert in NAD, conversant Eyes: anicteric sclerae, moist conjunctivae; no lid-lag; PERRLA HENT: Atraumatic; oropharynx clear Neck: Trachea midline; supple, no thyromegaly or lymphadenopathy Lungs: CTA, with normal respiratory effort and no intercostal retractions CV: RRR, no murmurs Abdomen: Soft, +TTP RUQ + drain capped Extremities: No peripheral edema or extremity lymphadenopathy Skin: Normal temperature, turgor and texture; no rash, ulcers or subcutaneous nodules Psych: Appropriate affect, alert and oriented to person, place and time. Neuro: alert and oriented x 3. Moving all extermities Lines: No CVL / PICC - Constitutional Vitals: Vital Signs Temp Pulse Resp BP Pulse Ox 99.9 F H 85 18 134/63 94 01/17/18 07:10 01/17/18 11:25 01/17/18 10:08 01/17/18 11:25 01/17/18 07:10 Temperature -Last 24 Hours Temperature 99.9 F Temperature 98.1 F Temperature 98.3 F - Labs CBC & Chem 7: 01/17/18 05:29 01/17/18 05:29 Labs: Abnormal lab results 01/16/18 01/17/18 01/17/18 Range/Units 17:02 05:29 05:29 WBC 12.8 H (4.5-11.0) K/mm3 RBC 3.11 L (3.65-5.03) M/mm3 Hgb 8.0 L (10.1-14.3) gm/dl Hct 25.4 L (30.3-42.9) % MCH 26 L (28-32) pg RDW 23.8 H (13.2-15.2) % Lymph % (Auto) 1.3 L (13.4-35.0) % [place] % (Auto) 10.4 H (0.0-7.3) % Lymph # 0.2 L (1.2-5.4) K/mm3 [place] # 1.3 H (0.0-0.8) K/mm3 Seg Neutrophils % 87.6 H (40.0-70.0) % Seg Neutrophils # 11.2 H (1.8-7.7) K/mm3 Sodium 135 L (137-145) mmol/L Carbon Dioxide 21 L (22-30) mmol/L Calcium 8.0 L (8.4-10.2) mg/dL Total Bilirubin 1.50 H (0.1-1.2) mg/dL Alkaline Phosphatase 258 H (35-129) units/L C-Reactive Protein 12.90 H (0.00-1.30) mg/dL Total Protein 5.1 L (6.3-8.2) g/dL Albumin 2.3 L (3.9-5) g/dL
--- NOTE | 2018-01-17 16:28 | Progress Note ---
Assessment and Plan 1. Obstructive jaundice, with malignancy involving stomach pouch - drain in place. Pt has cholangitis, and is being treated as per ID. - clinically stable at present - adv diet - after PICC, march D/C on home IV abx and home support, with outpatient f/u at [place]. Unless pt deteriorates, [place] would not do diagnostic or other invasive evaluation until infection is cleared. Discussed with pt, who concurs. Will f/u tomorrow. Subjective Date of service: 01/17/18 Principal diagnosis: Abdominla pain with N?V, pancratitis and fatty liver disease Interval history: Pt doing well. PTC drain capped. Objective - Constitutional Vitals: Vital Signs - 12hr 01/17/18 01/17/18 01/17/18 07:10 09:08 10:08 Temperature 99.9 F H Pulse Rate 85 Respiratory 16 18 18 Rate Blood Pressure 134/63 O2 Sat by Pulse 94 Oximetry 01/17/18 11:25 Temperature Pulse Rate 85 Respiratory Rate Blood Pressure 134/63 O2 Sat by Pulse Oximetry General appearance: Present: no acute distress - EENT Eyes: PERRL, EOM intact ENT: hearing intact - Respiratory Respiratory effort: normal - Gastrointestinal General gastrointestinal: Present: soft, other (Dressing dry and intact.) - Labs CBC & Chem 7: 01/17/18 05:29 01/17/18 05:29 Labs: Abnormal lab results 01/16/18 01/17/18 01/17/18 Range/Units 17:02 05:29 05:29 WBC 12.8 H (4.5-11.0) K/mm3 RBC 3.11 L (3.65-5.03) M/mm3 Hgb 8.0 L (10.1-14.3) gm/dl Hct 25.4 L (30.3-42.9) % MCH 26 L (28-32) pg RDW 23.8 H (13.2-15.2) % Lymph % (Auto) 1.3 L (13.4-35.0) % [place] % (Auto) 10.4 H (0.0-7.3) % Lymph # 0.2 L (1.2-5.4) K/mm3 [place] # 1.3 H (0.0-0.8) K/mm3 Seg Neutrophils % 87.6 H (40.0-70.0) % Seg Neutrophils # 11.2 H (1.8-7.7) K/mm3 Sodium 135 L (137-145) mmol/L Carbon Dioxide 21 L (22-30) mmol/L Calcium 8.0 L (8.4-10.2) mg/dL Total Bilirubin 1.50 H (0.1-1.2) mg/dL Alkaline Phosphatase 258 H (35-129) units/L C-Reactive Protein 12.90 H (0.00-1.30) mg/dL Total Protein 5.1 L (6.3-8.2) g/dL Albumin 2.3 L (3.9-5) g/dL
[2018-01-17] MEDS ORDERED: TYLENOL PO PRN (23:51)
[2018-01-18] MEDS: CARAFATE PO SCH ×4 (02:18→17:28)
[2018-01-18] MEDS: DILAUDID IV PRN ×4 (04:34→18:34)
[2018-01-18] MEDS: REGLAN IV SCH ×3 (04:39→22:24)
[2018-01-18] MEDS: VANCOMYCIN 1,500 MG in NACL 0.9% 500 ML 500 ML IV SCH ×2 (04:40→17:29)
[2018-01-18] MEDS: MERREM 1,000 MG in NACL 0.9% 100 ML IV SCH ×3 (05:39→22:25)
[2018-01-18 07:03] LABS: Basophils % (Auto) 0.3 % (0.0-1.8); Eosinophils # (Auto) 0.1 K/mm3 (0.0-0.4); Eosinophils % (Auto) 0.6 % (0.0-4.3); Hematocrit 26.6 % (30.3-42.9); Hemoglobin 8.1 gm/dl (10.1-14.3); Lymphocytes # (Auto) 0.2 K/mm3 (1.2-5.4); Lymphocytes % (Auto) 1.8 % (13.4-35.0); Mean Corpuscular HGB Conc 31 % (30-34); Mean Corpuscular Volume 81 fl (79-97); Monocytes # (Auto) 1.3 K/mm3 (0.0-0.8); Monocytes % (Auto) 10.6 % (0.0-7.3); Platelet Count 341 K/mm3 (140-440); Red Blood Count 3.27 M/mm3 (3.65-5.03)
[2018-01-18 07:09] LABS: Mean Corpuscular Hemoglobin 25 pg (28-32); Red Cell Distribution Width 24.3 % (13.2-15.2)
[2018-01-18 07:12] LABS: INR 1.17 (0.87-1.13)
[2018-01-18 07:24] LABS: Alanine Aminotransferase 11 units/L (7-56); Albumin 2.4 g/dL (3.9-5); BUN/Creatinine Ratio 11; Blood Urea Nitrogen 8 mg/dL (7-17); Hemolysis Index 1
--- NOTE | 2018-01-18 07:54 | Progress Note ---
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 Intrabiliary drain inseted by IP 01/11/18 still draining much - 1050 over the past 24 hrs Oncology consult. Communicated with Dr. Anderson Continue increase fluid and regular diet and IVF, iv protonix and zofran Pain control with narcotics -Biliary obstruction s/p CBD drain inserted 01/11/18 with decreasing T. bili from 8.0 on 01/11 to 1.5 today [place] head of pancrease Transminases improving. Alkaline Phosphatse and T. bili decreasing -Cholangitis Culture crew ESBL and Entroccocus specie D/w ID, Dr. 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 Rate controlled - Diastolic heart failure continue with lisinopril and coreg - GERD Protonix Avoid NSAIDS DVT and GI ppx with lovenox and pepcid Disposition: Biliary drain caped. D/w with ID, Dr Robbins who request a PICC line placed for home iv antibiotic b/c ESBL when stable [place]. Enterococcus specie grown from the biliary fluid. Subjective Date of service: 01/18/18 Principal diagnosis: Abdominla pain with N?V, pancratitis and fatty liver disease Interval history: ABdominal pain improving as well as nausea and vomiting. Had EGD 01/10/18 and Stent placement by IP 01/11/18. No chills. Had elevated temp once yesterday with Tmax 100.5 and Tc of 99.0 Objective - Constitutional Vitals: Vital Signs - 12hr 01/17/18 01/17/18 01/17/18 22:28 22:30 22:34 Pulse Rate 60 60 Respiratory 18 Rate Blood Pressure 180/90 180/90 01/18/18 01/18/18 04:34 05:04 Pulse Rate Respiratory 18 18 Rate Blood Pressure General appearance: Present: no acute distress, well-nourished - EENT Eyes: PERRL, EOM intact - Neck Neck: supple, normal ROM - Respiratory Respiratory effort: normal Respiratory: bilateral: CTA - Cardiovascular Rhythm: regular Heart Sounds: Present: S1 & S2. Absent: gallop, rub Extremities: pulses intact, No edema, normal color, Full ROM - Gastrointestinal General gastrointestinal: Present: soft, non-distended, normal bowel sounds - Genitourinary Female genitourinary: normal - Integumentary Integumentary: clear, warm, dry - Musculoskeletal Musculoskeletal: 1, strength equal bilaterally - Neurologic Neurologic: moves all extremities - Psychiatric Psychiatric: memory intact, appropriate mood/affect, intact judgment & insight - Labs CBC & Chem 7: 01/18/18 05:56 01/18/18 05:56 Labs: Abnormal lab results 01/18/18 01/18/18 01/18/18 Range/Units 05:56 05:56 05:56 WBC 12.5 H (4.5-11.0) K/mm3 RBC 3.27 L (3.65-5.03) M/mm3 Hgb 8.1 L (10.1-14.3) gm/dl Hct 26.6 L (30.3-42.9) % MCH 25 L (28-32) pg RDW 24.3 H (13.2-15.2) % Lymph % (Auto) 1.8 L (13.4-35.0) % [place] % (Auto) 10.6 H (0.0-7.3) % Lymph # 0.2 L (1.2-5.4) K/mm3 [place] # 1.3 H (0.0-0.8) K/mm3 Seg Neutrophils % 86.7 H (40.0-70.0) % Seg Neutrophils # 10.8 H (1.8-7.7) K/mm3 PT 15.5 H (12.2-14.9) Sec. INR 1.17 H (0.87-1.13) Carbon Dioxide 21 L (22-30) mmol/L Glucose 109 H (65-100) mg/dL Calcium 8.0 L (8.4-10.2) mg/dL Total Bilirubin 1.40 H (0.1-1.2) mg/dL Alkaline Phosphatase 242 H (35-129) units/L Total Protein 5.1 L (6.3-8.2) g/dL Albumin 2.4 L (3.9-5) g/dL
--- NOTE | 2018-01-18 09:29 | Hem/Onc Progress Note ---
Assessment and Plan Patient to complete a course of anti-biotics. GI is arranging outpatient follow -up at [place] for EUS and possible biopsy. Continue to monitor. See her as outpatient after [place] appointment. Subjective Date of service: 01/18/18 Interval history: Pt c/o pain in the site of tube. Feels better. Objective - Constitutional Vitals: Last Vital Signs Temp 97.9 F 01/18/18 07:21 Pulse 74 01/18/18 07:21 Resp 20 01/18/18 07:21 BP 135/69 01/18/18 07:21 Pulse Ox 97 01/18/18 07:21 Pain Intensity (0-10): 3/10 General appearance: no acute distress Performance status: 2- selfcare, ambulatory - Neck Neck: supple - Respiratory Respiratory effort: Positive: normal Respiratory: bilateral: diminished - Cardiovascular Rhythm: regular - Gastrointestinal General gastrointestinal: Present: soft - Labs Lab Results: Laboratory Results - last 24 hr 01/18/18 01/18/18 01/18/18 05:56 05:56 05:56 WBC 12.5 H RBC 3.27 L Hgb 8.1 L Hct 26.6 L MCV 81 MCH 25 L MCHC 31 RDW 24.3 H Plt Count 341 Lymph % (Auto) 1.8 L [place] % (Auto) 10.6 H Eos % (Auto) 0.6 Baso % (Auto) 0.3 Lymph # 0.2 L [place] # 1.3 H Eos # 0.1 Baso # 0.0 Seg Neutrophils % 86.7 H Seg Neutrophils # 10.8 H PT 15.5 H INR 1.17 H Sodium 137 Potassium 3.8 Chloride 103.1 Carbon Dioxide 21 L Anion Gap 17 BUN 8 Creatinine 0.7 Estimated GFR > 60 BUN/Creatinine Ratio 11 Glucose 109 H Calcium 8.0 L Total Bilirubin 1.40 H AST 12 ALT 11 Alkaline Phosphatase 242 H Total Protein 5.1 L Albumin 2.4 L Albumin/Globulin Ratio 0.9
[2018-01-18] MEDS: LOVENOX SUB-Q SCH (09:40)
[2018-01-18] MEDS: COREG PO SCH ×2 (09:40→22:31)
[2018-01-18] MEDS: APRESOLINE PO SCH ×2 (09:41→22:26)
[2018-01-18] MEDS: ZESTRIL PO SCH ×2 (09:41→22:32)
[2018-01-18] MEDS: PROTONIX PO SCH (09:41)
--- NOTE | 2018-01-18 10:16 | Gastroenterology Progress Note ---
<DIPTI GOMES - Last Filed: 01/18/18 10:19> Assessment and Plan 1.obstructive jaundice with malignancy involving stomach pouch -PTC drain in place and being treated for cholangitis per ID -oncology following -clinically stable at this time -tolerating diet -after receiving PICC, pt is okay to be d/c per GI standpoint on IV abx and home support with outpatient f/u at [place] -will have pt f/u with Dr. Pedersen in clinic next week (appt already scheduled for Wednesday01/24/2018 at 9am) -will sign off, please call if needed Subjective Date of service: 01/18/18 Principal diagnosis: biliary obstruction Interval history: Patient resting in bed w/o acute distress. No vomiting or severe abd pain. Tolerating diet. PTC drain capped with dressing C/D/I. Objective - Constitutional Vitals: Temp Pulse Resp BP Pulse Ox 97.9 F 74 20 135/69 97 01/18/18 07:21 01/18/18 09:41 01/18/18 07:21 01/18/18 09:41 01/18/18 07:21 General appearance: no acute distress - Respiratory Respiratory: bilateral: CTA - Cardiovascular Rhythm: regular Heart Sounds: Present: S1 & S2 - Gastrointestinal General gastrointestinal: Present: soft, tender (mild TTP in upper abd), non- distended, normal bowel sounds, other (PTC drain capped with dressing intact) - Neurologic Neurological: alert and oriented x3 - Labs CBC & Chem 7: 01/18/18 05:56 01/18/18 05:56 Labs: Laboratory Results - last 24 hr 01/18/18 01/18/18 01/18/18 05:56 05:56 05:56 WBC 12.5 H RBC 3.27 L Hgb 8.1 L Hct 26.6 L MCV 81 MCH 25 L MCHC 31 RDW 24.3 H Plt Count 341 Lymph % (Auto) 1.8 L [place] % (Auto) 10.6 H Eos % (Auto) 0.6 Baso % (Auto) 0.3 Lymph # 0.2 L [place] # 1.3 H Eos # 0.1 Baso # 0.0 Seg Neutrophils % 86.7 H Seg Neutrophils # 10.8 H PT 15.5 H INR 1.17 H Sodium 137 Potassium 3.8 Chloride 103.1 Carbon Dioxide 21 L Anion Gap 17 BUN 8 Creatinine 0.7 Estimated GFR > 60 BUN/Creatinine Ratio 11 Glucose 109 H Calcium 8.0 L Total Bilirubin 1.40 H AST 12 ALT 11 Alkaline Phosphatase 242 H Total Protein 5.1 L Albumin 2.4 L Albumin/Globulin Ratio 0.9 <ROGERIO ALBARADO R - Last Filed: 01/18/18 16:04> Assessment and Plan Plan discussed with pt and with Dr. Ramos. Objective - Constitutional Vitals: Temp Pulse Resp BP Pulse Ox 97.9 F 74 20 135/69 97 01/18/18 07:21 01/18/18 09:41 01/18/18 07:21 01/18/18 09:41 01/18/18 07:21 - Labs CBC & Chem 7: 01/18/18 05:56 01/18/18 05:56 Labs: Laboratory Results - last 24 hr 01/18/18 01/18/18 01/18/18 05:56 05:56 05:56 WBC 12.5 H RBC 3.27 L Hgb 8.1 L Hct 26.6 L MCV 81 MCH 25 L MCHC 31 RDW 24.3 H Plt Count 341 Lymph % (Auto) 1.8 L [place] % (Auto) 10.6 H Eos % (Auto) 0.6 Baso % (Auto) 0.3 Lymph # 0.2 L [place] # 1.3 H Eos # 0.1 Baso # 0.0 Seg Neutrophils % 86.7 H Seg Neutrophils # 10.8 H PT 15.5 H INR 1.17 H Sodium 137 Potassium 3.8 Chloride 103.1 Carbon Dioxide 21 L Anion Gap 17 BUN 8 Creatinine 0.7 Estimated GFR > 60 BUN/Creatinine Ratio 11 Glucose 109 H Calcium 8.0 L Total Bilirubin 1.40 H AST 12 ALT 11 Alkaline Phosphatase 242 H Total Protein 5.1 L Albumin 2.4 L Albumin/Globulin Ratio 0.9
--- NOTE | 2018-01-18 11:40 | XRay Report ---
AP CHEST: HISTORY: Right arm PICC placement A right arm PICC has been inserted which terminates in the lower SVC. Mild cardiomegaly and mild central pulmonary venous congestion are stable since 01/13/18. The lungs are clear. IMPRESSION: Adequate placement of a right arm PICC. Mild cardiomegaly and pulmonary venous congestion.
--- NOTE | 2018-01-18 14:40 | Progress Note ---
Assessment and Plan Assessment: 1) Presumed biliary obstruction with infection: ? cholangitis -EGD showed inflammed mucosa around gastric anastomosis. -S/p Gastric Biopsy consistent with ? malignancy. -S/p Percutaneous transhepatic cholangiography and drainage on 01/11. -S/P internal external biliary drain insertion on 01/12. 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 lupus Plan: -continue meropenem and vancomcyin for now -needs [place] evco -contact isolation -upon discharge will do meropenem 1 g IV q8h and vancomcyin 1.5 g IV q12h total 14 days until 01/31 -ID clinic f/u in 1 week at: [facility] [id number] [place] [address] Office # [phone] Thank you for your consultation, will follow up with you. Clau Ron MD Infectious Diseases Specialist [facility] ([facility]) M [phone] O [phone] Subjective Date of service: 01/18/18 Principal diagnosis: biliary obstruction Interval history: Feels the same, still severe RUQ pain 07/18. Tmax 99.9 Microbiology: Biliary cultures: 01/14 ESBL Ecoli and Enterococcus faecalis. Current Antimicrobials: Meroepenem 01/16 vanco 01/16 Previous Antimicrobials: Objective - Exam Narrative Exam: General appearance: Alert in NAD, conversant Eyes: anicteric sclerae, moist conjunctivae; no lid-lag; PERRLA HENT: Atraumatic; oropharynx clear Neck: Trachea midline; supple, no thyromegaly or lymphadenopathy Lungs: CTA, with normal respiratory effort and no intercostal retractions CV: RRR, no murmurs Abdomen: Soft, +TTP RUQ + drain capped Extremities: No peripheral edema or extremity lymphadenopathy Skin: Normal temperature, turgor and texture; no rash, ulcers or subcutaneous nodules Psych: Appropriate affect, alert and oriented to person, place and time. Neuro: alert and oriented x 3. Moving all extermities Lines: No CVL / PICC - Constitutional Vitals: Vital Signs Temp Pulse Resp BP Pulse Ox 97.9 F 74 20 135/69 97 01/18/18 07:21 01/18/18 09:41 01/18/18 07:21 01/18/18 09:41 01/18/18 07:21 Temperature -Last 24 Hours Temperature 97.9 F Temperature 99.0 F Temperature 100.5 F - Labs CBC & Chem 7: 01/18/18 05:56 01/18/18 05:56 Labs: Abnormal lab results 01/18/18 01/18/18 01/18/18 Range/Units 05:56 05:56 05:56 WBC 12.5 H (4.5-11.0) K/mm3 RBC 3.27 L (3.65-5.03) M/mm3 Hgb 8.1 L (10.1-14.3) gm/dl Hct 26.6 L (30.3-42.9) % MCH 25 L (28-32) pg RDW 24.3 H (13.2-15.2) % Lymph % (Auto) 1.8 L (13.4-35.0) % [place] % (Auto) 10.6 H (0.0-7.3) % Lymph # 0.2 L (1.2-5.4) K/mm3 [place] # 1.3 H (0.0-0.8) K/mm3 Seg Neutrophils % 86.7 H (40.0-70.0) % Seg Neutrophils # 10.8 H (1.8-7.7) K/mm3 PT 15.5 H (12.2-14.9) Sec. INR 1.17 H (0.87-1.13) Carbon Dioxide 21 L (22-30) mmol/L Glucose 109 H (65-100) mg/dL Calcium 8.0 L (8.4-10.2) mg/dL Total Bilirubin 1.40 H (0.1-1.2) mg/dL Alkaline Phosphatase 242 H (35-129) units/L Total Protein 5.1 L (6.3-8.2) g/dL Albumin 2.4 L (3.9-5) g/dL
[2018-01-18] MEDS: NACL 0.9% 1000 ML 1,000 ML IV SCH (18:35)
[2018-01-18] MEDS: ROXICODONE PO PRN (22:33)
[2018-01-19] MEDS: ZOFRAN IV PRN ×3 (01:21→17:43)
[2018-01-19] MEDS: DILAUDID IV PRN ×5 (01:21→20:18)
[2018-01-19] MEDS: CARAFATE PO SCH ×5 (01:21→23:14)
[2018-01-19 02:49] LABS: Basophils % (Auto) 0.2 % (0.0-1.8); Eosinophils # (Auto) 0.1 K/mm3 (0.0-0.4); Eosinophils % (Auto) 1.3 % (0.0-4.3); Hematocrit 25.8 % (30.3-42.9); Hemoglobin 8.3 gm/dl (10.1-14.3); Lymphocytes # (Auto) 0.2 K/mm3 (1.2-5.4); Lymphocytes % (Auto) 2.2 % (13.4-35.0); Mean Corpuscular HGB Conc 32 % (30-34); Mean Corpuscular Volume 80 fl (79-97); Monocytes # (Auto) 1.2 K/mm3 (0.0-0.8); Monocytes % (Auto) 10.8 % (0.0-7.3); Platelet Count 337 K/mm3 (140-440); Red Blood Count 3.23 M/mm3 (3.65-5.03)
[2018-01-19 02:51] LABS: Mean Corpuscular Hemoglobin 26 pg (28-32); Red Cell Distribution Width 24.1 % (13.2-15.2)
[2018-01-19 03:05] LABS: Alanine Aminotransferase 10 units/L (7-56); Albumin 2.3 g/dL (3.9-5); BUN/Creatinine Ratio 10; Blood Urea Nitrogen 7 mg/dL (7-17); Calcium 7.7 mg/dL (8.4-10.2); Hemolysis Index 0
[2018-01-19] MEDS: REGLAN IV SCH ×3 (04:16→19:34)
[2018-01-19] MEDS: VANCOMYCIN 1,500 MG in NACL 0.9% 500 ML 500 ML IV SCH (04:17)
[2018-01-19] MEDS: MERREM 1,000 MG in NACL 0.9% 100 ML IV SCH ×3 (06:29→23:27)
[2018-01-19] MEDS: NACL 0.9% 1000 ML 1,000 ML IV SCH ×2 (06:32→23:27)
--- NOTE | 2018-01-19 09:25 | Hem/Onc Progress Note ---
Assessment and Plan Patient to complete and of ab at home. She will see GI, Eran and me as outpatient. Once we have all the information, we will have a game plan to start treating her for her recently diagnosed adenocarcinoma. Subjective Date of service: 01/19/18 Interval history: Pt c/o pain in the site of tube. But better. Awaiting food. Tolerated PICC line placement yesterday Objective - Constitutional Vitals: Last Vital Signs Temp 99.0 F 01/19/18 07:51 Pulse 70 01/19/18 07:51 Resp 20 01/19/18 07:51 BP 146/79 01/19/18 07:51 Pulse Ox 96 01/19/18 07:51 General appearance: no acute distress Performance status: 2- selfcare, ambulatory - Neck Neck: supple - Respiratory Respiratory effort: Positive: normal Respiratory: bilateral: CTA - Cardiovascular Rhythm: regular - Gastrointestinal General gastrointestinal: Present: soft - Labs Lab Results: Laboratory Results - last 24 hr 01/19/18 01/19/18 01/19/18 02:34 02:34 02:34 WBC 10.8 RBC 3.23 L Hgb 8.3 L Hct 25.8 L MCV 80 MCH 26 L MCHC 32 RDW 24.1 H Plt Count 337 Lymph % (Auto) 2.2 L [place] % (Auto) 10.8 H Eos % (Auto) 1.3 Baso % (Auto) 0.2 Lymph # 0.2 L [place] # 1.2 H Eos # 0.1 Baso # 0.0 Seg Neutrophils % 85.5 H Seg Neutrophils # 9.2 H Sodium 139 Potassium 4.0 Chloride 105.7 Carbon Dioxide 23 Anion Gap 14 BUN 7 Creatinine 0.7 Estimated GFR > 60 BUN/Creatinine Ratio 10 Glucose 108 H Calcium 7.7 L Total Bilirubin 1.20 AST 11 ALT 10 Alkaline Phosphatase 224 H Total Protein 4.7 L Albumin 2.3 L Albumin/Globulin Ratio 1.0 Vancomycin Trough 28.4 H
[2018-01-19] MEDS: LOVENOX SUB-Q SCH (10:01)
[2018-01-19] MEDS: APRESOLINE PO SCH ×2 (10:02→23:16)
[2018-01-19] MEDS: PROTONIX PO SCH (10:02)
[2018-01-19] MEDS: COREG PO SCH ×2 (10:02→23:15)
[2018-01-19] MEDS: ZESTRIL PO SCH ×2 (10:02→23:16)
--- NOTE | 2018-01-19 14:13 | Progress Note ---
Assessment and Plan Assessment: 1) Presumed biliary obstruction with infection: ? cholangitis -EGD showed inflammed mucosa around gastric anastomosis. -S/p Gastric Biopsy consistent with ? malignancy. -S/p Percutaneous transhepatic cholangiography and drainage on 01/11. -S/P internal external biliary drain insertion on 01/12. 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 lupus 10) Leukocytosis: resolved Plan: -continue meropenem and vancomycin for now -needs [place] [facility] -contact isolation -upon discharge will do meropenem 1 g IV q8h and vancomcyin 1.5 g IV q12h total 14 days until 01/31 -ID clinic f/u in 1 week at: [facility] [id number] [place] [address] Office # [phone] I am signing off Thank you for your consultation, will follow up with you. Clau Ron MD Infectious Diseases Specialist [facility] ([facility] M [phone] O [phone] Subjective Date of service: 01/19/18 Principal diagnosis: biliary obstruction Interval history: Feels some better, RUQ pain 8/10. No fever last 24h Microbiology: Biliary cultures: 01/14 ESBL Ecoli and Enterococcus faecalis. Current Antimicrobials: Meropenem 01/16 vanco 01/16 Previous Antimicrobials: Objective - Exam Narrative Exam: General appearance: Alert in NAD, conversant Eyes: anicteric sclerae, moist conjunctivae; no lid-lag; PERRLA HENT: Atraumatic; oropharynx clear Neck: Trachea midline; supple, no thyromegaly or lymphadenopathy Lungs: CTA, with normal respiratory effort and no intercostal retractions CV: RRR, no murmurs Abdomen: Soft, +TTP RUQ + drain capped Extremities: No peripheral edema or extremity lymphadenopathy Skin: Normal temperature, turgor and texture; no rash, ulcers or subcutaneous nodules Psych: Appropriate affect, alert and oriented to person, place and time. Neuro: alert and oriented x 3. Moving all extermities Lines: No CVL / PICC - Constitutional Vitals: Vital Signs Temp Pulse Resp BP Pulse Ox 99.0 F 70 20 146/79 96 01/19/18 07:51 01/19/18 07:51 01/19/18 07:51 01/19/18 07:51 01/19/18 07:51 Temperature -Last 24 Hours Temperature 99.0 F Temperature 99.1 F Temperature 98.3 F - Labs CBC & Chem 7: 01/19/18 02:34 01/19/18 02:34 Labs: Abnormal lab results 01/19/18 01/19/18 01/19/18 Range/Units 02:34 02:34 02:34 RBC 3.23 L (3.65-5.03) M/mm3 Hgb 8.3 L (10.1-14.3) gm/dl Hct 25.8 L (30.3-42.9) % MCH 26 L (28-32) pg RDW 24.1 H (13.2-15.2) % Lymph % (Auto) 2.2 L (13.4-35.0) % Terry % (Auto) 10.8 H (0.0-7.3) % Lymph # 0.2 L (1.2-5.4) K/mm3 Terry # 1.2 H (0.0-0.8) K/mm3 Seg Neutrophils % 85.5 H (40.0-70.0) % Seg Neutrophils # 9.2 H (1.8-7.7) K/mm3 Glucose 108 H (65-100) mg/dL Calcium 7.7 L (8.4-10.2) mg/dL Alkaline Phosphatase 224 H (35-129) units/L Total Protein 4.7 L (6.3-8.2) g/dL Albumin 2.3 L (3.9-5) g/dL Vancomycin Trough 28.4 H (5.0-20.0) ug/mL
[2018-01-19] MEDS: VANCOMYCIN/0.45 NS 1 GM/250 ML 1 GM/250 ML BAG IV SCH (17:48)
--- NOTE | 2018-01-19 18:56 | Progress Note ---
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 Intrabiliary drain inseted by IP 01/11/18 still draining much - 1050 over the past 24 hrs Oncology consult. Communicated with Dr. Anderson Continue increase fluid and regular diet and IVF, iv protonix and zofran Pain control with narcotics -Biliary obstruction s/p CBD drain inserted 01/11/18 with normalized T. bili and liver enzynes Possilbe CA head of pancrease Transminases improving. Alkaline Phosphatse and T. bili decreasing -Cholangitis Culture crew ESBL and Entroccocus species D/w ID, Dr. 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 Rate controlled - Diastolic heart failure continue with lisinopril and coreg - GERD Protonix Avoid NSAIDS DVT and GI ppx with lovenox and pepcid Disposition: Biliary drain caped. D/w with ID, Dr Robbins who request a PICC line placed for home iv antibiotic b/c ESBL when stable enougand. Enterococcus specie grown from the biliary fluid. Subjective Date of service: 01/19/18 Principal diagnosis: biliary obstruction Interval history: Afebrile. Abdominal pain improving as well as nausea and vomiting. Had EGD and Stent placement by IP 01/11/18. No chills. Had elevated temp once yesterday with Tmax 100.5 and Tc of 99.0 Objective - Constitutional Vitals: Vital Signs - 12hr 01/19/18 01/19/18 07:51 15:43 Temperature 99.0 F 98.6 F Pulse Rate 70 73 Respiratory 20 20 Rate Blood Pressure 146/79 134/77 O2 Sat by Pulse 96 97 Oximetry General appearance: Present: no acute distress, well-nourished - EENT Eyes: PERRL, EOM intact - Neck Neck: supple, normal ROM - Respiratory Respiratory effort: normal Respiratory: bilateral: CTA - Cardiovascular Rhythm: regular Heart Sounds: Present: S1 & S2. Absent: gallop, rub Extremities: pulses intact, No edema, normal color, Full ROM - Gastrointestinal General gastrointestinal: Present: soft, non-tender, non-distended, normal bowel sounds - Integumentary Integumentary: clear, warm, dry - Musculoskeletal Musculoskeletal: 1, strength equal bilaterally - Neurologic Neurologic: moves all extremities - Psychiatric Psychiatric: memory intact, appropriate mood/affect, intact judgment & insight - Labs CBC & Chem 7: 01/20/18 06:30 01/20/18 06:30 Labs: Abnormal lab results 01/19/18 01/19/18 01/19/18 Range/Units 02:34 02:34 02:34 RBC 3.23 L (3.65-5.03) M/mm3 Hgb 8.3 L (10.1-14.3) gm/dl Hct 25.8 L (30.3-42.9) % MCH 26 L (28-32) pg RDW 24.1 H (13.2-15.2) % Lymph % (Auto) 2.2 L (13.4-35.0) % [place] % (Auto) 10.8 H (0.0-7.3) % Lymph # 0.2 L (1.2-5.4) K/mm3 [place] # 1.2 H (0.0-0.8) K/mm3 Seg Neutrophils % 85.5 H (40.0-70.0) % Seg Neutrophils # 9.2 H (1.8-7.7) K/mm3 Glucose 108 H (65-100) mg/dL Calcium 7.7 L (8.4-10.2) mg/dL Alkaline Phosphatase 224 H (35-129) units/L Total Protein 4.7 L (6.3-8.2) g/dL Albumin 2.3 L (3.9-5) g/dL Vancomycin Trough 28.4 H (5.0-20.0) ug/mL
[2018-01-19] MEDS: ROXICODONE PO PRN (23:14)
[2018-01-20] MEDS: DILAUDID IV PRN ×3 (00:17→09:47)
[2018-01-20] MEDS: REGLAN IV SCH (04:19)
[2018-01-20] MEDS: CARAFATE PO SCH (05:53)
[2018-01-20] MEDS: MERREM 1,000 MG in NACL 0.9% 100 ML IV SCH (05:53)
[2018-01-20 06:29] LABS: Hematocrit 28.7 % (30.3-42.9); Hemoglobin 9.1 gm/dl (10.1-14.3); Mean Corpuscular HGB Conc 32 % (30-34); Mean Corpuscular Volume 81 fl (79-97); Platelet Count 396 K/mm3 (140-440); Red Blood Count 3.55 M/mm3 (3.65-5.03)
[2018-01-20 06:36] LABS: Mean Corpuscular Hemoglobin 26 pg (28-32); Red Cell Distribution Width 23.9 % (13.2-15.2)
[2018-01-20 06:57] LABS: Alanine Aminotransferase 7 units/L (7-56); Albumin 2.2 g/dL (3.9-5); BUN/Creatinine Ratio 10; Blood Urea Nitrogen 7 mg/dL (7-17); Calcium 7.7 mg/dL (8.4-10.2); Hemolysis Index 0
[2018-01-20] MEDS: ROXICODONE PO PRN (07:28)
[2018-01-20] MEDS: VANCOMYCIN/0.45 NS 1 GM/250 ML 1 GM/250 ML BAG IV SCH (07:29)
[2018-01-20 08:13] LABS: Band Neutrophils # (Manual) 0.6 K/mm3; Basophils % (Manual) 0 % (0.0-1.8); Eosinophils % (Manual) 0 % (0.0-4.3); Total Cells Counted 100
[2018-01-20 08:14] LABS: Anisocytosis 1+; Hypochromasia 1+; Ovalocytes 1+
[2018-01-20 08:18] VITALS: BP 137/71
--- NOTE | 2018-01-20 09:34 | Discharge Summary ---
Providers - Providers Date of Admission: 01/06/18 11:08 Date of discharge: 01/20/18 Attending physician: NAYELI CHUNG 01/06/18 18:10 Consult to Physician [CONS] Routine Consulting Provider: LEANNE CLIFTON Reason For Exam: pancratitis, abdoninal pain Place consult to:: Sanya Notified:: PLEASE CALL MD IN AM Was contact made?: No 01/11/18 09:24 Consult to Interventional Radiology [CONS] Urgent Consulting Provider: BETHANY RUSHING Reason For Exam: biliary obstruction, needs ptc Notified:: will call radiology 01/12/18 16:48 Consult to Physician [CONS] Routine Consulting Provider: SAPNA EARL Reason For Exam: cancer on liver possibly head of pancrease Place consult to:: Dr. Denis Notified:: Doctor is aware and asked nurse to place drCarson on list Was contact made?: Yes Comment:: said to place patient on list 01/14/18 15:58 Consult to Physician [CONS] Routine Consulting Provider: CLAU POP Reason For Exam: WBC, elevated TB, biliary drain, cholangitis Place consult to:: dr. araujo Notified:: md Phone number called:: [phone] Was contact made?: Yes If yes, spoke with:: dr. 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 Please fax results to [phone] and call [phone] for critical lab results. 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 vomits 4-5 x a day. Bilious. Associated with Upper abdominal pain. Dull in nature, 8-10/10 in severity. nonradiating. No aggravating or relieving factors. Denies any hematemesis or melena. No fever or chills. Pt was wheeled into my office on a wheel chair in severe abdominal pain with a bag continuing greenish vomitus. Direct admission was requested as pt reaffirmed that pt has not been able to eat for the past 4 days. On admission BUN was elevate and creatinine were eldvated to 19 and 1.4 respectively. Transaminases were elevated twith a total bili of 4.5 and elevated lipase of 239. Pt was commence on iv hydration NPO, iv zofran pepcid and levaquin. Had EGD 01/10/18 and Stent placement by IP 01/11/18 attached to a drainage bag. Total billirubin and Alkaline phosphatse decreasxe to normal leverls. Had episoce of leukocytosis and mild fevr of 100.5 . Jacob culture from drain guerrero was intrdserttd was doen. It grew ESBL and Enterococcus. ID consulted Pt wads commence on Meropenem and Vanc. Fever and leukocytosis resoved. she is being discharged as gerard drainig from the dilirty drain had decreased and the drain capped. she is to follow up with GICr. Pedersen in 3-5 days, GI Oncologuy at [place] in [address] Earl in 10 day and PCP in 6 days. Disposition: TO HOME OR SELFCARE Time spent for discharge: 35 min Core Measure Documentation - Palliative Care Palliative Care/ Comfort Measures: Not Applicable - Core Measures Any of the following diagnoses?: none Exam - Constitutional Vitals: Temp Pulse Resp BP Pulse Ox 99.7 F H 74 20 137/71 94 01/20/18 07:49 01/20/18 07:49 01/20/18 07:49 01/20/18 07:48 01/20/18 07:49 General appearance: Present: no acute distress, well-nourished - EENT Eyes: Present: PERRL - Neck Neck: Present: supple, normal ROM - Respiratory Respiratory effort: normal Respiratory: bilateral: CTA - Cardiovascular Heart Sounds: Present: S1 & S2. Absent: rub, click - Extremities Extremities: pulses symmetrical, No edema Peripheral Pulses: within normal limits - Abdominal General gastrointestinal: Present: soft, non-tender, non-distended, normal bowel sounds - Integumentary Integumentary: Present: clear, warm, dry - Musculoskeletal Musculoskeletal: gait normal, strength equal bilaterally - Psychiatric Psychiatric: appropriate mood/affect, intact judgment & insight - Neurologic Neurologic: CNII-XII intact, moves all extremities Plan Activity: advance as tolerated Diet: diabetic Follow up with: RADHA PEDERSEN MD [Staff Physician] - 7 Days NAYELI CHUNG MD [Primary Care Provider] - 3 Days SAPNA EARL MD [Staff Physician] - 10 Days Prescriptions: Apixaban [Eliquis] 5 mg PO BID #60 tablet Bumetanide [Bumex 1 mg tab] 2 mg PO QDAY #30 tablet Carvedilol [Coreg] 12.5 mg PO BID #60 tablet Escitalopram [Lexapro] 10 mg PO DAILY #30 tablet fentaNYL [Duragesic] 75 mcg TD Q3D #9 patch Lisinopril [Zestril TAB] 20 mg PO BID #60 tablet Lovastatin Tab [Mevacor] 10 mg PO QPM #30 tablet Ondansetron [Zofran Odt] 4 mg PO Q8H PRN #30 tab.rapdis PRN Reason: Nausea oxyCODONE [Roxicodone TAB] 10 mg PO Q4H PRN #30 tablet PRN Reason: Pain, Moderate (4-6) Pantoprazole [Protonix TAB] 40 mg PO DAILY #30 tablet Spironolactone [Aldactone] 25 mg PO QDAY #30 tablet Sucralfate [Carafate] 1 gm PO Q6HR 30 Days oral.liqd
[2018-01-20] MEDS: ZESTRIL PO SCH (09:48)
[2018-01-20] MEDS: COREG PO SCH (09:48)
[2018-01-20] MEDS: PROTONIX PO SCH (09:48)
[2018-01-20] MEDS: LOVENOX SUB-Q SCH (09:48)
[2018-01-20] MEDS: APRESOLINE PO SCH (09:48)
== END 2018-01-20 11:30 | disposition home or self-care (01) | DRG 374 ==
LOC: 3A 10:37 → UNDOADMIN 10:37 → 3A 11:08
PROVIDERS: ADMIT Family Medicine; ATTEND Family Medicine
PROC: 0DB68ZX Excision of Stomach, Via Natural or Artificial Opening Endoscopic, Diagnostic (ICD-10-PCS; principal; 2018-01-10)
PROC: 0DB98ZX Excision of Duodenum, Via Natural or Artificial Opening Endoscopic, Diagnostic (ICD-10-PCS; 2018-01-10)
PROC: 0F9930Z Drainage of Common Bile Duct with Drainage Device, Percutaneous Approach (ICD-10-PCS; 2018-01-11)
PROC: BF131ZZ Fluoroscopy of Gallbladder and Bile Ducts using Low Osmolar Contrast (ICD-10-PCS; 2018-01-11)
PROC: 02HV33Z Insertion of Infusion Device into Superior Vena Cava, Percutaneous Approach (ICD-10-PCS; 2018-01-18)
DX: C16.9 Malignant neoplasm of stomach, unspecified (principal); K85.90 Acute pancreatitis without necrosis or infection, unspecified; K83.1 Obstruction of bile duct; C17.0 Malignant neoplasm of duodenum; I50.32 Chronic diastolic (congestive) heart failure; N17.9 Acute kidney failure, unspecified; K83.0 Cholangitis; K86.1 Other chronic pancreatitis; C25.0 Malignant neoplasm of head of pancreas; Z68.34 Body mass index [BMI] 34.0-34.9, adult; I11.0 Hypertensive heart disease with heart failure; I48.2 Chronic atrial fibrillation; Z98.84 Bariatric surgery status; K21.9 Gastro-esophageal reflux disease without esophagitis; Z88.6 Allergy status to analgesic agent; Z88.1 Allergy status to other antibiotic agents; Z88.8 Allergy status to other drugs, medicaments and biological substances; E11.43 Type 2 diabetes mellitus with diabetic autonomic (poly)neuropathy; K31.84 Gastroparesis; E87.6 Hypokalemia; E83.39 Other disorders of phosphorus metabolism; Z79.01 Long term (current) use of anticoagulants; Z85.41 Personal history of malignant neoplasm of cervix uteri; Z85.43 Personal history of malignant neoplasm of ovary; K76.0 Fatty (change of) liver, not elsewhere classified; K83.8 Other specified diseases of biliary tract; N20.0 Calculus of kidney; K44.9 Diaphragmatic hernia without obstruction or gangrene; K26.9 Duodenal ulcer, unspecified as acute or chronic, without hemorrhage or perforation; D63.8 Anemia in other chronic diseases classified elsewhere; G89.29 Other chronic pain; J45.909 Unspecified asthma, uncomplicated; I25.10 Atherosclerotic heart disease of native coronary artery without angina pectoris; E66.9 Obesity, unspecified
CPT/HCPCS: 36415; 49446; 71045; 74177; 74178; 76700; 80048; 80053; 80202; 82150; 82378; 82607; 82747; 82962; 83550; 83690; 83735; 84100; 85007; 85025; 85610; 85730; 86038; 86140; 86301; 86304; 87076; 87116; 87186; 88305; 88341; 88342; C1729; C1751; C1769; C9113; J0360; J1170; J1644; J1650; J1956; J2185; J2250; J2270; J2405; J2704; J2765; J3010; J3370; J7030; J7040; J7050; Q9967